=== PATIENT | male | born 1940 | race Caucasian/White ===

== ENCOUNTER → 2016-06-13 | Outpatient (CLI) | payer MEDICARE ==
[~2016-06-13] MED LIST: ASPI325T28 PO; CALCTAB43 PO; CILO100T PO; CO ENZYME Q10; CO-E100C PO; ECOT325T5; FOLI1TAB2 PO; FURO1TAB15 PO; FURO80TA2; GEMF600T; LEVA750T; LEVO125T3 PO; LEVO175T2 PO; LEVOTHROID; LISI-538 PO; LISI10TA4; METH2.5TA PO; NIFE20CA PO; NIFE60TA61 PO; PERC5TAB8; PRED1TABL PO; PROTPAK PO; SAW PALMETTO PO; SAW450CA7 PO; SYNT175T; TRAM50TA2 PO; VITA100072 PO; [UNRECOGNIZED DRUG - CODE] PO
--- NOTE | 2016-06-13 15:28 | REP ---
LOW DOSE SCREENING CT LUNGS: Low dose screening CT of the lungs is performed in the axial plane. No IV contrast was administered. There is a suspicious appearing mass in the lingular segment of the left upper lobe measuring 2.6 x 2.0 cm. More superiorly, in the left upper lobe is a bilobed irregular nodular opacity measuring 1.3 x 0.7 cm. There is an adjacent more medially located 5 mm nodule in the left upper lobe. There are scattered interstitial fibrotic changes diffusely bilaterally. IMPRESSION: Dominant suspicious parenchymal mass with irregular margins in the left upper lobe measuring 2.6 x 2.0 cm. Two other nodules are seen more superiorly in the left upper lobe. Recommend dedicated CT of the chest with IV contrast. Signed by Bryan Knutson MD 06/13/2016 03:59 P
== END ==
LOC: M RAD 14:22
PROVIDERS: ATTEND Family Medicine
DX: Z12.2 Encounter for screening for malignant neoplasm of respiratory organs (principal); R91.8 Other nonspecific abnormal finding of lung field; F17.210 Nicotine dependence, cigarettes, uncomplicated

== ENCOUNTER → 2016-07-08 | Outpatient (CLI) | payer MEDICARE ==
[~2016-07-08] MED LIST changes: +ISOVUE-370 76% 100ML VIAL (Q9967) As Ordered ONE
--- NOTE | 2016-07-08 10:48 | REP ---
CT of the chest with IV contrast: Comparison is the low-dose lung screening CT dated 06/13 2016. There is a mass in the lingular segment of the left upper lobe on image 56 measuring 2.6 x 2.1 cm, similar to the comparison CT. There is a bilobed nodule posterolaterally in the left upper lobe on image 26 measuring 1.4 x 7.1 mm, similar to the comparison study. There is a 5 mm nodule posteromedially in the left upper lobe, adjacent to the major fissure, image 27, similar to the comparison study. No other lung nodules or masses are identified. There are no infiltrates or effusions. There are are the multiple bulla scattered throughout the lung hernandez bilaterally, compatible with bullous emphysema. The azygos lobe is upper normal size measuring 11 mm short axis with a fatty hilus. No other evidence of mediastinal lymph node enlargement. There is no hilar or axillary lymph node enlargement. The thoracic aorta is unremarkable except for occasional calcified atheroma. Cardiac size is normal. There is calcified atheroma in the coronary arteries. Upper abdomen: There is no adrenal mass. The visualized hepatic parenchyma, gallbladder, pancreas and spleen are unremarkable. Impression: There are three left lung nodules as described, the largest in the lingular segment of the left upper lobe. No definite adenopathy. No infiltrate or effusion. There is evidence for bullous emphysema. I would recommend a PET scan for follow up. Biopsy might also be considered. Signed by Bryan Stock MD 07/08/2016 10:40 A
== END ==
LOC: M RAD 09:03
PROVIDERS: ATTEND Family Medicine
DX: R91.8 Other nonspecific abnormal finding of lung field (principal); J43.9 Emphysema, unspecified
CPT/HCPCS: 71260; Q9967

== ENCOUNTER → 2016-07-17 | Outpatient (REF) | payer MEDICARE ==
[~2016-07-17] MED LIST changes: -ISOVUE-370 76% 100ML VIAL (Q9967) As Ordered ONE
[2016-07-17 14:14] LABS: INR 0.98
== END ==
LOC: M LAB REF 12:52
PROVIDERS: ATTEND Internal Medicine Pulmonary Disease
DX: R91.8 Other nonspecific abnormal finding of lung field (principal)

== ENCOUNTER → 2016-08-01 | Outpatient (CLI) | payer MEDICARE ==
[~2016-08-01] MED LIST changes: +LIDOCAINE 1% MDV 20ML VIAL As Ordered ONE
--- NOTE | 2016-08-01 09:55 | REP ---
Chest x-ray: Single PA view. History: Post needle biopsy chest x-ray. The patient had a left upper lobe mass biopsied under CT guidance. Findings: There is no evidence of pneumothorax or hydrothorax. Ill-defined density in the left mid lung zone corresponds to the biopsy target. No other finding. Impression: No evidence of pneumothorax or other complication. Signed by To Saab MD 08/01/2016 12:39 P
--- NOTE | 2016-08-01 16:36 | REP ---
CT GUIDED LEFT LOWER LOBE LUNG BIOPSY: The procedure was performed under the direct supervision of Dr. Saab. The patient has a history of a 2.6 x 2.1 cm mass in the lingular segment of the left upper lobe seen on a previous CAT scan dated 07/08/2016. The risks and benefits of the procedure were explained to the patient and informed consent was obtained. The left upper lobe lung mass was localized using CT guidance. The skin was prepped and draped in a sterile fashion. 1% Lidocaine was used as a local anesthetic. Using CT guidance a 19/20 coaxial needle biopsy system was inserted and then advanced into the mass. 3 core biopsy samples were obtained and sent to the lab. The patient tolerated the procedure well and there were no immediate complications. After the appropriate amount of monitored convalescence the patient was discharged from the department. Reviewed by DUY Swain 08/02/2016 08:47 AEdited and Signed by To Saab MD 08/02/2016 12:45 P
== END ==
LOC: M RADPRO 08:05
PROVIDERS: ATTEND Internal Medicine Pulmonary Disease
DX: C34.12 Malignant neoplasm of upper lobe, left bronchus or lung (principal); Z79.899 Other long term (current) drug therapy; Z79.52 Long term (current) use of systemic steroids

== ENCOUNTER → 2016-08-14 | Outpatient (CLI) | payer MEDICARE ==
[~2016-08-14] MED LIST changes: -LIDOCAINE 1% MDV 20ML VIAL As Ordered ONE
--- NOTE | 2016-08-19 11:32 | REP ---
PET/CT: History: Initial staging, non-small cell carcinoma of the lung. CT guided needle biopsy diagnosis moderately differentiated squamous cell carcinoma. Comparisons: Comparison chest CT study 07/08/2016. TECHNIQUE: 73 minutes following the intravenous injection of a 9.9 mCi dose of F-18 FDG, three-dimensional PET scintigraphy is acquired from the skull base to the proximal thighs. Triplanar noncontrast CT scanning is acquired through the same anatomic range for attenuation correction, and image registration with scan parameters optimized to minimize radiation exposure to the patient. PET scintigraphy and CT datasets were fused and displayed on a workstation with multiplanar and projection display capability. PET/CT Findings: The patient's known left upper lobe mass is hypermetabolic, although only mildly. Maximum standard uptake value is 2.8 in the lesion. There is no other abnormal hypermetabolic uptake in the chest. However, there is a subcentimeter joann focus of hypermetabolic uptake in the left parotid gland preauricular region with maximum standard uptake value 4.1. Similarly, there is a normal sized 1 cm intraparotid lymph node on the right more inferiorly adjacent to the sternocleidomastoid muscle with maximum standard uptake value 4.1. The head and neck soft tissues are otherwise unremarkable. In the abdomen and pelvis, there is normal FDG distribution to the liver and spleen and genitourinary tract and gastrointestinal tract. There is slight thickening of the left adrenal gland. In the posterior aspect of this somewhat thickened left adrenal gland, there is a focus of mildly hypermetabolic uptake. Maximum standard uptake value here is 2.0. This left adrenal gland thickening measures 1.8 cm in greatest diameter. Incidental note is made of abdominal aortic aneurysm and aneurysmal dilation of the celiac axis. Impression: The malignant left upper lobe mass is mildly hypermetabolic. There are intraparotid joann foci of hypermetabolic uptake, one in each parotid gland. These are of uncertain significance. In addition, there is a suspicious area of thickening in the left adrenal gland with mildly hypermetabolic uptake. This is suspicious for a metastatic site. Unreviewed
== END ==
LOC: M PLARAD 16:16
PROVIDERS: ATTEND Internal Medicine Pulmonary Disease
DX: R93.8 Abnormal findings on diagnostic imaging of other specified body structures (principal)
CPT/HCPCS: 78815; A9552

== ENCOUNTER → 2016-09-10 | Outpatient (CLI) | payer MEDICARE ==
[~2016-09-10] MED LIST changes: +LIDOCAINE 1% MDV 20ML VIAL As Ordered ONE
--- NOTE | 2016-09-12 19:32 | REP ---
CT GUIDED LEFT ADRENAL MASS BIOPSY: The procedure was performed under the direct supervision of Dr. Knutson The patient has a history of mildly hypermetabolic uptake in the left adrenal gland seen of a previous PET scan performed on 08/14/2016 The risks and benefits of the procedure were explained to the patient and informed consent was obtained. The left adrenal mass was localized using CT guidance. The skin was prepped and draped in a sterile fashion. 1% Xylocaine was used as a local anesthetic. Using CT guidance a 19/20 gauge coaxial needle biopsy system was inserted and 4 core biopsy samples were obtained. The patient tolerated the procedure well and there were no immediate complications. After the appropriate amount of monitored convalescence, the patient was discharged from the department. Reviewed by DUY Swain 09/10/2016 04:36 PSigned by Bryan Knutson MD 09/12/2016 07:19 P
== END ==
LOC: M RADPRO 08:11
PROVIDERS: ATTEND Thoracic Surgery (Cardiothoracic Vascular Surgery)
DX: C34.12 Malignant neoplasm of upper lobe, left bronchus or lung (principal); D35.02 Benign neoplasm of left adrenal gland; F17.210 Nicotine dependence, cigarettes, uncomplicated; Z79.82 Long term (current) use of aspirin; Z79.52 Long term (current) use of systemic steroids; Z79.899 Other long term (current) drug therapy

== ENCOUNTER → 2016-09-20 | Outpatient (CLI) | payer MEDICARE ==
[~2016-09-20] MED LIST changes: -LIDOCAINE 1% MDV 20ML VIAL As Ordered ONE; +NIFE60TA6 PO; +ZOLO50TA PO
--- NOTE | 2016-09-20 13:43 | REP ---
CT STUDY OF THE CHEST WITHOUT CONTRAST: HISTORY: Left upper lung cancer. Comparison CT study is from July 08, 2016. CT FINDINGS: The previously noted malignant left upper lobe nodule is again seen. This measures 2.4 cm in greatest diameter today and appears to be unchanged. There is a small linear area of what appears to be fibrosis or plate-like atelectasis extending posterior and peripheral to the lesion which is better seen although not new. The lesion is again noted be cavitary. There has been no change in the size or appearance of the left apical upper lobe pulmonary nodule. Today this measures 12.4 x 6.0 cm and is felt to be unchanged. It is seen on today's study page 21 of 116 series 201. Nearby there is a third left upper lobe nodule measuring 4 mm today unchanged since July 08, 2016. This is seen on page 23 of 116. No other pulmonary nodule is seen. Emphysematous changes persist throughout the upper lobes bilaterally. No pleural effusion is seen. Heavy coronary artery vascular calcification is noted. Some slight thickening of the left adrenal gland is seen. This was recently biopsied. There is fatty infiltration of the liver. No hilar or mediastinal mass or adenopathy is seen. No bony destructive lesion is noted. IMPRESSION: No significant change in the appearance of the cavitary spiculated mass in the left upper lobe or in the other two smaller noncalcified left upper lobe nodules in the interval since July 08, 2016 prior study. Signed by To Saab MD 09/20/2016 04:26 P
== END ==
LOC: M RAD 13:30
PROVIDERS: ATTEND Thoracic Surgery (Cardiothoracic Vascular Surgery)
DX: C34.12 Malignant neoplasm of upper lobe, left bronchus or lung (principal)

== ENCOUNTER → 2016-09-20 | Outpatient (CLI) | payer MEDICARE ==
[~2016-09-20] MED LIST changes: +ALBU17IN INH; -CALCTAB43 PO; +CALCTAB74 PO; -FOLI1TAB2 PO; +FOLI1TAB4 PO; -FURO1TAB15 PO; +FURO80TA2 PO; -LEVO125T3 PO; +LEVO125T4 PO; +LOPR1TAB6 PO; +PRED20TA PO; +SAW450CA2 PO; -SAW450CA7 PO
[2016-09-20 11:27] LABS: ABG BASE EXCESS 0.6 (-2.0-2.0); ABG DEVICE ROOM AIR; ABG HCO3 24.1 MEQ/L (22.0-26.0); ABG PARTIAL PRESSURE CO2 35.3 mmHg (35.0-45.0); ABG PARTIAL PRESSURE O2 76.7 mmHg (75.0-100.0); ABG TOTAL CO2 25.2 MEQ/L (23.0-31.0); ABG pH (ARTERIAL) 7.452 UNITS (7.350-7.450)
[2016-09-20 11:50] LABS: MEAN CORPUSCULAR HEMOGLOBIN 33.7 pg (27.0-33.0); MEAN CORPUSCULAR HGB CONC 33.9 g/dl (32.0-36.5); MEAN CORPUSCULAR VOLUME 99.3 fl (80.0-96.0); RED CELL DISTRIBUTION WIDTH 15.7 % (11.5-14.5); WHITE BLOOD COUNT 7.9 K/mm3 (4.0-10.0)
[2016-09-20 12:00] LABS: INR 1.03
[2016-09-20 12:10] LABS: ANION GAP 5 MEQ/L (8-16); BLOOD UREA NITROGEN 15 MG/DL (7-18); CALCIUM LEVEL 9.4 MG/DL (8.8-10.2); CARBON DIOXIDE LEVEL 27 MEQ/L (21-32); CHLORIDE LEVEL 107 MEQ/L (98-107); CREATININE FOR GFR 0.96 MG/DL (0.70-1.30); GLOMERULAR FILTRATION RATE > 60.0 (>42); GLUCOSE, FASTING 116 MG/DL (83-110); SODIUM LEVEL 139 MEQ/L (136-145)
--- NOTE | 2016-09-20 12:46 | REP ---
CHEST, TWO VIEWS: HISTORY: Left upper lobe cancer. An ill-defined parenchymal density is present in the left mid lung unchanged compared to the previous study. This is at the site of a previous biopsy. The right lung is clear. The heart is normal in size. The pulmonary vasculature is normal in appearance. The bony structure is intact. IMPRESSION: There is an ill-defined parenchymal density in the left mid lung unchanged compared to the previous study. This is at the site of a previous biopsy. Signed by Brady Jacobo MD 09/20/2016 01:16 P
== END ==
LOC: M ADMPAT 09:49
PROVIDERS: ATTEND Thoracic Surgery (Cardiothoracic Vascular Surgery)
DX: C34.12 Malignant neoplasm of upper lobe, left bronchus or lung (principal)

== ENCOUNTER → 2016-09-25 | Outpatient (CLI) | payer MEDICARE ==
[~2016-09-25] MED LIST changes: -ALBU17IN INH; +CALCTAB43 PO; -CALCTAB74 PO; +FOLI1TAB2 PO; -FOLI1TAB4 PO; +FURO1TAB15 PO; -FURO80TA2 PO; +LEVO125T3 PO; -LEVO125T4 PO; +LIDOCAINE 1% MDV 20ML VIAL As Ordered ONE; -LOPR1TAB6 PO; -PRED20TA PO; -SAW450CA2 PO; +SAW450CA7 PO
--- NOTE | 2016-09-25 14:21 | REP ---
ULTRASOUND-GUIDED BILATERAL PAROTID NODULE BIOPSY: The procedure was performed under the direct supervision of Dr. Knutson. The patient has a history of intraparotid joann foci of hypermetabolic uptake, one in each parotid gland seen on a previous PET scan performed on 08/14/2016. The risks and benefits of the procedure were explained to the patient, and informed consent was obtained. The right and left parotid nodules were localized using ultrasound guidance. The skin was prepped and draped in a sterile fashion. The left parotid nodule was addressed first. 1% Xylocaine was used as a local anesthetic. Using ultrasound guidance, four fine-needle aspirations were obtained using 25 gauge needles. The right parotid nodule was then addressed. 1% Xylocaine was used as a local anesthetic. Using ultrasound guidance, four fine-needle aspirations were obtained using 25 gauge needles. All samples were sent to the lab for analysis. The patient tolerated the procedure well, and there were no immediate complications. After the appropriate amount of monitored convalescence, the patient was discharged from the department. Reviewed by DUY Swain 09/25/2016 04:57 PEdited and Signed by Bryan Knutson MD 09/25/2016 07:53 P
== END ==
LOC: M RADPRO 10:39
PROVIDERS: ATTEND Otolaryngology
DX: D11.0 Benign neoplasm of parotid gland (principal); Z87.891 Personal history of nicotine dependence; Z91.018 Allergy to other foods; Z79.899 Other long term (current) drug therapy

== ENCOUNTER 2016-09-27 07:01 | Inpatient (IN) | payer MEDICARE ==
[2016-09-20 10:21] VITALS: BP 120/60
[~2016-09-27] VITALS: Ht 165.1 cm; Wt 75.8 kg
[2016-09-27] VITALS (11 sets, daily range): BP systolic 136–157; BP diastolic 65–74; O2SAT 93–97
[~2016-09-27 07:01] MED LIST changes: -CALCTAB43 PO; +CALCTAB74 PO; -FOLI1TAB2 PO; +FOLI1TAB4 PO; -FURO1TAB15 PO; +FURO80TA2 PO; -LEVO125T3 PO; +LEVO125T4 PO; -LIDOCAINE 1% MDV 20ML VIAL As Ordered ONE; -NIFE60TA6 PO; +SAW450CA2 PO; -SAW450CA7 PO
[2016-09-27] MEDS ORDERED: LR 1,000 ML IV ONE (07:15)
[2016-09-27] MEDS ORDERED: MUPIROCIN 2% OINT 22 GM TUBE TOP ONE (07:30)
[2016-09-27] MEDS ORDERED: BUPIVACAINE HCL 0.5% 30 ML VIAL As Ordered ONE (07:32)
[2016-09-27] MEDS ORDERED: BUPIVACAINE LIPOSOME/PF 1.3% 20 ML VIAL (13.3MG/ML)(EXPAREL) As Ordered ONE ×2 (07:32→11:28)
[2016-09-27] MEDS ORDERED: MIDAZOLAM INJ 2 MG/2 ML VIAL (J2250) As Ordered ONE ×2 (08:02→09:38)
[2016-09-27] MEDS ORDERED: fentaNYL 100 MCG/2 ML INJECTION (J3010) As Ordered ONE (08:02)
[2016-09-27] MEDS ORDERED: PANTOPRAZOLE 40MG INJ (PROTONIX) (C9113) IV SCH (09:00)
[2016-09-27] MEDS ORDERED: MIDAZOLAM INJ 2 MG/2 ML VIAL (J2250) IV ONE (09:15)
[2016-09-27] MEDS ORDERED: fentaNYL 100 MCG/2 ML INJECTION (J3010) IV ONE (09:15)
[2016-09-27] MEDS ORDERED: ETOMIDATE INJ 20MG/10ML VIAL As Ordered ONE (09:38)
[2016-09-27] MEDS ORDERED: LIDOCAINE 2% INJ 100 MG/5 ML SDV (FOR ANES.) As Ordered ONE (09:38)
[2016-09-27] MEDS ORDERED: ONDANSETRON 4MG/2ML VIAL (J2405) As Ordered ONE ×2 (09:38→11:34)
[2016-09-27] MEDS ORDERED: PROPOFOL 200 MG/20 ML VIAL As Ordered ONE (09:38)
[2016-09-27] MEDS ORDERED: ROCURONIUM BROMIDE 50 MG/5 ML VIAL/SYRINGE As Ordered ONE ×2 (09:38→11:17)
[2016-09-27] MEDS ORDERED: DESFLURANE 240 ML INHALANT As Ordered ONE ×2 (09:38→10:08)
[2016-09-27] MEDS ORDERED: fentaNYL 250 MCG/5 ML INJECTION (J3010) As Ordered ONE (09:38)
[2016-09-27] MEDS ORDERED: NIFE60TA6 PO (09:58)
[2016-09-27] MEDS ORDERED: BUPIVACAINE HCL 0.25% 30 ML VIAL As Ordered ONE (10:08)
[2016-09-27] MEDS ORDERED: GLYCOPYRROLATE INJ 0.2 MG/ML 2 ML VIAL As Ordered ONE ×2 (10:15→11:34)
[2016-09-27] MEDS ORDERED: HYDROmorphone HCL 2 MG/ML 1ML VIAL (J1170) As Ordered ONE (10:58)
[2016-09-27] MEDS ORDERED: LABETALOL HCL 100 MG/20 ML VIAL As Ordered ONE (11:26)
[2016-09-27] MEDS ORDERED: ONDANSETRON 4MG/2ML VIAL (J2405) IV PRN ×2 (11:30→13:00)
[2016-09-27] MEDS ORDERED: METOCLOPRAMIDE INJ 10MG/2ML VIAL (J2765) IV PRN (11:30)
[2016-09-27] MEDS ORDERED: diphenhydrAMINE INJ 50MG/ML VIAL (J1200) IV PRN (11:30)
[2016-09-27] MEDS ORDERED: NALOXONE INJ 0.4 MG/1 ML VIAL (J2310) IV PRN (11:30)
[2016-09-27] MEDS ORDERED: WALLBOXKEY XX PRN (11:30)
[2016-09-27] MEDS ORDERED: EPIDURAL/PCA KEYS XX PRN (11:30)
[2016-09-27] MEDS ORDERED: NEOSTIGMINE 1MG/ML 5 ML SYRINGE (J2710) As Ordered ONE (11:34)
[2016-09-27] MEDS ORDERED: PHENYLephrine HCL 500 MCG/5 ML (100MCG/ML) SYRINGE (J2370) As Ordered ONE ×2 (11:40→12:05)
[2016-09-27] MEDS ORDERED: LEVALBUTEROL 1.25 MG/0.5 ML CONCENTRATE NEB NEB PRN (12:30)
[2016-09-27] MEDS ORDERED: BISACODYL 10 MG SUPP PR PRN (12:30)
[2016-09-27] MEDS ORDERED: NORCO, ANEXSIA 5/325MG TABLET (HYDROcodone/ACETAMINOPHEN) PO PRN (12:30)
[2016-09-27] MEDS ORDERED: PERCOCET 5MG/325MG TAB PO PRN ×2 (12:30)
[2016-09-27] MEDS ORDERED: ACETAMINOPHEN TAB 650MG DOSE (2X325MG) PO PRN (12:30)
[2016-09-27 12:53] LABS: ABG BASE EXCESS -5.1 (-2.0-2.0); ABG HCO3 22.6 MEQ/L (22.0-26.0); ABG PARTIAL PRESSURE CO2 52.5 mmHg (35.0-45.0); ABG PARTIAL PRESSURE O2 171.1 mmHg (75.0-100.0); ABG STANDARD HCO3 20.3 MEQ/L (22.0-26.0); ABG TOTAL CO2 24.2 MEQ/L (23.0-31.0); ABG pH (ARTERIAL) 7.251 UNITS (7.350-7.450)
[2016-09-27 12:58] LABS: BASO % 0.3 % (0.0-1.0); EOS # 0.1 K/mm3 (0.0-0.50); EOS % 0.5 % (0.0-3.0); LARGE UNSTAINED CELL % 0.1 % (0.0-4.0); LYMPH # 0.6 K/mm3 (1.5-4.5); LYMPH % 4.5 % (24.0-44.0); MEAN CORPUSCULAR HEMOGLOBIN 34.1 pg (27.0-33.0); MEAN CORPUSCULAR VOLUME 100.1 fl (80.0-96.0); MONO # 0.2 K/mm3 (0.0-0.8); MONO % 1.2 % (0.0-5.0); NEUTROPHILS # 12.5 K/mm3 (1.8-7.7); NEUTROPHILS % 93.3 % (36.0-66.0); PLATELET COUNT, AUTOMATED 308 k/mm3 (150-450); WHITE BLOOD COUNT 13.4 K/mm3 (4.0-10.0)
[2016-09-27] MEDS ORDERED: fentaNYL 100 MCG/2 ML INJECTION (J3010) IV PRN (13:00)
[2016-09-27] MEDS ORDERED: LR 1,000 ML IV SCH (13:00)
[2016-09-27 13:15] LABS: CALCIUM LEVEL 7.8 MG/DL (8.8-10.2); CREATININE FOR GFR 1.31 MG/DL (0.70-1.30); GLOMERULAR FILTRATION RATE 56.8 (>42); POTASSIUM SERUM 4.6 MEQ/L (3.5-5.1)
--- NOTE | 2016-09-27 13:36 | REP ---
PORTABLE CHEST: AP portable view of the chest is performed. Comparison made with prior exam 09/20/2016. There are two left chest tubes. Patient has had left upper lobectomy. There is mild emphysema in the left chest wall. Cardiomediastinal silhouette appears somewhat magnified. There are coarsened interstitial opacities in the right lung base. Signed by Bryan Knutson MD 09/27/2016 05:23 P
[2016-09-27] MEDS: LEVALBUTEROL 1.25 MG/0.5 ML CONCENTRATE NEB NEB SCH ×2 (14:00→20:16)
[2016-09-27] MEDS ORDERED: KETOROLAC 30 MG/ML VIAL (J1885) IV SCH (14:00)
[2016-09-27 14:10] LABS: ABG BASE EXCESS -3.1 (-2.0-2.0); ABG HCO3 22.6 MEQ/L (22.0-26.0); ABG PARTIAL PRESSURE CO2 42.8 mmHg (35.0-45.0); ABG PARTIAL PRESSURE O2 98.3 mmHg (75.0-100.0); ABG STANDARD HCO3 21.9 MEQ/L (22.0-26.0); ABG TOTAL CO2 23.9 MEQ/L (23.0-31.0)
[2016-09-27] MEDS: FENTANYL/BUPIVACAINE/NACL BAG 250 ML EPIDURAL SCH (16:15)
[2016-09-27] MEDS: KCL 20MEQ IN D5/NS 1000ML 1,000 ML IV SCH (16:16)
[2016-09-27] MEDS: MOM 30ML SUSPENSION UDC PO SCH (16:59)
[2016-09-27] MEDS: LISINOPRIL 20 MG TAB PO SCH (16:59)
[2016-09-27] MEDS: DOCUSATE SODIUM 100 MG CAP PO SCH ×2 (16:59→21:18)
[2016-09-27] MEDS ORDERED: CALCIUM/VITAMIN D 500 MG TAB PO SCH ×2 (21:00→21:18)
[2016-09-27] MEDS: NIFEdipine 60 MG XL TAB PO SCH (21:18)
[2016-09-27] MEDS: predniSONE 1 MG TAB PO SCH (21:18)
[2016-09-27] MEDS: HEPARIN SOD (PORCINE) 5000 UNITS/ML VIAL SC SCH (21:19)
[2016-09-27] MEDS: CALCIUM/VITAMIN D 500 MG TAB PO SCH (21:41)
[2016-09-28] VITALS (17 sets, daily range): BP systolic 116–170; BP diastolic 60–77; O2SAT 90–95
[2016-09-28] MEDS: LEVALBUTEROL 1.25 MG/0.5 ML CONCENTRATE NEB NEB SCH ×4 (01:40→20:11)
[2016-09-28] MEDS: KCL 20MEQ IN D5/NS 1000ML 1,000 ML IV SCH ×2 (02:32→16:40)
[2016-09-28 05:29] LABS: BASO % 0.2 % (0.0-1.0); EOS % 0.1 % (0.0-3.0); LARGE UNSTAINED CELL # 0.1 K/mm3 (0.0-0.4); LARGE UNSTAINED CELL % 0.8 % (0.0-4.0); LYMPH # 1.2 K/mm3 (1.5-4.5); LYMPH % 7.9 % (24.0-44.0); MEAN CORPUSCULAR HEMOGLOBIN 33.9 pg (27.0-33.0); MEAN CORPUSCULAR HGB CONC 33.5 g/dl (32.0-36.5); MEAN CORPUSCULAR VOLUME 101.2 fl (80.0-96.0); MONO # 0.5 K/mm3 (0.0-0.8); MONO % 3.8 % (0.0-5.0); NEUTROPHILS # 11.8 K/mm3 (1.8-7.7); NEUTROPHILS % 87.3 % (36.0-66.0); PLATELET COUNT, AUTOMATED 238 k/mm3 (150-450); RED CELL DISTRIBUTION WIDTH 16.1 % (11.5-14.5); WHITE BLOOD COUNT 13.5 K/mm3 (4.0-10.0)
[2016-09-28 05:36] LABS: ANION GAP 5 MEQ/L (8-16); BLOOD UREA NITROGEN 17 MG/DL (7-18); CALCIUM LEVEL 8.2 MG/DL (8.8-10.2); CARBON DIOXIDE LEVEL 29 MEQ/L (21-32); CHLORIDE LEVEL 102 MEQ/L (98-107); CREATININE FOR GFR 0.99 MG/DL (0.70-1.30); GLOMERULAR FILTRATION RATE > 60.0 (>42); GLUCOSE, FASTING 132 MG/DL (83-110); POTASSIUM SERUM 4.1 MEQ/L (3.5-5.1); SODIUM LEVEL 136 MEQ/L (136-145)
[2016-09-28 06:08] LABS: ABG BASE EXCESS -1.2 (-2.0-2.0); ABG HCO3 23.2 MEQ/L (22.0-26.0); ABG PARTIAL PRESSURE O2 78.2 mmHg (75.0-100.0); ABG STANDARD HCO3 23.4 MEQ/L (22.0-26.0); ABG TOTAL CO2 24.3 MEQ/L (23.0-31.0); ABG pH (ARTERIAL) 7.403 UNITS (7.350-7.450)
--- NOTE | 2016-09-28 08:48 | REP ---
Chest x-ray: Two views. History: Status post left upper lobectomy. Comparison study September 27, 2016 at 01:06 p.m. Findings: There are two left-sided chest tubes again noted in place. Mild extrathoracic soft tissue gas is seen on the left. Left hemidiaphragm is slightly elevated consistent with left upper lobectomy. An epidural catheter and EKG monitoring electrodes are again seen. Mild cardiomegaly is noted. No new infiltrate is seen. Impression: Satisfactory postoperative chest. Signed by To Saab MD 09/28/2016 09:55 A
[2016-09-28] MEDS: PANTOPRAZOLE 40MG TAB (PROTONIX) PO SCH (09:41)
[2016-09-28] MEDS: CYANOCOBALAMIN 500 MCG TAB PO SCH (09:41)
[2016-09-28] MEDS: MOM 30ML SUSPENSION UDC PO SCH (09:41)
[2016-09-28] MEDS: LEVOTHYROXINE 100MCG TABLET (0.1MG) PO SCH (09:41)
[2016-09-28] MEDS: SERTRALINE HCL 50 MG TAB PO SCH (09:42)
[2016-09-28] MEDS: FOLIC ACID 1 MG TAB PO SCH (09:42)
[2016-09-28] MEDS: CALCIUM/VITAMIN D 500 MG TAB PO SCH ×2 (09:42→20:28)
[2016-09-28] MEDS: predniSONE 1 MG TAB PO SCH ×2 (09:42→20:28)
[2016-09-28] MEDS: NIFEdipine 60 MG XL TAB PO SCH ×2 (09:42→20:28)
[2016-09-28] MEDS: LISINOPRIL 20 MG TAB PO SCH (09:42)
[2016-09-28] MEDS: HEPARIN SOD (PORCINE) 5000 UNITS/ML VIAL SC SCH ×2 (09:42→20:28)
[2016-09-28] MEDS: DOCUSATE SODIUM 100 MG CAP PO SCH ×2 (09:42→20:28)
[2016-09-28] MEDS: FUROSEMIDE 80 MG TAB PO SCH (09:42)
[2016-09-28] MEDS: CO-ENZYME Q10 50 MG CAP PO SCH (09:43)
[2016-09-28] MEDS: ACETAMINOPHEN 500 MG TAB PO PRN (10:42)
[2016-09-28] MEDS ORDERED: KETOROLAC 30 MG/ML VIAL (J1885) IV ONE (11:00)
--- NOTE | 2016-09-28 11:44 | RO ---
DATE OF PROCEDURE: 09/27/2016 PREPROCEDURE DIAGNOSIS: Left upper lobe lung cancer. POSTPROCEDURE DIAGNOSIS: Left upper lobe lung cancer. PROCEDURE: Left upper lobectomy, mediastinal lymphadenectomy, five-level rib block and bronchoscopy. SURGEON: Dr. Franki Fulton BRAND REPRESENTATIVE: ANESTHESIA: FINDINGS: There was an approximately 2-3 cm left upper lobe lesion. This was previously noted from the CT scan. The lymphadenectomy showed grossly anthracotic nodes. There was a complete fissure, and there were four separate branches to the left upper lobe. DESCRIPTION OF PROCEDURE: Under satisfactory general anesthesia and single lumen tube endotracheal intubation, bronchoscope was placed into the tracheobronchial tree. Each bronchus was thoroughly inspected and suction aspirated. The left side had more copious secretions, and these were cleared with bronchoalveolar lavage. There were no endobronchial lesions seen in each segment or subsegment. The patient then underwent double lumen tube endotracheal intubation and the position was checked with bronchoscopy again. The patient was then turned to the right lateral decubitus position and prepped and draped in the usual sterile fashion. A posterolateral thoracotomy incision was made. The latissimus dorsi was divided and a slip of the serratus was divided. The chest was entered through the 5th intercostal space. He had a complete fissure. The pulmonary artery was found in the depths of the fissure. The posterior mediastinal pleura was then incised, and the interlobar pulmonary artery was exposed. Posterior fissure was then completed with an [place] ELMER stapler. The lingular artery, which was quite large, was identified and was the first branch seen distally. This was divided by a vascular ELMER stapler. Successively, four more medium to large branches were divided to include the most apical branch by use of the same stapler. There was one very small 2 mm vessel that came directly off the pulmonary artery. This was incised incompletely. It was then clipped with two hemoclips. The inferior pulmonary ligament was released, and the inferior pulmonary vein was identified. Likewise, the superior pulmonary vein was identified. The juncture between the two was developed. The upper lobe vein was rather large, and therefore, the major fissure anteriorly was completed first with an [place] ELMER stapler. This then left more room to dissect the vein, which eventually was completely dissected off the bronchus and divided by use of a vascular ELMER stapler. This then left the bronchus. This was clamped and cut with a TX30, 4.8 stapler. Prior to cutting the bronchus, the bronchus was tested and the left lower lobe inflated and the upper lobe did not. The lobe was then amputated and sent to the lab for pathological examination. The AP window was then opened and the mediastinal nodes were removed. There was only one or two mediastinal nodes; these looked anthracotic. Bronchus was tested to 40 cm of water pressure and was found to be intact. There were a couple of parenchymal leaks. Two chest tubes were placed, one posteriorly at a right angle a #28 and anteriorly a straight #24, Five-level rib block was instilled with Exparel/Marcaine mixture. Tisseel glue was placed on all the vessel and bronchial staple lines along with the lobar completion fissure staple line. The chest was then closed with interrupted [id number] #1 Prolene sutures as intercostal pericostal sutures. The extrathoracic muscles were closed with a running #0 Vicryl suture, the subcutaneous tissue was closed with running #3-0 Vicryl suture and the skin was closed with running #3-0 Monocryl subcuticular suture. Before going onto each layer, Exparel was injected into the muscle layer and subcutaneous tissue layer. The patient tolerated the procedure well and left the operating room in satisfactory condition for the recovery room.
[2016-09-28] MEDS: FENTANYL/BUPIVACAINE/NACL BAG 250 ML EPIDURAL SCH (12:37)
[2016-09-28] MEDS: KETOROLAC 30 MG/ML VIAL (J1885) IV SCH ×2 (17:21→23:14)
[2016-09-29] VITALS (17 sets, daily range): BP systolic 130–148; BP diastolic 60–83; O2SAT 89–92
[2016-09-29] MEDS: LEVALBUTEROL 1.25 MG/0.5 ML CONCENTRATE NEB NEB SCH ×5 (01:57→20:35)
[2016-09-29 03:30] LABS: ABG BASE EXCESS -0.3 (-2.0-2.0); ABG HCO3 23.6 MEQ/L (22.0-26.0); ABG PARTIAL PRESSURE CO2 36.5 mmHg (35.0-45.0); ABG PARTIAL PRESSURE O2 59.2 mmHg (75.0-100.0); ABG STANDARD HCO3 24.1 MEQ/L (22.0-26.0); ABG TOTAL CO2 24.7 MEQ/L (23.0-31.0); ABG pH (ARTERIAL) 7.429 UNITS (7.350-7.450)
[2016-09-29 03:47] LABS: BASO % 0.3 % (0.0-1.0); EOS # 0.1 K/mm3 (0.0-0.50); LARGE UNSTAINED CELL # 0.1 K/mm3 (0.0-0.4); LARGE UNSTAINED CELL % 0.7 % (0.0-4.0); LYMPH # 0.9 K/mm3 (1.5-4.5); LYMPH % 6.4 % (24.0-44.0); MEAN CORPUSCULAR HEMOGLOBIN 33.6 pg (27.0-33.0); MEAN CORPUSCULAR HGB CONC 33.6 g/dl (32.0-36.5); MEAN CORPUSCULAR VOLUME 100.2 fl (80.0-96.0); MONO # 0.6 K/mm3 (0.0-0.8); MONO % 4.4 % (0.0-5.0); NEUTROPHILS # 11.1 K/mm3 (1.8-7.7); NEUTROPHILS % 87.3 % (36.0-66.0); PLATELET COUNT, AUTOMATED 209 k/mm3 (150-450); RED CELL DISTRIBUTION WIDTH 16.4 % (11.5-14.5); WHITE BLOOD COUNT 12.7 K/mm3 (4.0-10.0)
[2016-09-29] MEDS ORDERED: FUROSEMIDE 40 MG/4 ML VIAL (J1940) IV ONE (04:00)
[2016-09-29 04:09] LABS: ANION GAP 5 MEQ/L (8-16); BLOOD UREA NITROGEN 17 MG/DL (7-18); CALCIUM LEVEL 8.1 MG/DL (8.8-10.2); CARBON DIOXIDE LEVEL 27 MEQ/L (21-32); CHLORIDE LEVEL 107 MEQ/L (98-107); CREATININE FOR GFR 0.86 MG/DL (0.70-1.30); GLOMERULAR FILTRATION RATE > 60.0 (>42); GLUCOSE, FASTING 137 MG/DL (83-110); POTASSIUM SERUM 4.1 MEQ/L (3.5-5.1); SODIUM LEVEL 139 MEQ/L (136-145)
[2016-09-29] MEDS: KETOROLAC 30 MG/ML VIAL (J1885) IV SCH ×4 (05:11→23:53)
--- NOTE | 2016-09-29 06:52 | IPN ---
DATE: 09/28/2016 This is now the first postoperative day for Mr. Howard who has had a stable night of surgery. His vital signs show a maximum temperature (Tmax) of 99.3 with a heart rate that ranges between 83-81 and is sinus rhythm, respiratory rate that is constant at 20 who is 91-95% saturated on 4 liters nasal cannula and whose blood pressure is ranging between 148/70 to 170/77. His intake and output over the past 24 hours has been recorded as 2275 in and 1194 out for a positivity of 1080 mL. He has put out 234 mL from the chest tube and there is a very small, one bubble air leak. He weighs 87.6 kg today compared to 85 preoperatively. On physical examination, he does have bilateral wheezing on either side both during inspiration and expiration. He has coarse rhonchi that only partially clear with coughing. Percussion note is full to the diaphragm. There is no subcutaneous emphysema over the chest wall. Cardiac exam is without murmurs, clicks, gallops or rubs. I cannot feel her point of maximum impulse (PMI). S1, S2 are normal. Abdomen is soft and nontender. Bowel sounds are positive. He is however, distended and tympanitic. He is passing flatus. Extremities show no pretibial edema, no calf tenderness. No differential swelling of the upper extremities. Skin is warm, dry and perfused without cyanosis or mottling, including that of the nail beds and the knees. Neck is supple. There is no jugular venous distention, no subcutaneous emphysema. Trachea is midline. Mouth shows his mucous membranes to be pink and moist. Lips and commissures without lesions. There is no thrush. Eyes show his pupils to be equal and reactive. Extraocular motions are intact. Sclerae anicteric. Neuro shows II-XII intact along with gross motor and gross sensation intact. Gait is not tested. Psychiatric shows him to be awake and alert, oriented times three with appropriate mood and affect and conversational. His blood gases today show a pH of 7.40 with a pCO2 of 38 and a pO2 of 78. He has a base excess of minus 1.2. His white count is 13.5 with a hemoglobin and hematocrit of 14.1 and 42.0, with a platelet count of 238. Differential shows 87% neutrophils, 7% lymphocytes, 3% monocytes. Electrolytes are normal with a BUN and creatinine that has normalized to 17 and 0.99, and I will restart his Toradol. Glucose is 132 with calcium 8.2. His chest x-ray shows his lung fully expanded to the chest wall. Chest tubes are in good place. There is some subcutaneous emphysema on the lateral chest wall. Costophrenic angles are sharp. I seen no infiltrates. He does have what looks to be atelectatic changes on the lateral film posteriorly. IMPRESSION: 1. Squamous cell carcinoma left upper lobe, clinical, stage 1 disease. 2. Chronic obstructive pulmonary disease (COPD). 3. Bilateral parotid tumors. 4. Hyperthyroidism. 5. Hypertension. 6. Rheumatoid arthritis. 7. Gastroesophageal reflux disease. 8. Depression. PLAN AND DISCUSSION: I will not diurese him today. We will add Toradol for his shoulder pain. We will continue him on chest tube suction. We will get him up and around and mobilize him. [facility]
--- NOTE | 2016-09-29 08:41 | REP ---
Portable chest x-ray: Single view. History: Oxygen desaturation. Comparison chest x-ray September 28, 2016. Findings: Today's x-ray is exposed at a slightly lesser inspiratory level. Two left chest tubes remain in place unchanged. There is a decreased amount of extrathoracic soft tissue air. No visible pneumothorax. Allowing for the difference in inspiration, the left hemithorax is unchanged. On the right however, there is a new infiltrate in the perihilar region. This is fairly large. Epidural catheter and EKG monitoring electrodes are seen. Impression: New infiltrate in the right perihilar region consistent with pneumonitis. Signed by To Saab MD 09/29/2016 09:01 A
--- NOTE | 2016-09-29 08:50 | ECGEPIP ---
Stationary ECG Study [facility] Test Date: 2016-09-29 Pat Name: CAROLINE YAÑEZ Department: Room: [place] [address] Gender: M [employer] Machine Operator: PAOLA : 1940 Requested By: Franki Ornelas Order Number: [id number] Reading MD: Harsh Garcia Measurements Intervals [place] Rate: 88 P: 23 NH: 192 QRS: -9 QRSD: 149 T: 0 QT: 366 QTc: 445 Interpretive Statements Normal sinus rhythm with occasional PACs Right bundle branch block with associated repolarization abnormalities No significant change since prior tracing of 08/27/2014 Electronically Signed On 09-29-2016 8:49:48 EDT by Harsh Garcia
[2016-09-29] MEDS: MOM 30ML SUSPENSION UDC PO SCH (09:00)
--- NOTE | 2016-09-29 09:10 | REP ---
Chest x-ray: Two views. History: Status post left upper lobectomy. Comparison study: September 29, 2016 at 03:04 a.m. Findings: Two left chest tubes remain in place. Left hemidiaphragm remains elevated. There is no visible pneumothorax. There is a small quantity of subcutaneous air in the extrathoracic soft tissues along the left chest wall as before. There is a right perihilar infiltrate again noted unchanged. EKG monitoring electrodes and epidural catheter remain. Impression: Fairly large right perihilar infiltrate persists. Otherwise unchanged. Signed by To Saab MD 09/29/2016 09:13 A
[2016-09-29] MEDS: HEPARIN SOD (PORCINE) 5000 UNITS/ML VIAL SC SCH ×2 (10:21→20:56)
[2016-09-29] MEDS: NIFEdipine 60 MG XL TAB PO SCH ×2 (10:21→20:56)
[2016-09-29] MEDS: CYANOCOBALAMIN 500 MCG TAB PO SCH (10:21)
[2016-09-29] MEDS: FOLIC ACID 1 MG TAB PO SCH (10:22)
[2016-09-29] MEDS: LISINOPRIL 20 MG TAB PO SCH (10:22)
[2016-09-29] MEDS: CALCIUM/VITAMIN D 500 MG TAB PO SCH ×2 (10:22→20:56)
[2016-09-29] MEDS: predniSONE 1 MG TAB PO SCH ×2 (10:22→20:56)
[2016-09-29] MEDS: PANTOPRAZOLE 40MG TAB (PROTONIX) PO SCH (10:22)
[2016-09-29] MEDS: DOCUSATE SODIUM 100 MG CAP PO SCH ×2 (10:22→21:00)
[2016-09-29] MEDS: LEVOTHYROXINE 100MCG TABLET (0.1MG) PO SCH (10:23)
[2016-09-29] MEDS: CO-ENZYME Q10 50 MG CAP PO SCH (10:23)
[2016-09-29] MEDS: SERTRALINE HCL 50 MG TAB PO SCH (10:24)
[2016-09-29] MEDS: FENTANYL/BUPIVACAINE/NACL BAG 250 ML EPIDURAL SCH (11:18)
--- NOTE | 2016-09-29 15:32 | IPN ---
DATE: 09/29/2016 Mr. Howard had a difficult night last night. I called in around 3 o'clock after he had gone to the bathroom and had what was determined as explosive diarrhea. He then felt as if he had pulled his chest tubes and desaturated down into the mid 80s even on 100% rebreather. His chest x-ray showed the chest tubes to be in good place, and they were functioning. However, it also showed what I am interpreting as a pulmonary edema pattern. He was, therefore, diuresed with 40 mg of intravenous (IV) Lasix. He put out approximately 1100 mL of urine with improvement in his hypoxia and was able to be weaned back to a nasal cannula. This morning, he is sitting up in a chair and eating breakfast. He still has shortness of breath with exertion. He did go down to x-ray today but in a wheelchair. His vital signs show a maximum temperature (T max) of 99.4 with a heart rate that ranges between 89 and 79 and is sinus rhythm, respiratory rate of 18 to 20 without the use of accessory muscles who is 92% saturated now on 8 liters nasal cannula, high flow. Blood pressure is 139/67 to 144/67. His intake and output over the past 24 hours has been recorded as 2315 in and 2610 out for a negativity of 300 ML. He put 410 mL from the chest tube yesterday. Overnight since 12 o'clock, his intake and output show a negativity of 1085 mL with 1175 mL urine output and 150 mL from the chest tube. There is still a small air leak on forceful cough. PHYSICAL EXAMINATION: His bilateral wheezing is much improved. There is still some rhonchi and rales. Percussion note is full to the diaphragm. Cardiac exam is without murmurs, clicks, gallops or rubs. I cannot feel his point of maximum impulse (PMI). S1, S2 are normal. Abdomen is soft and nontender. Bowel sounds are positive. There is no hepatomegaly. Extremities show trace pretibial edema. No calf tenderness. No differential swelling of the upper extremities. Skin is warm, dry and perfused without cyanosis or mottling, including that of the nail beds and the knees. Neck is supple. There is no jugular venous distention, no subcutaneous emphysema. Trachea is midline. Mouth shows his mucous membranes to be pink and moist. Lips and commissures without lesions. There is no thrush. Eyes show his pupils to be equal and reactive. Extraocular motions intact. Sclerae anicteric. Neurologic shows II-XII intact along with gross motor and gross sensation intact. Gait is not tested. Psychiatric shows him to be awake and alert, oriented times three with appropriate mood and affect and conversational. His white count today is 12.7, down from 13.5 yesterday. Hemoglobin and hematocrit are 13.8 and 41.3, unchanged from yesterday, with a platelet count of 209. Differential shows 87% neutrophils, 6% lymphocytes, 4% monocytes. There are no immature forms. No toxic granulations. His electrolytes are normal with a BUN and creatinine of 17 and 0.86, a glucose of 137 and a calcium of 8.1. His troponin is less than 0.02 and his CK-MB is 2.2 , all within normal limits. Beta-natriuretic peptide is les than 100; it is 66.1. EKG showed a right bundle branch block. There were no acute changes. His chest x-ray early this morning done portably today and this morning done PA and lateral shows possible infiltrate in the right side. I am interpreting that as volume overload and failure. There is no clinical indication that he has pneumonia. Costophrenic angles are sharp. Chest tubes are in good place. There is minimal subcutaneous emphysema. IMPRESSION: 1. Postoperative day #2 status post left upper lobectomy. 2. Squamous cell carcinoma left upper lobe, clinical stage 1 disease. Pathology pending. 3. Chronic obstructive pulmonary disease (COPD). 4. Bilateral parotid tumors. 5. Hypothyroidism. 6. Hypertension. 7. Rheumatoid arthritis. 8. Gastroesophageal reflux disease. 9. Depression. 10. Volume overload. Possible congestive heart failure. PLAN AND DISCUSSION: I diuresed him last night, and I will continue to do so today. I am pleased that he has turned around since early this morning. I have no clinical indication that he has pneumonia, and I am not going to start him on antibiotics. However, there is always a possibility of developing a right sided pneumonia as he was on his right side during surgery, and he did have copious amounts of secretions at surgery, which were cleared at preprocedure bronchoscopy. Further he is chronically immunosuppressed on methotrexate and prednisone for his rheumatoid arthritis. [facility]
[2016-09-30] VITALS (25 sets, daily range): BP systolic 123–175; BP diastolic 61–87; O2SAT 90
[2016-09-30] MEDS: LEVALBUTEROL 1.25 MG/0.5 ML CONCENTRATE NEB NEB SCH ×4 (01:32→19:55)
[2016-09-30] MEDS ORDERED: FUROSEMIDE 40 MG/4 ML VIAL (J1940) IV ONE (03:00)
[2016-09-30 05:46] LABS: BASO % 0.2 % (0.0-1.0); EOS # 0.1 K/mm3 (0.0-0.50); EOS % 0.8 % (0.0-3.0); LARGE UNSTAINED CELL # 0.1 K/mm3 (0.0-0.4); LARGE UNSTAINED CELL % 0.9 % (0.0-4.0); LYMPH # 0.8 K/mm3 (1.5-4.5); LYMPH % 5.6 % (24.0-44.0); MEAN CORPUSCULAR HEMOGLOBIN 34.6 pg (27.0-33.0); MEAN CORPUSCULAR HGB CONC 34.9 g/dl (32.0-36.5); MONO # 0.7 K/mm3 (0.0-0.8); MONO % 5.1 % (0.0-5.0); NEUTROPHILS # 11.9 K/mm3 (1.8-7.7); NEUTROPHILS % 87.3 % (36.0-66.0); PLATELET COUNT, AUTOMATED 231 k/mm3 (150-450); RED CELL DISTRIBUTION WIDTH 15.9 % (11.5-14.5); WHITE BLOOD COUNT 13.7 K/mm3 (4.0-10.0)
[2016-09-30 06:00] LABS: ABG HCO3 24.1 MEQ/L (22.0-26.0); ABG PARTIAL PRESSURE CO2 33.9 mmHg (35.0-45.0); ABG STANDARD HCO3 24.8 MEQ/L (22.0-26.0); ABG TOTAL CO2 25.2 MEQ/L (23.0-31.0)
[2016-09-30 06:02] LABS: ANION GAP 8 MEQ/L (8-16); BLOOD UREA NITROGEN 20 MG/DL (7-18); CALCIUM LEVEL 8.6 MG/DL (8.8-10.2); CARBON DIOXIDE LEVEL 27 MEQ/L (21-32); CHLORIDE LEVEL 104 MEQ/L (98-107); CREATININE FOR GFR 0.85 MG/DL (0.70-1.30); GLOMERULAR FILTRATION RATE > 60.0 (>42); GLUCOSE, FASTING 127 MG/DL (83-110); POTASSIUM SERUM 3.7 MEQ/L (3.5-5.1); SODIUM LEVEL 139 MEQ/L (136-145)
[2016-09-30 06:11] LABS: ABG PARTIAL PRESSURE O2 38.9 mmHg (75.0-100.0)
[2016-09-30] MEDS: KETOROLAC 30 MG/ML VIAL (J1885) IV SCH ×4 (06:36→23:04)
[2016-09-30] MEDS ORDERED: PIPERACILLIN/TAZOBACTAM SOD 3.375 GM in D5W MINI-BAG PLUS 50 ML IV SCH (07:00)
--- NOTE | 2016-09-30 07:12 | PHACANCOPD ---
PHARMACY VANCOMYCIN DOSING Pt Demographics Demographics Patient Age:76 , Weight:86.000 , Gender: male Adjusted Body Weight Date: 09/30/16, Adjusted Body Weight: [86] Kg Events Past 24 Hours Events Past 24 Hours: YES: Other Vancomycin Vancomycin indication: SEPSIS Vancomycin Target Ranges: 10-20 mcg/ml Vancomycin Load Y/N: Yes Load Dose Date Time Vancomycin Load Dose: 1.75G Date: 09/30/16 Time: 09:00 Vancomycin Dose Date: 09/30/16. Current Vancomycin Dose: [1G IV Q12H ] Intermittent Dosing?: No Labs Labs Item Value Date Time White Blood Count 13.4 K/mm3 H 09/27/16 1245 White Blood Count 13.5 K/mm3 H 09/28/16 0441 White Blood Count 12.7 K/mm3 H 09/29/16 0325 White Blood Count 13.7 K/mm3 H 09/30/16 0510 Creatinine 0.86 MG/DL 09/29/16 0325 Creatinine 0.85 MG/DL 09/30/16 0510 Creatinine Clearance Date:09/30/16. Creatinine Clearance: [66ML/MIN.]. Assessment and Plan Maintaining Current Dose?: Yes Reason for dose change: No Dose Change Pharmacist Note Pharmacist Note Date: 09/30/16. Pharmacist note: Pt is a 76 year old male being treated for sepsis goal trough 10-20mcg/ml. Pt does not have a history of vancomycin therapy her at [facility]. To achieve goal a 1.75g loading dose was started at 09:00 maintenance will consist of 1g iv q12h starting at 21:00. We will continue to monitor and adjust dose as needed. [facility] Sep 30, 2016 07:12
[2016-09-30 07:16] LABS: ABG BASE EXCESS -1.5 (-2.0-2.0); ABG HCO3 21.6 MEQ/L (22.0-26.0); ABG PARTIAL PRESSURE O2 80.3 mmHg (75.0-100.0); ABG STANDARD HCO3 23.2 MEQ/L (22.0-26.0); ABG TOTAL CO2 22.6 MEQ/L (23.0-31.0); ABG pH (ARTERIAL) 7.447 UNITS (7.350-7.450)
[2016-09-30] MEDS ORDERED: SODIUM CHLORIDE HYPERTONIC 3% 15ML NEB SOL INH ONE (08:00)
[2016-09-30] MEDS: PIPERACILLIN/TAZOBACTAM SOD 3.375 GM in D5W MINI-BAG PLUS 50 ML IV SCH ×3 (08:23→19:48)
[2016-09-30] MEDS: FUROSEMIDE 80 MG TAB PO SCH (09:00)
--- NOTE | 2016-09-30 09:05 | REP ---
PORTABLE CHEST: AP portable view of the chest is performed and compared to a prior study of 09/29/2016. Right lung infiltrate is essentially unchanged. There is again elevation of the left hemidiaphragm. Two left chest tubes remain in place. I do not see a pneumothorax. Cardiomediastinal silhouette appears magnified. IMPRESSION: Essentially stable exam. Signed by Bryan Knutson MD 09/30/2016 08:16 P
[2016-09-30] MEDS: PANTOPRAZOLE 40MG TAB (PROTONIX) PO SCH (09:54)
[2016-09-30] MEDS: MOM 30ML SUSPENSION UDC PO SCH (09:54)
[2016-09-30] MEDS: predniSONE 1 MG TAB PO SCH ×2 (09:55→21:18)
[2016-09-30] MEDS: SERTRALINE HCL 50 MG TAB PO SCH (09:55)
[2016-09-30] MEDS: NIFEdipine 60 MG XL TAB PO SCH ×2 (09:55→21:18)
[2016-09-30] MEDS: CO-ENZYME Q10 50 MG CAP PO SCH (09:56)
[2016-09-30] MEDS: CYANOCOBALAMIN 500 MCG TAB PO SCH (09:56)
[2016-09-30] MEDS: HEPARIN SOD (PORCINE) 5000 UNITS/ML VIAL SC SCH ×2 (09:56→21:18)
[2016-09-30] MEDS: CALCIUM/VITAMIN D 500 MG TAB PO SCH ×2 (09:57→21:19)
[2016-09-30] MEDS: FOLIC ACID 1 MG TAB PO SCH (09:57)
[2016-09-30] MEDS: DOCUSATE SODIUM 100 MG CAP PO SCH ×2 (09:57→21:00)
[2016-09-30] MEDS: LISINOPRIL 20 MG TAB PO SCH (09:57)
[2016-09-30] MEDS: LEVOTHYROXINE 100MCG TABLET (0.1MG) PO SCH (09:57)
[2016-09-30] MEDS: VANCOMYCIN HCL 1,000 MG, VIAL MATE ADAPTER 1 EACH in D5W 250 ML IV SCH ×2 (09:57→21:19)
[2016-09-30] MEDS ORDERED: VANCOMYCIN HCL 1,000 MG, VIAL MATE ADAPTER 1 EACH in D5W 250 ML IV ONE (10:00)
[2016-09-30] MEDS ORDERED: VANCOMYCIN HCL 750 MG, VIAL MATE ADAPTER 1 EACH in D5W 250 ML IV ONE (10:00)
[2016-09-30] MEDS: FENTANYL/BUPIVACAINE/NACL BAG 250 ML EPIDURAL SCH (11:30)
--- NOTE | 2016-09-30 13:36 | IPN ---
DATE OF SERVICE: 09/30/2016 This is now the third postoperative day for Mr. Howard. He again had a difficult night last night with increasing oxygen requirements. Early this morning, I was called, and a blood gas showed him to have a pO2 of 38. He was, therefore, transferred to the intensive care unit. Yesterday, I was figuring that this was secondary to volume overload. However, it looks more like now a postoperative pneumonia. His vital signs show a maximum temperature (T max) of 99.1 with a heart rate that ranges between 102 and 87 in a sinus rhythm, with a respiratory rate of 18-23, now with the use of neck accessory muscles. He is 94% saturated on bilateral positive airway pressure (BiPAP) of 70%. Prior to that, he was on nonrebreather with saturations down to 70%. His blood pressure is ranging between 138/63 to 133/67. His intake and output over the past 24 hours has been recorded as 1230 in and 3570 out for a negativity of 2300 mL. I did give him a dose of Lasix around 11 o'clock last night. He has put out 470 mL from the chest tube, and there is no air leak today. Weight is pending. He has taken in 1230 mL in by mouth intake. On physical examination, he has bilateral crackles on both sides, now with the right greater than the left. These do not clear with coughing. Percussion notes are full to the diaphragm. Cardiac examination is without murmurs, clicks, gallops, or rubs. I cannot feel his point of maximum impulse (PMI). S1 and S2 are normal. Abdomen is soft and nontender but tympanitic and distended. He did have a bowel movement in the form of diarrhea yesterday. There is no costovertebral angle (CVA) tenderness. Extremities show no pretibial edema. No calf tenderness. No differential swelling of the upper extremities. Skin is warm, dry, and perfused without cyanosis or mottling, including that of the nail beds and the knees. Neck is supple. There is no jugular venous distention, no subcutaneous emphysema. Trachea is midline. Mouth shows his mucous membranes to be pink and moist. Lips and commissures without lesions. There is no thrush. Eyes show his pupils to be equal and reactive. Extraocular motions intact. Sclerae anicteric. Neurologic shows II-XII intact, along with gross motor and gross sensation intact. Gait is not tested. Psychiatric shows him to be awake and alert, oriented times three, with appropriate mood and affect and conversational. His white count is 13.7 slightly up from 12.7 yesterday. Hemoglobin and hematocrit are 14.3 and 41.0 unchanged from yesterday, with a platelet count of 231 and stable. The differential shows 87% neutrophils, 5% lymphocytes, 5% monocytes. There are no immature forms. No toxic granulations. His electrolytes are normal today with a BUN and creatinine of 20 and 0.85, a glucose of 127, and a calcium of 8.6. As noted yesterday, all of his troponins and CK-MBs were negative. His blood gas this morning prior to institution of continuous positive airway pressure (CPAP) showed a pH of 7.47, PCO2 of 33, a pO2 of 39, with a base excess of 1.0. After the institution of CPAP, his pO2 freeman to 80. His chest x-ray shows his lung fully expanded to the chest. Costophrenic angles are clear. He has the right midlung field infiltrate, which is suspect is now patient intake representative of a pneumonia rather than cardiogenic edema. IMPRESSION: 1. Postoperative day #3, status post left upper lobectomy. 2. Squamous cell carcinoma, left upper lobe, clinical stage I disease. Pathology pending. 3. Chronic obstructive pulmonary disease (COPD). 4. Bilateral parotid tumors. 5. Hypothyroidism. 6. Hypertension. 7. Rheumatoid arthritis. 8. Gastroesophageal reflux disease. 9. Depression. 10. Probable postoperative pneumonia. 11. Hypoxia. PLAN AND DISCUSSION: I have already transferred him to the intensive care unit (ICU) and instituted CPAP at 8 cm of water. I have asked Dr. Ayoub to see him of pulmonary. Dr. Ayoub is familiar with him, as he is his original pulmonary doctor. I will not diurese him today, as he is now net negative of nearly 1000 mL. I will start him on vancomycin and Zosyn after obtaining a sputum culture. We will have to support him throughout this acute period of his pneumonic process.
[2016-09-30] MEDS: ACETAMINOPHEN 500 MG TAB PO PRN (23:47)
[2016-10-01] VITALS (22 sets, daily range): BP systolic 119–164; BP diastolic 58–83; O2SAT 94
[2016-10-01] MEDS: LEVALBUTEROL 1.25 MG/0.5 ML CONCENTRATE NEB NEB SCH ×4 (01:26→19:31)
[2016-10-01] MEDS: PIPERACILLIN/TAZOBACTAM SOD 3.375 GM in D5W MINI-BAG PLUS 50 ML IV SCH ×4 (01:57→19:59)
[2016-10-01 05:07] LABS: BASO % 0.2 % (0.0-1.0); EOS # 0.3 K/mm3 (0.0-0.50); LARGE UNSTAINED CELL # 0.1 K/mm3 (0.0-0.4); LARGE UNSTAINED CELL % 0.7 % (0.0-4.0); LYMPH # 0.6 K/mm3 (1.5-4.5); LYMPH % 3.2 % (24.0-44.0); MEAN CORPUSCULAR HEMOGLOBIN 34.2 pg (27.0-33.0); MEAN CORPUSCULAR HGB CONC 33.9 g/dl (32.0-36.5); MEAN CORPUSCULAR VOLUME 100.7 fl (80.0-96.0); MONO # 0.7 K/mm3 (0.0-0.8); MONO % 5.2 % (0.0-5.0); NEUTROPHILS # 12.6 K/mm3 (1.8-7.7); NEUTROPHILS % 88.7 % (36.0-66.0); PLATELET COUNT, AUTOMATED 267 k/mm3 (150-450); RED CELL DISTRIBUTION WIDTH 16.4 % (11.5-14.5); WHITE BLOOD COUNT 14.2 K/mm3 (4.0-10.0)
[2016-10-01] MEDS: KETOROLAC 30 MG/ML VIAL (J1885) IV SCH ×4 (05:21→23:04)
[2016-10-01 05:27] LABS: ANION GAP 10 MEQ/L (8-16); BLOOD UREA NITROGEN 24 MG/DL (7-18); CALCIUM LEVEL 9.2 MG/DL (8.8-10.2); CARBON DIOXIDE LEVEL 25 MEQ/L (21-32); CHLORIDE LEVEL 101 MEQ/L (98-107); CREATININE FOR GFR 0.97 MG/DL (0.70-1.30); GLOMERULAR FILTRATION RATE > 60.0 (>42); GLUCOSE, FASTING 149 MG/DL (83-110); POTASSIUM SERUM 3.9 MEQ/L (3.5-5.1); SODIUM LEVEL 136 MEQ/L (136-145)
[2016-10-01 06:00] LABS: ABG BASE EXCESS -0.1 (-2.0-2.0); ABG STANDARD HCO3 24.4 MEQ/L (22.0-26.0)
[2016-10-01 06:01] LABS: ABG HCO3 23.6 MEQ/L (22.0-26.0); ABG PARTIAL PRESSURE CO2 35.7 mmHg (35.0-45.0); ABG PARTIAL PRESSURE O2 84.9 mmHg (75.0-100.0); ABG TOTAL CO2 24.7 MEQ/L (23.0-31.0); ABG pH (ARTERIAL) 7.438 UNITS (7.350-7.450)
--- NOTE | 2016-10-01 08:36 | REP ---
Portable chest, 10/01/2016, 07:49 a.m., single AP view the patient semi upright: Comparison is 09/30/2016. Right lung infiltrate is unchanged. The two left chest tubes are unchanged. There is no pneumothorax or pleural fluid collection. Epidural catheter is again identified. The cardiomediastinal silhouette is unchanged. Impression: No interval change. Signed by Bryan Stock MD 10/01/2016 08:28 A
[2016-10-01] MEDS: MOM 30ML SUSPENSION UDC PO SCH (09:00)
[2016-10-01] MEDS: HEPARIN SOD (PORCINE) 5000 UNITS/ML VIAL SC SCH ×2 (09:11→21:06)
[2016-10-01] MEDS: VANCOMYCIN HCL 1,000 MG, VIAL MATE ADAPTER 1 EACH in D5W 250 ML IV SCH ×2 (09:11→21:04)
[2016-10-01] MEDS: CALCIUM/VITAMIN D 500 MG TAB PO SCH (09:12)
[2016-10-01] MEDS: DOCUSATE SODIUM 100 MG CAP PO SCH ×2 (09:12→21:06)
[2016-10-01] MEDS: CYANOCOBALAMIN 500 MCG TAB PO SCH (09:12)
[2016-10-01] MEDS: LEVOTHYROXINE 100MCG TABLET (0.1MG) PO SCH (09:13)
[2016-10-01] MEDS: FOLIC ACID 1 MG TAB PO SCH (09:13)
[2016-10-01] MEDS: CO-ENZYME Q10 50 MG CAP PO SCH (09:13)
[2016-10-01] MEDS: LISINOPRIL 20 MG TAB PO SCH (09:14)
[2016-10-01] MEDS: predniSONE 1 MG TAB PO SCH ×2 (09:27→21:06)
[2016-10-01] MEDS: NIFEdipine 60 MG XL TAB PO SCH ×2 (09:28→21:06)
[2016-10-01] MEDS: SERTRALINE HCL 50 MG TAB PO SCH (09:28)
[2016-10-01] MEDS: PANTOPRAZOLE 40MG TAB (PROTONIX) PO SCH (09:28)
[2016-10-01] MEDS: FENTANYL/BUPIVACAINE/NACL BAG 250 ML EPIDURAL SCH (12:55)
--- NOTE | 2016-10-01 13:34 | IPN ---
DATE OF SERVICE: 10/01/2016 This is now the fourth postoperative day for Mr. Howard. Today, he is in the intensive care unit (ICU), and he is looking better. His oxygen requirement has come down from 80% to 60%. He is still on continuous positive airway pressure (CPAP). His chest x-ray is better, as discussed below. His pain is being well controlled with the epidural. His vital signs show a maximum temperature (T max) of 100.7 last night at 12 a.m. He is now 97.1. Heart rate ranges between 95 and 97 in a sinus rhythm, with a respiratory rate of 18-20 without the use of accessory muscles, who is on 60% to 65% FiO2 on CPAP of 8 who is 94% saturated. His blood pressure is ranging between 149/70 to 164/77. His intake and output over the past 24 hours has been recorded as 1384 in and 2060 out for a negativity of 676 mL. He has put out 150 mL from the chest tube and 1910 mL in urine. His weight is 85.1 kg today compared to 86.8 kg yesterday. On physical examination, he has crackles through inspiration on both sides. He also has expiratory crackles. I do not hear any wheezing today. Percussion notes are full to the diaphragm. Cardiac examination is without murmurs, clicks, gallops, or rubs. I cannot feel his point of maximum impulse (PMI). S1 and S2 are normal. Abdomen is soft and nontender, but he is distended and tympanitic. There is no hepatomegaly. Extremities show no pretibial edema. No calf tenderness. No differential swelling of the upper extremities. Skin is warm, dry, and perfused without cyanosis or mottling, including that of the nail beds and the knees. Neck is supple. There is no jugular venous distention, no subcutaneous emphysema. Trachea is midline. Mouth shows his mucous membranes to be pink and moist. Eyes show his pupils to be equal and reactive. Extraocular motions are intact. Sclerae anicteric. Neurologic shows II-XII intact, along with gross motor and gross sensation intact. Gait is not tested. Psychiatric shows him to be awake and alert, oriented times three, with appropriate mood and affect and conversational. His white count today is 14.2 with hemoglobin and hematocrit of 15.5 and 45.6. Platelet count is 267 and stable. The differential shows 88% neutrophils, 3% lymphocytes, 5% monocytes. There are no immature forms. No toxic granulations. His white count had increased from 13.7 yesterday. His electrolytes are normal with a BUN and creatinine of 24 and 0.97, with a glucose of 149, and a calcium of 9.2. His chest x-ray is improved today. I can now clearly see his left costophrenic angle. There is a considerable amount of increased aeration in the left lower hemithorax. Lung is fully expanded to the chest wall. There is still an impressive infiltrate in the right lower lobe. The x-ray is done portably, as he does not tolerate being off CPAP for more than 15 minutes. Chest tubes are in good place. MICROBIOLOGY: A gram stain shows moderate gram-positive cocci in pairs and chains and a few gram-positive rods. No cultures have grown yet or are reported. IMPRESSION: 1. Postoperative day #4, status post left upper lobectomy, with final staging of T1B and 0M0 or stage IA, with maximum tumor dimension of 2.2 cm. All lymph nodes, including atrial parenchymal, hilar, and mediastinal nodes negative. 2. Chronic obstructive pulmonary disease (COPD). 3. Bilateral parotid tumors. 4. Hypothyroidism. 5. Hypertension. 6. Rheumatoid arthritis. 7. Gastroesophageal reflux disease (GERD). 8. Depression. 9. Postoperative pneumonia. 10. Hypoxia. PLAN AND DISCUSSION: I will discontinue his chest tube suction today. He remains on antibiotics. Will keep them broad-spectrum until he grows the microbiology and narrow accordingly. I am gratified that his oxygen requirement has decreased, although he still needs the CPAP pressure. I have the nurses to put him on a VentiMask for meals so that he can take in some by mouth intake.
[2016-10-01] MEDS: ONDANSETRON 4MG/2ML VIAL (J2405) IV PRN (16:24)
[2016-10-01] MEDS: METOCLOPRAMIDE INJ 10MG/2ML VIAL (J2765) IV SCH (17:55)
[2016-10-02] VITALS (23 sets, daily range): BP systolic 102–160; BP diastolic 54–76
[2016-10-02] MEDS: CALCIUM/VITAMIN D 500 MG TAB PO SCH ×3 (00:16→21:00)
[2016-10-02] MEDS: METOCLOPRAMIDE INJ 10MG/2ML VIAL (J2765) IV SCH ×4 (00:17→17:47)
[2016-10-02] MEDS: LEVALBUTEROL 1.25 MG/0.5 ML CONCENTRATE NEB NEB SCH ×4 (01:21→19:49)
[2016-10-02] MEDS: PIPERACILLIN/TAZOBACTAM SOD 3.375 GM in D5W MINI-BAG PLUS 50 ML IV SCH ×4 (02:30→21:23)
[2016-10-02] MEDS: ONDANSETRON 4MG/2ML VIAL (J2405) IV PRN (03:18)
[2016-10-02 04:55] LABS: BASO % 0.1 % (0.0-1.0); EOS % 0.3 % (0.0-3.0); LARGE UNSTAINED CELL # 0.1 K/mm3 (0.0-0.4); LARGE UNSTAINED CELL % 0.9 % (0.0-4.0); LYMPH # 0.5 K/mm3 (1.5-4.5); LYMPH % 2.9 % (24.0-44.0); MEAN CORPUSCULAR HEMOGLOBIN 34.3 pg (27.0-33.0); MEAN CORPUSCULAR HGB CONC 33.5 g/dl (32.0-36.5); MEAN CORPUSCULAR VOLUME 102.5 fl (80.0-96.0); MONO # 0.9 K/mm3 (0.0-0.8); MONO % 5.7 % (0.0-5.0); NEUTROPHILS # 14.5 K/mm3 (1.8-7.7); NEUTROPHILS % 90.1 % (36.0-66.0); PLATELET COUNT, AUTOMATED 338 k/mm3 (150-450); RED CELL DISTRIBUTION WIDTH 15.7 % (11.5-14.5); WHITE BLOOD COUNT 16.1 K/mm3 (4.0-10.0)
[2016-10-02 05:10] LABS: CALCIUM LEVEL 9.5 MG/DL (8.8-10.2); CREATININE FOR GFR 2.92 MG/DL (0.70-1.30); GLOMERULAR FILTRATION RATE 22.5 (>42); POTASSIUM SERUM 4.2 MEQ/L (3.5-5.1)
[2016-10-02] MEDS: KETOROLAC 30 MG/ML VIAL (J1885) IV SCH (06:07)
--- NOTE | 2016-10-02 08:48 | REP ---
Portable chest, AP view, the patient semi upright, 10/02/2016, 07:06 a.m.: Comparison is a 10/01/2016. The right lung infiltrate is unchanged. There are two left chest tubes, unchanged. No pneumothorax. There is small volume of subcutaneous emphysema along the left lateral chest wall. Cardiac size appears enlarged, unchanged, however there has magnification from portable positioning. Epidural catheter is again identified. There is a nasogastric tube, not present previously, terminating satisfactorily in the abdominal left upper quadrant. Impression: Interval placement of a nasogastric tube. Otherwise, no interval change. Signed by Bryan Stock MD 10/02/2016 08:39 A
[2016-10-02] MEDS: HEPARIN SOD (PORCINE) 5000 UNITS/ML VIAL SC SCH (08:58)
[2016-10-02] MEDS: predniSONE 1 MG TAB PO SCH ×2 (08:59→21:00)
[2016-10-02] MEDS: CO-ENZYME Q10 50 MG CAP PO SCH (08:59)
[2016-10-02] MEDS: FOLIC ACID 1 MG TAB PO SCH (09:00)
[2016-10-02] MEDS: MOM 30ML SUSPENSION UDC PO SCH (09:00)
[2016-10-02] MEDS: NIFEdipine 60 MG XL TAB PO SCH ×2 (09:00→21:00)
[2016-10-02] MEDS ORDERED: D5W/0.9% SODIUM CHLORIDE 1,000 ML IV ONE ×2 (09:00→19:15)
[2016-10-02] MEDS: PANTOPRAZOLE 40MG TAB (PROTONIX) PO SCH (09:00)
[2016-10-02] MEDS: LEVOTHYROXINE 100MCG TABLET (0.1MG) PO SCH (09:00)
[2016-10-02] MEDS: SERTRALINE HCL 50 MG TAB PO SCH (09:00)
[2016-10-02] MEDS: CYANOCOBALAMIN 500 MCG TAB PO SCH (09:00)
[2016-10-02] MEDS: DOCUSATE SODIUM 100 MG CAP PO SCH ×2 (09:01→21:00)
[2016-10-02 10:28] LABS: ABG BASE EXCESS -2.9 (-2.0-2.0); ABG HCO3 20.8 MEQ/L (22.0-26.0); ABG PARTIAL PRESSURE CO2 33.2 mmHg (35.0-45.0); ABG PARTIAL PRESSURE O2 54.5 mmHg (75.0-100.0); ABG STANDARD HCO3 21.8 MEQ/L (22.0-26.0); ABG TOTAL CO2 21.8 MEQ/L (23.0-31.0); ABG pH (ARTERIAL) 7.414 UNITS (7.350-7.450)
--- NOTE | 2016-10-02 11:31 | REP ---
PORTABLE CHEST: AP portable view of the chest is performed and compared to a prior study of 10/02/2016. There is placement of a left subclavian central venous catheter. The tip is in the superior vena cava. There is no pneumothorax. There are two left chest tubes again noted. Bilateral lung infiltrates appear stable. Nasogastric tube is seen traversing into the stomach. IMPRESSION: Placement of a left subclavian central venous catheter with the tip in the superior vena cava. No other definite new findings. Signed by Bryan Knutson MD 10/03/2016 05:08 P
[2016-10-02] MEDS: FENTANYL/BUPIVACAINE/NACL BAG 250 ML EPIDURAL SCH (13:03)
[2016-10-02 13:48] LABS: ALBUMIN 2.4 GM/DL (3.2-5.2); ALBUMIN/GLOBULIN RATIO 0.63 (1.00-1.93); BILIRUBIN,TOTAL 0.6 MG/DL (0.2-1.0); CALCIUM LEVEL 8.8 MG/DL (8.8-10.2); CREATININE FOR GFR 3.45 MG/DL (0.70-1.30); GLOMERULAR FILTRATION RATE 18.6 (>42); MAGNESIUM LEVEL 3.4 MG/DL (1.8-2.4); PHOSPHORUS LEVEL 6.4 MG/DL (2.5-4.9); POTASSIUM SERUM 3.9 MEQ/L (3.5-5.1); TOTAL PROTEIN 6.2 GM/DL (6.4-8.2)
[2016-10-02] MEDS ORDERED: D5W/0.9% SODIUM CHLORIDE 500 ML IV ONE (15:00)
[2016-10-02] MEDS: HumaLOG INSULIN (NovoLOG) PER UNIT SC SCH (17:48)
[2016-10-02] MEDS ORDERED: [UNRECOGNIZED DRUG - OTHER] IV SCH ×8 (18:00)
[2016-10-02] MEDS ORDERED: FAT EMULSION IV 20% 500 ML IV SCH (18:00)
[2016-10-02] MEDS ORDERED: SODIUM ACETATE IV SCH ×8 (18:00)
[2016-10-02] MEDS ORDERED: SODIUM CHLORIDE IV SCH ×8 (18:00)
[2016-10-02 21:35] LABS: ABG BASE EXCESS -4.8 (-2.0-2.0); ABG HCO3 19.8 MEQ/L (22.0-26.0); ABG PARTIAL PRESSURE CO2 35.1 mmHg (35.0-45.0); ABG STANDARD HCO3 20.5 MEQ/L (22.0-26.0); ABG TOTAL CO2 20.9 MEQ/L (23.0-31.0); ABG pH (ARTERIAL) 7.369 UNITS (7.350-7.450)
[2016-10-02] MEDS ORDERED: D5W/0.9% SODIUM CHLORIDE 1,000 ML IV SCH (21:45)
[2016-10-02] MEDS ORDERED: HALOPERIDOL 5 MG/ML VIAL (J1630) As Ordered ONE (22:17)
[2016-10-02] MEDS ORDERED: HALOPERIDOL 5 MG/ML VIAL (J1630) IV ONE (22:30)
[2016-10-02 22:32] LABS: CREATININE FOR GFR 3.73 MG/DL (0.70-1.30); POTASSIUM SERUM 3.2 MEQ/L (3.5-5.1)
[2016-10-02] MEDS: KCL 20MEQ IN D5/NS 1000ML 1,000 ML IV SCH (22:49)
[2016-10-02] MEDS ORDERED: HALOPERIDOL 5 MG/ML VIAL (J1630) IV PRN (23:00)
[2016-10-03] VITALS (32 sets, daily range): BP systolic 122–185; BP diastolic 51–81
[2016-10-03] MEDS: HEPARIN SOD (PORCINE) 5000 UNITS/ML VIAL SC SCH ×3 (00:31→20:43)
[2016-10-03] MEDS: HumaLOG INSULIN (NovoLOG) PER UNIT SC SCH ×4 (00:32→18:23)
[2016-10-03] MEDS: METOCLOPRAMIDE INJ 10MG/2ML VIAL (J2765) IV SCH ×4 (00:32→18:23)
[2016-10-03] MEDS: LEVALBUTEROL 1.25 MG/0.5 ML CONCENTRATE NEB NEB SCH ×4 (01:21→19:29)
[2016-10-03] MEDS: PIPERACILLIN/TAZOBACTAM SOD 3.375 GM in D5W MINI-BAG PLUS 50 ML IV SCH ×4 (03:01→20:41)
[2016-10-03 05:12] LABS: BASO % 0.2 % (0.0-1.0); EOS # 0.3 K/mm3 (0.0-0.50); EOS % 3.1 % (0.0-3.0); LARGE UNSTAINED CELL # 0.1 K/mm3 (0.0-0.4); LARGE UNSTAINED CELL % 1.1 % (0.0-4.0); LYMPH # 0.5 K/mm3 (1.5-4.5); LYMPH % 4.2 % (24.0-44.0); MEAN CORPUSCULAR HEMOGLOBIN 34.1 pg (27.0-33.0); MEAN CORPUSCULAR HGB CONC 33.9 g/dl (32.0-36.5); MEAN CORPUSCULAR VOLUME 100.7 fl (80.0-96.0); MONO # 0.6 K/mm3 (0.0-0.8); MONO % 6.8 % (0.0-5.0); NEUTROPHILS # 7.6 K/mm3 (1.8-7.7); NEUTROPHILS % 84.7 % (36.0-66.0); PLATELET COUNT, AUTOMATED 244 k/mm3 (150-450); RED CELL DISTRIBUTION WIDTH 16.4 % (11.5-14.5); WHITE BLOOD COUNT 8.9 K/mm3 (4.0-10.0)
[2016-10-03 05:40] LABS: ALBUMIN/GLOBULIN RATIO 0.57 (1.00-1.93); BILIRUBIN,TOTAL 0.4 MG/DL (0.2-1.0); CALCIUM LEVEL 7.9 MG/DL (8.8-10.2); CREATININE FOR GFR 3.56 MG/DL (0.70-1.30); GLOMERULAR FILTRATION RATE 17.9 (>42); MAGNESIUM LEVEL 2.7 MG/DL (1.8-2.4); POTASSIUM SERUM 3.6 MEQ/L (3.5-5.1); TOTAL PROTEIN 5.5 GM/DL (6.4-8.2)
--- NOTE | 2016-10-03 05:47 | IPN ---
DATE: 10/02/2016 This is now the 5th postoperative day for Mr. Howard. He is still requiring both continuous positive airway pressure (CPAP) and 100% rebreather. Early this morning, he vomited and CPAP was removed. His abdomen yesterday was noted to be distended and tympanitic, and it was my thought that this was secondary to aerophagia secondary to the CPAP. I therefore changed him over to 100% nonrebreather earlier today. As noted below, his renal function has markedly deteriorated. He is awake and alert, and able to respond appropriately to my questions. His vital signs show a maximum temperature (Tmax) of 98.0, with a heart rate that is ranging between 95-88 in a sinus rhythm, with a respiratory rate of 20 without the use of accessory muscles on CPAP or high flow mask. Blood pressure is ranging between 112/63 to 102/55. He is 97-94% saturated on the above CPAP or oxygen settings. His FiO2 is varying between 60-55% on the CPAP. His intake and output over the past 24 hours has been recorded as 918 in and 510 out. Since this morning however, he has put out 1500 mL from his nasogastric (NG) tube. He has only put 50 mL out the chest tube. His urine output has been 460 mL. There is no air leak. On physical examination, he has bilateral crackles throughout all of inspiration and expiration. Percussion note is full to the diaphragm. Cardiac exam is without murmurs, clicks, gallops, or rubs. I cannot feel his point of maximum impulse (PMI). S1 and S2 are normal. Abdomen is soft and nontender, but quiet. It is tympanitic and distended. It is less so than yesterday after the NG tube has been placed. Extremities show no pretibial edema, no calf tenderness. No differential swelling of the upper extremities. Skin is warm, dry and perfused without cyanosis or mottling, including that of the nail beds and the knees. Neck is supple. There is no jugular venous distention, no subcutaneous emphysema. Trachea is midline. Mouth shows his mucous membranes to be pink and moist. Lips and commissures without lesions. Eyes show his pupils to be equal and reactive. Extraocular motions are intact. Sclerae anicteric. Neuro shows II-XII intact, along with gross motor and gross sensation intact. Gait is not tested. Psychiatric shows him to be awake and alert. His white count today is 16.1 with hemoglobin and hematocrit of 15.3 and 45.5, unchanged from yesterday, with a platelet count of 338. Differential shows 90% neutrophils, 3% lymphocytes and 5% monocytes. There are no immature forms. No toxic granulations. His electrolytes are essentially normal but with a BUN and creatinine of 59 and 2.92. Later this afternoon, his BUN and creatinine freeman to 69 and 3.45. I have already given him two boluses of 500 mL of normal saline. His phosphorus is 6.4 with a magnesium of 3.4 and a bilirubin of 0.6. Albumin is 2.4 with a calcium of 8.8. He is growing Enterobacter cloacae complex, which is sensitive to everything except cefazolin. I am therefore going to discontinue the vancomycin and continue on the Zosyn. His chest x-ray shows continued right lower lobe infiltrate. It looks to be getting worse. It is done AP portable. I note that his medication list include lisinopril, Lasix and of course the vancomycin, and I will discontinue those. He is also on prednisone and he was preoperatively on methotrexate. He is immunosuppressed. See discussion below. IMPRESSION: 1. Postoperative day #5 status post left upper lobectomy. 2. Squamous cell carcinoma left upper lobe stage IA, [id number]. 3. Chronic obstructive pulmonary disease (COPD). 4. Bilateral parotid tumors. 5. Hypothyroidism. 6. Hypertension. 7. Rheumatoid arthritis. 8. Gastroesophageal reflux disease. 9. Depression. 10. Postoperative pneumonia. 11. Hypoxia. 12. Postoperative ileus. 13. Preoperative immunosuppression secondary to arthritis and inflammatory medications. PLAN AND DISCUSSION: It now occurs to me that his pneumonia, which presents early on, is secondary to his prior immunosuppression. He is growing Enterobacter cloacae complex. This is sensitive to everything except Ancef, and I will continue him the Zosyn and discontinue the vancomycin. I think that he is dehydrated secondary to his ileus and I will give him boluses of normal saline. I also think that at this point in time being his 5th postoperative da that he is going to become malnourished and I will start him on hyperalimentation. I have a sinking feeling that he is going to need to be ventilated to get this pneumonia. I am going to have to give him enough fluid, which will probably end up in his lungs requiring intubation at some point and time. He now has double system disease with renal failure and pneumonia. As he was preoperatively immunosuppressed, this is going to prove to be difficult. ERICA
--- NOTE | 2016-10-03 07:48 | REP ---
There are however, g[place] portable abdomen single AP view, the patient supine: There are no comparison. There is bowel distension, predominantly small bowel. This is nonspecific and could be ileus or small bowel obstruction. Nasogastric tube is identified terminating satisfactorily in the abdominal left upper quadrant were Impression: Small bowel distension, ileus versus obstruction. Signed by Bryan Stock MD 10/03/2016 07:39 A
[2016-10-03] MEDS: MOM 30ML SUSPENSION UDC PO SCH (09:00)
[2016-10-03] MEDS: CYANOCOBALAMIN 500 MCG TAB PO SCH (10:02)
[2016-10-03] MEDS: PANTOPRAZOLE 40MG TAB (PROTONIX) PO SCH (10:02)
[2016-10-03] MEDS: LEVOTHYROXINE 100MCG TABLET (0.1MG) PO SCH (10:03)
[2016-10-03] MEDS: CO-ENZYME Q10 50 MG CAP PO SCH (10:03)
[2016-10-03] MEDS: CALCIUM/VITAMIN D 500 MG TAB PO SCH ×2 (10:03→20:44)
[2016-10-03] MEDS: SERTRALINE HCL 50 MG TAB PO SCH (10:03)
[2016-10-03] MEDS: FOLIC ACID 1 MG TAB PO SCH (10:04)
[2016-10-03] MEDS: predniSONE 1 MG TAB PO SCH ×2 (10:04→20:45)
[2016-10-03] MEDS: NIFEdipine 60 MG XL TAB PO SCH ×2 (10:04→20:44)
[2016-10-03] MEDS: DOCUSATE SODIUM 100 MG CAP PO SCH ×2 (10:39→20:44)
--- NOTE | 2016-10-03 10:54 | REP ---
Portable chest, 10/03/2016, 02/05 AM, single AP view: Comparison is 2016. There is a large right lung infiltrate, not significantly changed. The left lung appears relatively clear. The two left chest tubes are unchanged from the left subclavian central venous catheter is unchanged. The nasogastric tube is unchanged. A tiny volume of subcutaneous emphysema is noted along the left lateral chest wall, not significantly changed. There is no pneumothorax. Impression: No significant interval change. Signed by Bryan Stock MD 10/03/2016 10:45 A
[2016-10-03] MEDS: KCL 20MEQ IN D5/NS 1000ML 1,000 ML IV SCH (12:02)
--- NOTE | 2016-10-03 12:14 | IPN ---
DATE: 10/03/2016 Things look a bit better this morning for Mr. Howard than they did yesterday. I was called in last night around 10 o'clock to evaluate mental status changes. He became confused and combative. His creatinine has gone up even more, therefore started even more aggressive fluid replacement therapy. Today, he looks to be doing well. His creatinine has stabilized. He is arousable and can follow commands. His vital signs show a maximum temperature (Tmax) of 99.2, with a heart rate that is ranging between 93-103 in a sinus rhythm, with a respiratory rate of 15-22 without the use of accessory muscles who is 91% saturated on a 61% Ventimask and high flow cannula. on CPAP or high flow mask. His blood pressure is ranging between 122/51 to 146/67. Intake and output over the past 24 hours has been recorded as 3106 in and 2947 out for a positivity of 159 mL. He put out 80 mL from the chest tube and there is no air leak. He weighs 85.5 kg today compared to 83.5 kg yesterday. He has put out a total dr8861 mL from a nasogastric (NG) tube. He is presently on hyperalimentation and a total of fluid input of 150 mL/hr in addition to three normal saline boluses at 500 mL yesterday. On physical examination, he has bilateral crackles during inspiration and expiration. The crackles are coarse and rhonchus. Percussion note is full to the diaphragm. Cardiac exam is without murmurs, clicks, gallops, or rubs. I cannot feel his point of maximum impulse (PMI). S1 and S2 are normal. Abdomen is soft and much less distended and tympanitic. He does have some bowel sounds. They are quite hypoactive but present. There is no costovertebral angle (CVA) tenderness, no hepatomegaly. Extremities show no pretibial edema and no calf tenderness. No differential swelling of the upper extremities. Skin is warm, dry and perfused without cyanosis or mottling, including that of the nail beds and the knees. Neck is supple. There is no jugular venous distention, no subcutaneous emphysema. Trachea is midline. Mouth shows his mucous membranes to be pink and moist. Lips and commissures without lesions. Eyes show his pupils to be equal and reactive. Extraocular motions are intact. Sclerae anicteric. Neuro shows II-XII intact, along with gross motor and gross sensation intact. Gait is not tested. Psychiatric shows him to be somnolent but arousable and following commands. His white count today is 8.9 with hemoglobin and hematocrit of 12.6 and 37.1. Platelet count is 244 and differential shows 84% neutrophils, 4% lymphocytes, 6% monocytes. There are no immature forms, no toxic granulations. His white count has markedly come down yesterday from 16. His electrolytes are normal with a potassium of 3.6 and a sodium of 142. BUN and creatinine are 80 and 3.56, slightly improved over last night 80 and 3.73. Calcium is 7.9 with a phosphorus of 6.0 and a magnesium of 2.7. Albumin is 2.0. AST and ALT are normal at 26 and 24 respectively. There is no new microbiology on him having growing Enterobacter cloacae complex sensitive to everything except cefazolin. His vancomycin was discontinued yesterday and he continues on Zosyn. His chest x-ray today done portably still shows the right lower lobe infiltrative pattern. Left lung is fully expanded to the chest wall. Chest tubes are in good place. Infiltrate looks finer but it looks to be denser than it has been. IMPRESSION: 1. Postoperative day #6 status post left upper lobectomy. 2. 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 3. Chronic obstructive pulmonary disease (COPD). 4. Bilateral parotid tumors. 5. Hypothyroidism. 6. Hypertension. 7. Rheumatoid arthritis. 8. Gastroesophageal reflux disease. 9. Depression. 10. Postoperative pneumonia. 11. Hypoxia. 12. Postoperative ileus. 13. Preoperative immunosuppression secondary to methotrexate and prednisone for arthritis. 15. Hyperphosphatemia secondary to renal insufficiency. 16. Hypermagnesemia. PLAN AND DISCUSSION: I will continue his aggressive hydration. I am very happy to see that his creatinine has plateaued. He is making large quantities of urine this morning. This is without diuretics. As noted above, his vancomycin was discontinued He is continued on piperacillin. His oxygen requirement is decreasing, now down to 60% Ventimask and off the continuous positive airway pressure (CPAP). I have written a second bottle of hyperalimentation and agree with the phosphorus and magnesium. I will also remove his chest tubes today as they are draining very little and there is no air leak. He is just going to require time to get over the postoperative pneumonia.
[2016-10-03] MEDS: MORPHINE 2 MG/ML 1ML SYRINGE IV PRN ×4 (12:39→22:47)
[2016-10-03] MEDS ORDERED: FAT EMULSION IV 20% 500 ML IV SCH (18:00)
[2016-10-03] MEDS ORDERED: SODIUM ACETATE IV SCH ×5 (18:00)
[2016-10-03] MEDS ORDERED: [UNRECOGNIZED DRUG - OTHER] IV SCH ×5 (18:00)
[2016-10-03] MEDS ORDERED: SODIUM CHLORIDE IV SCH ×5 (18:00)
--- NOTE | 2016-10-03 23:16 | RO ---
DATE OF PROCEDURE: 10/02/2016 PREPROCEDURE DIAGNOSES: Need for vascular access. Need for hyperalimentation. Need for cardiac monitoring. POSTPROCEDURE DIAGNOSES: Need for vascular access. Need for hyperalimentation. Need for cardiac monitoring. PROCEDURE: Insertion of left subclavian central line. SURGEON: Franki Fulton MD PATTERN DRUM MAKER: ANESTHESIA: DESCRIPTION OF PROCEDURE: Patient's infraclavicular fossa was prepped and draped in the usual sterile fashion. The vein was found on the second pass, and a wire was placed. There was quite a bit of stuttering with drawing blood secondary to his dehydration. Nonetheless, the wire was placed with reduction of premature ventricular contractions (PVCs). Tract was dilated, and a triple-lumen catheter was inserted by Seldinger technique. Ports were aspirated and flushed, and the catheter was secured to the chest wall with two #3-0 silk sutures. Patient tolerated the procedure well, and a chest x-ray is pending.
[2016-10-04] VITALS (21 sets, daily range): BP systolic 144–191; BP diastolic 66–105
--- NOTE | 2016-10-04 00:23 | ECGEPIP ---
Stationary ECG Study [facility] Test Date: 2016-10-02 Pat Name: CAROLINE YAÑEZ Department: Room: [place] [address] Gender: M Verification Lead: : 1940 Requested By: Franki Ornelas Order Number: [id number] Reading MD: Miles Bourgeois Measurements Intervals Sullivan Rate: 88 P: 15 [place]: 180 QRS: 29 QRSD: 145 T: -12 QT: 362 QTc: 438 Interpretive Statements SINUS RHYTHM RIGHT BUNDLE BRANCH BLOCK Nonspecific ST-T abnormality Compared to the last 3 tracings in the system, no significant changes Electronically Signed On 10-04-2016 0:22:54 EDT by Miles Bourgeois
[2016-10-04] MEDS: HumaLOG INSULIN (NovoLOG) PER UNIT SC SCH ×4 (00:32→17:44)
[2016-10-04] MEDS: METOCLOPRAMIDE INJ 10MG/2ML VIAL (J2765) IV SCH ×4 (00:32→17:44)
[2016-10-04] MEDS: KCL 20MEQ IN D5/NS 1000ML 1,000 ML IV SCH (00:57)
[2016-10-04] MEDS: MORPHINE 2 MG/ML 1ML SYRINGE IV PRN (00:58)
[2016-10-04] MEDS: ACETAMINOPHEN 500 MG TAB PO PRN (00:59)
[2016-10-04] MEDS: PIPERACILLIN/TAZOBACTAM SOD 3.375 GM in D5W MINI-BAG PLUS 50 ML IV SCH ×4 (02:45→20:07)
[2016-10-04] MEDS: LEVALBUTEROL 1.25 MG/0.5 ML CONCENTRATE NEB NEB SCH ×4 (03:08→19:39)
[2016-10-04 06:00] LABS: BASO % 0.2 % (0.0-1.0); EOS # 0.2 K/mm3 (0.0-0.50); EOS % 1.8 % (0.0-3.0); LARGE UNSTAINED CELL # 0.1 K/mm3 (0.0-0.4); LARGE UNSTAINED CELL % 1.2 % (0.0-4.0); LYMPH # 0.6 K/mm3 (1.5-4.5); LYMPH % 4.1 % (24.0-44.0); MEAN CORPUSCULAR HEMOGLOBIN 33.3 pg (27.0-33.0); MEAN CORPUSCULAR VOLUME 100.9 fl (80.0-96.0); MONO # 0.7 K/mm3 (0.0-0.8); MONO % 6.4 % (0.0-5.0); NEUTROPHILS # 8.9 K/mm3 (1.8-7.7); NEUTROPHILS % 86.4 % (36.0-66.0); PLATELET COUNT, AUTOMATED 238 k/mm3 (150-450); RED CELL DISTRIBUTION WIDTH 16.1 % (11.5-14.5); WHITE BLOOD COUNT 10.3 K/mm3 (4.0-10.0)
[2016-10-04 06:02] LABS: ALBUMIN 1.9 GM/DL (3.2-5.2); ALBUMIN/GLOBULIN RATIO 0.53 (1.00-1.93); BILIRUBIN,TOTAL 0.3 MG/DL (0.2-1.0); CALCIUM LEVEL 7.6 MG/DL (8.8-10.2); CREATININE FOR GFR 2.63 MG/DL (0.70-1.30); GLOMERULAR FILTRATION RATE 25.4 (>42); MAGNESIUM LEVEL 2.7 MG/DL (1.8-2.4); POTASSIUM SERUM 3.8 MEQ/L (3.5-5.1); TOTAL PROTEIN 5.5 GM/DL (6.4-8.2)
[2016-10-04] MEDS: MOM 30ML SUSPENSION UDC PO SCH (08:16)
[2016-10-04] MEDS: LEVOTHYROXINE 100MCG TABLET (0.1MG) PO SCH (08:17)
[2016-10-04] MEDS: CO-ENZYME Q10 50 MG CAP PO SCH (08:17)
[2016-10-04] MEDS: PANTOPRAZOLE 40MG TAB (PROTONIX) PO SCH (08:17)
[2016-10-04] MEDS: DOCUSATE SODIUM 100 MG CAP PO SCH ×2 (08:17→20:07)
[2016-10-04] MEDS: CYANOCOBALAMIN 500 MCG TAB PO SCH (08:17)
[2016-10-04] MEDS: CALCIUM/VITAMIN D 500 MG TAB PO SCH ×2 (08:18→20:08)
[2016-10-04] MEDS: FOLIC ACID 1 MG TAB PO SCH (08:18)
[2016-10-04] MEDS: SERTRALINE HCL 50 MG TAB PO SCH (08:18)
[2016-10-04] MEDS: predniSONE 1 MG TAB PO SCH ×2 (08:18→20:08)
[2016-10-04] MEDS: HEPARIN SOD (PORCINE) 5000 UNITS/ML VIAL SC SCH ×2 (08:19→20:08)
[2016-10-04] MEDS: NIFEdipine 60 MG XL TAB PO SCH ×2 (08:19→20:08)
--- NOTE | 2016-10-04 08:29 | REP ---
Portable chest, single AP view, the patient sitting, 10/04/2016 at 07:32 a.m. Comparison 11/02/2016. There is a large right lung infiltrate not significantly changed. Left lung again is relatively clear. Cardiac size is enlarged, unchanged. The previous two left chest tubes have been removed. There is no pneumothorax or pleural fluid collection. The left subclavian central venous catheter is unchanged. There is a tiny amount of subcutaneous emphysema over the left apex, along left chest wall. Signed by Bryan Stock MD 10/04/2016 08:20 A
--- NOTE | 2016-10-04 17:37 | IPN ---
DATE: 10/04/2016 This is now the 7th postoperative day for Mr. Howard status-post a left upper lobectomy. He certainly looks better on paper today. He is still requiring CPAP. He is able to go longer periods of time without it. His pain is being well controlled. He has some systolic hypertension but with normal diastolic pressures. His vital signs show a maximum temperature (Tmax) of 99.6, with a heart rate that is ranging between 82-87 in a sinus rhythm, with a respiratory rate of 19-24 without the use of accessory muscles but on CPAP. He is 96% saturated on a 55% FiO2 with a blood pressure ranging between 186/84 to 170/74. Intake and output over the past 24 hours has been recorded as 3383 in and 3350 out for near equality. He is spontaneously diuresing. His chest tubes were removed yesterday. He has put out 200 mL from the NG tube. He weighs 83 kg today compared to 85.5 kg yesterday. His IV rate a total of 150 mL an hour. I will half that today and just maintain him on hyperalimentation. On physical examination, he has course and fine crackles on the right side during inspiration. I hear no wheezing. Percussion note is full to the diaphragm. Left lung actually shows normal vesicular sounds. Cardiac exam is without murmurs, clicks, gallops, or rubs. I cannot feel his point of maximum impulse (PMI). S1 and S2 are normal. Abdomen is soft, nontender but bowel sounds are still quite hypoactive. There is no hepatomegaly. Extremities show no pretibial edema and no calf tenderness. There is no differential swelling of the upper extremities. Skin is warm, dry and perfused without cyanosis or mottling, including that of the nail beds and the knees. Neck is supple. There is no jugular venous distention, no subcutaneous emphysema. Trachea is midline. Mouth shows his mucous membranes to be pink and moist. Lips and commissures without lesions. Eyes show his pupils to be equal and reactive. Extraocular motions are intact. Sclerae anicteric. Neuro shows II-XII intact, along with gross motor and gross sensation intact. Gait is not tested. Psychiatric shows him to be awake and alert. His white count today is 10.3 up from 8.9 yesterday but down from 16.1 the day before. Hemoglobin and hematocrit of 12.3 and 37.2, most likely secondary to hemodilution. Platelet count is 238 and stable and differential shows 86% neutrophils, 4% lymphocytes, 6% monocytes. There are no immature forms, no toxic granulations. His electrolytes today show a marginally high sodium of 146 with potassium 3.8. Total CO2 was 27 with a BUN and creatinine of 72.63 down from 80 and 3.56 yesterday and 80 and 3.73 the day before. Calcium is 7.6 with an albumin of 1.9. Phosphorus has normalized to 3.0 and his magnesium is still slightly high at 2.7. AST and ALT have climbed to 46 and 41 respectively. With the AST just outside the upper limits of normal. It turns out that yesterdays amylase and lipase were normal. There are no blood gases on him today. His chest x-ray done portably today still shows a diffuse interstitial pattern consistent with interstitial edema. It is has progressed from a lower lobe infiltrate to a generalized interstitial edema. The left lung looks to be clear. Both costophrenic angles are sharp. There is volume loss course on the left side from his lobectomy. IMPRESSION: 1. Postoperative day #7 status post left upper lobectomy. 2. 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 3. Chronic obstructive pulmonary disease (COPD). 4. Bilateral parotid tumors. 5. Hypothyroidism. 6. Hypertension. 7. Rheumatoid arthritis. 8. Gastroesophageal reflux disease. 9. Depression. 10. Postoperative pneumonia growing enterobacter cloacae. 11. Hypoxia. 12. Postoperative ileus, continuing. 13. Preoperative immunosuppression secondary to methotrexate and prednisone for arthritis. 15. Hyperphosphatemia secondary to renal insufficiency, resolved. 16. Hypermagnesemia, improving. PLAN AND DISCUSSION: As noted above I am going to cut back his fluids. His NG output is much less and I think that his postoperative ileus is resolving. He still remains on CPAP. He is growing enterobacter cloacae complex for which he is on Zosyn. His kidneys are improving and I am not going to decrease the Zosyn dose. We will continue to get him up in a chair and in fact we did that this morning and his oxygenation improved. I have now written a third bottle of hyperalimentation, marginally decreasing his sodium. He is a spontaneously diurese which is probably a good sign. I do not think that this represents adrenal insufficiency. He is on Prednisone 1 mg twice a day. Dr. Zapata raise the possibility that the lung disease could be a manifestation of his rheumatoid arthritis. Given the clinical course I am loathe to start him on his methotrexate again. We will continue to ventilatory support him. I am gratified with his creatinine decreasing spontaneously.
[2016-10-04] MEDS ORDERED: FAT EMULSION IV 20% 500 ML IV SCH (18:00)
[2016-10-04] MEDS ORDERED: SODIUM CHLORIDE IV SCH ×8 (18:00)
[2016-10-04] MEDS ORDERED: [UNRECOGNIZED DRUG - OTHER] IV SCH ×8 (18:00)
[2016-10-04] MEDS ORDERED: SODIUM ACETATE IV SCH ×8 (18:00)
[2016-10-04] MEDS ORDERED: METOPROLOL 5 MG/5 ML VIAL IV STA (21:51)
[2016-10-04] MEDS ORDERED: METOPROLOL 5 MG/5 ML VIAL As Ordered ONE (21:54)
[2016-10-05] VITALS (13 sets, daily range): BP systolic 136–193; BP diastolic 66–107
[2016-10-05] MEDS: HumaLOG INSULIN (NovoLOG) PER UNIT SC SCH ×5 (00:11→23:58)
[2016-10-05] MEDS: METOCLOPRAMIDE INJ 10MG/2ML VIAL (J2765) IV SCH ×5 (00:14→23:14)
[2016-10-05] MEDS: LEVALBUTEROL 1.25 MG/0.5 ML CONCENTRATE NEB NEB SCH ×4 (00:58→19:36)
[2016-10-05] MEDS: PIPERACILLIN/TAZOBACTAM SOD 3.375 GM in D5W MINI-BAG PLUS 50 ML IV SCH ×4 (02:12→19:51)
[2016-10-05] MEDS ORDERED: METOPROLOL 5 MG/5 ML VIAL IV STA (03:58)
[2016-10-05 04:30] LABS: BASO % 0.3 % (0.0-1.0); EOS # 0.4 K/mm3 (0.0-0.50); EOS % 2.3 % (0.0-3.0); LARGE UNSTAINED CELL # 0.2 K/mm3 (0.0-0.4); LARGE UNSTAINED CELL % 1.1 % (0.0-4.0); LYMPH # 0.8 K/mm3 (1.5-4.5); LYMPH % 3.8 % (24.0-44.0); MEAN CORPUSCULAR HEMOGLOBIN 33.8 pg (27.0-33.0); MEAN CORPUSCULAR HGB CONC 33.8 g/dl (32.0-36.5); MEAN CORPUSCULAR VOLUME 100.1 fl (80.0-96.0); MONO # 0.8 K/mm3 (0.0-0.8); NEUTROPHILS # 13.8 K/mm3 (1.8-7.7); NEUTROPHILS % 87.5 % (36.0-66.0); PLATELET COUNT, AUTOMATED 303 k/mm3 (150-450); RED CELL DISTRIBUTION WIDTH 15.9 % (11.5-14.5); WHITE BLOOD COUNT 15.8 K/mm3 (4.0-10.0)
[2016-10-05 04:55] LABS: ALBUMIN/GLOBULIN RATIO 0.4 (1.00-1.93); CREATININE FOR GFR 2.19 MG/DL (0.70-1.30); GLOMERULAR FILTRATION RATE 31.4 (>42); MAGNESIUM LEVEL 2.7 MG/DL (1.8-2.4); PHOSPHORUS LEVEL 2.7 MG/DL (2.5-4.9); POTASSIUM SERUM 3.4 MEQ/L (3.5-5.1)
[2016-10-05 05:19] LABS: BILIRUBIN,TOTAL 0.4 MG/DL (0.2-1.0)
[2016-10-05 08:20] LABS: ABG BASE EXCESS 6.1 (-2.0-2.0); ABG HCO3 29.9 MEQ/L (22.0-26.0); ABG PARTIAL PRESSURE CO2 40.1 mmHg (35.0-45.0); ABG PARTIAL PRESSURE O2 83.6 mmHg (75.0-100.0); ABG TOTAL CO2 31.1 MEQ/L (23.0-31.0)
[2016-10-05] MEDS: FOLIC ACID 1 MG TAB PO SCH (08:59)
[2016-10-05] MEDS: DOCUSATE SODIUM 100 MG CAP PO SCH ×2 (09:00→19:06)
[2016-10-05] MEDS: SERTRALINE HCL 50 MG TAB PO SCH (09:00)
[2016-10-05] MEDS: predniSONE 1 MG TAB PO SCH ×2 (09:00→20:50)
[2016-10-05] MEDS: CO-ENZYME Q10 50 MG CAP PO SCH (09:00)
[2016-10-05] MEDS: LEVOTHYROXINE 100MCG TABLET (0.1MG) PO SCH (09:00)
[2016-10-05] MEDS: MOM 30ML SUSPENSION UDC PO SCH (09:00)
[2016-10-05] MEDS: CALCIUM/VITAMIN D 500 MG TAB PO SCH ×2 (09:01→20:49)
--- NOTE | 2016-10-05 09:01 | REP ---
AP PORTABLE CHEST: 10/05/2016 at 08:04 AM. COMPARISON: 10/04/2016, 10/03/2016, 10/02/2016. CLINICAL HISTORY: Status post left upper lobectomy. FINDINGS: Volume loss again seen in the left hemithorax. Tubing overlies the left chest and heart border. Right lung is well inflated. There is diffuse interstitial infiltrate throughout much of that lung, stable in appearance. The cardiomediastinal silhouette is unchanged. There is a right subclavian central catheter with tip in SVC also stable. No gross effusion or pneumothorax. IMPRESSION: 1. Diffuse interstitial infiltrates in the right lung stable to slightly improved compared to yesterday. Cardiomegaly without eunice edema. No pneumothorax. Left subclavian line unchanged. Volume loss in the left hemithorax. That lung appears stable. Signed by Sascha Cano MD 10/05/2016 07:46 P
[2016-10-05] MEDS: METOPROLOL 5 MG/5 ML VIAL IV SCH ×3 (09:03→21:02)
[2016-10-05] MEDS: PANTOPRAZOLE 40MG TAB (PROTONIX) PO SCH (09:06)
[2016-10-05] MEDS: HEPARIN SOD (PORCINE) 5000 UNITS/ML VIAL SC SCH ×2 (09:06→20:50)
[2016-10-05] MEDS: CYANOCOBALAMIN 500 MCG TAB PO SCH (09:10)
[2016-10-05] MEDS: NIFEdipine 60 MG XL TAB PO SCH ×2 (09:25→20:50)
--- NOTE | 2016-10-05 14:43 | IPN ---
DATE OF SERVICE: 10/05/2016 Mr. Howard certainly looks better on paper. However, today, he looks to be in a bit respiratory distress with a rocking abdominal motion with breathing. He was on a VentiMask almost all night, and he is now back on continuous positive airway pressure (CPAP); and hopefully, that will take care of his labored breathing. His vital signs show a maximum temperature (T max) of 99.9 with a heart rate that ranges between 103 and 90 in a sinus rhythm, but he has been up to 150 in atrial fibrillation to which he responded to lopressor. Respiratory rate is 21-24 with above described rocking breathing motions. He is 96% saturated on 55% VentiMask and on continuous positive airway pressure (CPAP). His intake and output over the past 24 hours has been recorded as 2868 in and 4230 out for a negativity of 1362 mL. He has diuresed spontaneously without the help of diuretics. His chest tube was removed two days ago. His nasogastric (NG) drainage has been 260, down from 2300 two days ago and essentially is the same as yesterday's of 200. Weight today is 82.6 kg compared to 83 kg yesterday. On physical examination, his lungs show bilateral equal breath sounds. I do hear some wheezing during expiration. It is a low-pitched wheezing. This is accompanied by coarse rhonchi and crackles during inspiration. Percussion note is full to the diaphragm. Cardiac examination is without murmurs, clicks, gallops, or rubs. I cannot feel his point of maximum impulse (PMI). S1 and S2 are normal. Abdomen is soft and nontender. Bowel sounds are still very hypoactive. He had a large bowel movement this morning. There is no hepatomegaly. No costovertebral angle (CVA) tenderness. Extremities show no pretibial edema. No calf tenderness. There is no differential swelling of the upper extremities. Skin is warm, dry, and perfused without cyanosis or mottling, including that of the nail beds and the knees. Neck is supple. There is no jugular venous distention, no subcutaneous emphysema. Trachea is midline. Mouth shows his mucous membranes to be pink and moist. Lips and commissures without lesions. Eyes show his pupils to be equal and reactive. Extraocular motions are intact. Sclerae anicteric. Neurologic shows II-XII intact, along with gross motor and gross sensation intact. Gait is not tested. Psychiatric shows him to be awake and alert. His white count today is 15.8 up from 10.3 yesterday. His hemoglobin and hematocrit are also increased to 13.7 and 40.5 from 12.3 and 37.2. I suspect both of these are secondary to hemoconcentration. Platelet count is 303 and stable. The differential shows 87% neutrophils, 3% lymphocytes, 5% monocytes. The differential is unchanged, and there are no toxic granulations and no immature forms. His electrolytes today show a sodium of 149 up from 146 yesterday with a potassium of 3.4. Total CO2 is 31 with a BUN and creatinine of 60 and 2.19 improved from 70 and 2.63 yesterday. Calcium is 9.0 with a corresponding albumin of 2.0 which is also increased from 1.9 yesterday. AST and ALT are down to 40 and 57, respectively, 46 and 41 yesterday. His blood gases show a pH of 7.49, a PCO2 of 41, and a pO2 of 85 while on 8 of continuous positive airway pressure (CPAP) and an FiO2 of 55%. His chest x-ray is markedly improved from yesterday's and the last few days. The right-sided infiltrate looks to be less dense. Costophrenic angles are sharp. There is no subcutaneous emphysema, and the lungs are fully expanded to the chest wall. The chest x-ray is done portably again today secondary to his dependence on his CPAP. IMPRESSION: 1. Postoperative day #8, status post left upper lobectomy. 2. Squamous cell carcinoma, left upper lobe, stage 1A, [id number]. 3. Chronic obstructive pulmonary disease (COPD). 4. Bilateral parotid tumors. 5. Hypothyroidism. 6. Hypertension. 7. Rheumatoid arthritis. 8. Gastroesophageal reflux disease (GERD). 9. Depression. 10. Postoperative pneumonia growing Enterobacter cloacae. 11. Hypoxia. 12. Postoperative ileus, resolving. 13. Preoperative immunosuppression secondary to methotrexate and prednisone for rheumatoid arthritis. 14. Hyperphosphatemia, resolved. 15. Hypermagnesemia, improving. 16. Hypokalemia, being treated with increased hyperalimentation. 17. Hypernatremia, being increased with the hyperalimentation solution. 18. New-onset atrial fibrillation, treated with Lopressor. PLAN AND DISCUSSION: I am a bit concerned about the way he is breathing today. Everything else looks good on paper with his renal function improving and his blood gases quite satisfactory. I am hoping that he is just tired from the night of the VentiMask. His x-ray is improving. He is spontaneously diuresing, and I am assuming that the hemoglobin and hematocrit, albumin, and sodium are secondary to hemoconcentration. I am mostly going to assign the increased white count to hemoconcentration, although that is controversial. I will obtain another sputum culture. Will continue on the CPAP support.
[2016-10-05] MEDS ORDERED: FAT EMULSION IV 20% 500 ML IV SCH (18:00)
[2016-10-05] MEDS ORDERED: POTASSIUM CHLORIDE IV SCH ×5 (18:00)
[2016-10-05] MEDS ORDERED: SODIUM ACETATE IV SCH ×5 (18:00)
[2016-10-05] MEDS ORDERED: [UNRECOGNIZED DRUG - OTHER] IV SCH ×5 (18:00)
[2016-10-06] VITALS (17 sets, daily range): BP systolic 161–192; BP diastolic 74–90; O2SAT 90
[2016-10-06] MEDS: PIPERACILLIN/TAZOBACTAM SOD 3.375 GM in D5W MINI-BAG PLUS 50 ML IV SCH ×4 (01:44→20:54)
[2016-10-06] MEDS: LEVALBUTEROL 1.25 MG/0.5 ML CONCENTRATE NEB NEB SCH ×4 (02:37→19:27)
[2016-10-06] MEDS: METOPROLOL 5 MG/5 ML VIAL IV SCH ×4 (03:01→23:01)
[2016-10-06] MEDS: METOCLOPRAMIDE INJ 10MG/2ML VIAL (J2765) IV SCH ×3 (05:15→17:16)
[2016-10-06] MEDS: HumaLOG INSULIN (NovoLOG) PER UNIT SC SCH ×3 (05:31→17:13)
[2016-10-06 05:54] LABS: BASO # 0.2 K/mm3 (0.0-0.2); EOS # 0.3 K/mm3 (0.0-0.50); LARGE UNSTAINED CELL # 0.3 K/mm3 (0.0-0.4); LARGE UNSTAINED CELL % 1.8 % (0.0-4.0); LYMPH # 0.9 K/mm3 (1.5-4.5); LYMPH % 6.2 % (24.0-44.0); MEAN CORPUSCULAR HEMOGLOBIN 34.2 pg (27.0-33.0); MEAN CORPUSCULAR HGB CONC 33.7 g/dl (32.0-36.5); MEAN CORPUSCULAR VOLUME 101.5 fl (80.0-96.0); MONO # 0.9 K/mm3 (0.0-0.8); MONO % 5.8 % (0.0-5.0); NEUTROPHILS # 12.6 K/mm3 (1.8-7.7); NEUTROPHILS % 83.2 % (36.0-66.0); PLATELET COUNT, AUTOMATED 313 k/mm3 (150-450); RED CELL DISTRIBUTION WIDTH 15.4 % (11.5-14.5); WHITE BLOOD COUNT 15.2 K/mm3 (4.0-10.0)
[2016-10-06 06:11] LABS: ALBUMIN/GLOBULIN RATIO 0.41 (1.00-1.93); BILIRUBIN,TOTAL 0.5 MG/DL (0.2-1.0); CALCIUM LEVEL 9.2 MG/DL (8.8-10.2); CREATININE FOR GFR 2.02 MG/DL (0.70-1.30); GLOMERULAR FILTRATION RATE 34.5 (>42); MAGNESIUM LEVEL 2.6 MG/DL (1.8-2.4); PHOSPHORUS LEVEL 3.4 MG/DL (2.5-4.9); POTASSIUM SERUM 3.3 MEQ/L (3.5-5.1); TOTAL PROTEIN 6.9 GM/DL (6.4-8.2)
[2016-10-06] MEDS: DOCUSATE SODIUM 100 MG CAP PO SCH ×2 (09:00→21:00)
[2016-10-06] MEDS: MOM 30ML SUSPENSION UDC PO SCH (09:00)
--- NOTE | 2016-10-06 09:04 | REP ---
AP PORTABLE CHEST: 10/06/2016 at 07:56 AM. COMPARISON: 10/05/2016, 10/04/2016, 10/03/2016. CLINICAL HISTORY: Status post left lobectomy. FINDINGS: Volume loss in the left hemithorax again noted and unchanged. There is an indwelling left subclavian catheter also unchanged with tip in SVC. This follows an atypical course to the SVC passing under the aortic arch. This may be an anatomic variation such as branch of superior intercostal vein. Hazy interstitial opacities throughout the right lung. Streaky densities on the left. Allowing for slight differences in technique between a seated and semi-erect chest yesterday, there does not appear to be much interval change. No recurrent residual pneumothorax nor gross effusion on the left. Signed by Sascha Cano MD 10/06/2016 10:48 A
[2016-10-06] MEDS: FOLIC ACID 1 MG TAB PO SCH (09:09)
[2016-10-06] MEDS: HEPARIN SOD (PORCINE) 5000 UNITS/ML VIAL SC SCH ×2 (09:09→20:55)
[2016-10-06] MEDS: CALCIUM/VITAMIN D 500 MG TAB PO SCH ×2 (09:10→20:55)
[2016-10-06] MEDS: CYANOCOBALAMIN 500 MCG TAB PO SCH (09:10)
[2016-10-06] MEDS: PANTOPRAZOLE 40MG TAB (PROTONIX) PO SCH (09:11)
[2016-10-06] MEDS: predniSONE 1 MG TAB PO SCH (09:11)
[2016-10-06] MEDS: SERTRALINE HCL 50 MG TAB PO SCH (09:11)
[2016-10-06] MEDS: LEVOTHYROXINE 100MCG TABLET (0.1MG) PO SCH (09:11)
[2016-10-06] MEDS: CO-ENZYME Q10 50 MG CAP PO SCH (09:12)
[2016-10-06] MEDS: NIFEdipine 60 MG XL TAB PO SCH ×2 (09:28→20:56)
[2016-10-06] MEDS: POTASSIUM CHLORIDE INJ 40 MEQ in D5W 1,000 ML IV SCH (09:32)
[2016-10-06] MEDS: methylPREDNISolone INJ 125 MG/2 ML VIAL (J2930) IV SCH ×2 (10:51→23:01)
[2016-10-06] MEDS: NYSTATIN 500,000 U/5 ML SUSP UDC SS SCH ×4 (11:12→20:55)
--- NOTE | 2016-10-06 12:21 | IPN ---
DATE OF SERVICE: 10/06/2016 This is now the 9th postoperative day for Mr. Howard, status post his left upper lobectomy. She is still requiring continuous positive airway pressure (CPAP) and is still hypoxic. We tried to take him off CPAP and put him on a VentiMask, and he tolerates it for about an hour with saturations dropping to 70. His chest x-ray continues to slightly improve, and it is certainly better than 2 days ago. He continues to spontaneously diurese, and his BUN and creatinine are getting better. He still has a quiet abdomen and is slightly distended and tympanitic. He also continues on hyperalimentation. His vital signs show a maximum temperature (T max) of 110.3. His heart rate varies between 73 and 120. He occasionally goes up into atrial fibrillation, but he has been placed on intravenous (IV) lopressor with control of the rhythm and rate. His respiratory rate varies between 24 and 30 without the use of accessory muscles on bilateral positive airway pressure (BiPAP), and he is 97% to 90% saturated at 55% on the CPAP. His blood pressure is ranging between 167/77 to 166/76. His intake and output over the past 24 hours has been recorded as 2499 in and 2990 out for a negativity of 500 mL. He has put out 2950 mL in urine spontaneously. Almost all of his IV fluid is starting to be hyperalimentation and antibiotics. On physical examination, he has diffuse crackles throughout the right lung, along with coarse rhonchi. The left lung shows almost normal vesicular sounds. Percussion notes are full to the diaphragm. Cardiac examination is without murmurs, clicks, gallops, or rubs. I cannot feel his point of maximum impulse (PMI). S1 and S2 are normal. Abdomen is soft but slightly distended and tympanitic. It is nontender. Bowel sounds are hypoactive. There is no hepatomegaly. No costovertebral angle (CVA) tenderness. Extremities show no pretibial edema. No calf tenderness. There is no differential swelling of the upper extremities. Skin is warm, dry, and perfused without cyanosis or mottling, including that of the nail beds and the knees. Neck is supple. There is no jugular venous distention, no subcutaneous emphysema. Trachea is midline. Mouth shows his mucous membranes to be pink and moist. Lips and commissures without lesions. He looks to have thrush. Neurologic shows II-XII intact, along with gross motor and gross sensation intact. Gait is not tested. Psychiatric shows him to be awake and alert and oriented times three with appropriate mood and affect and conversational. His eyes show his pupils to be equal, round, and reactive. Extraocular motions are intact. Sclerae anicteric. His white count today is 15.2 slightly down from yesterday's of 15.8, hemoglobin and hematocrit are 14.0 and 41.5 continuing to rise, probably secondary to hemoconcentration. Platelet count is 313 and differential shows 83% neutrophils, 6% lymphocytes, 5% monocytes. There are no toxic granulations and no immature forms. His sodium today, however, is up to 152 from 149 yesterday. Potassium is 3.3. His BUN and creatinine are 63 and 2.02 compared to 60 and 2.19 yesterday. Calcium is 9.2 with a phosphorus of 3.4 and a magnesium of 2.6. Albumin is 2.0. His chest x-ray shows the lung fully expanded to the chest wall. The right-sided infiltrate looks to be finer and resolving. Costophrenic angles are sharp. The x-ray again is done portably today. There is no subcutaneous emphysema. IMPRESSION: 1. Postoperative day #9, status post left upper lobectomy. 2. Squamous cell carcinoma, left upper lobe, stage 1A, [id number]. 3. Chronic obstructive pulmonary disease (COPD). 4. Bilateral parotid tumors. 5. Hypothyroidism. 6. Hypertension. 7. Rheumatoid arthritis. 8. Gastroesophageal reflux disease (GERD). 9. Depression. 10. Postoperative pneumonia growing Enterobacter cloacae, on Zosyn. 11. Hypoxia. 12. Postoperative ileus, resolving. 13. Preoperative immunosuppression secondary to methotrexate and prednisone for rheumatoid arthritis. 14. Hypermagnesemia, improving. 15. Hypokalemia, continuing. 16. Hypernatremia, continuing. 17. Paroxysmal atrial fibrillation. Treated with Lopressor. PLAN AND DISCUSSION: I will adjust his electrolytes accordingly in the hyperalimentation. I will also give him some free water. The question that arises is as to his hypoxia. He only grew a few colonies of Enterobacter. Dr. Zapata and I have discussed with the conjecture that perhaps methotrexate withdrawal may have caused an acute respiratory distress syndrome (ARDS) pattern. Alternatively, he could have hypoadrenalism; i.e., Tenzin's, and not responding to the stress of surgery, seeing that he is only on 1 mg of prednisone twice a day. We are going to give him a Solu-Medrol dose. Will continue on CPAP.
[2016-10-06 17:10] LABS: CALCIUM LEVEL 8.8 MG/DL (8.8-10.2); CREATININE FOR GFR 2.03 MG/DL (0.70-1.30); GLOMERULAR FILTRATION RATE 34.3 (>42); POTASSIUM SERUM 3.7 MEQ/L (3.5-5.1)
[2016-10-06] MEDS ORDERED: [UNRECOGNIZED DRUG - OTHER] IV SCH ×5 (18:00)
[2016-10-06] MEDS ORDERED: POTASSIUM CHLORIDE IV SCH ×5 (18:00)
[2016-10-06] MEDS ORDERED: FAT EMULSION IV 20% 500 ML IV SCH (18:00)
[2016-10-06] MEDS ORDERED: SODIUM ACETATE IV SCH ×5 (18:00)
[2016-10-07] VITALS (19 sets, daily range): BP systolic 143–196; BP diastolic 69–92
[2016-10-07] MEDS: METOCLOPRAMIDE INJ 10MG/2ML VIAL (J2765) IV SCH ×5 (00:11→23:37)
[2016-10-07] MEDS: HumaLOG INSULIN (NovoLOG) PER UNIT SC SCH ×5 (00:14→23:35)
[2016-10-07] MEDS: POTASSIUM CHLORIDE INJ 40 MEQ in D5W 1,000 ML IV SCH (00:14)
[2016-10-07] MEDS: LEVALBUTEROL 1.25 MG/0.5 ML CONCENTRATE NEB NEB SCH ×4 (00:56→19:44)
[2016-10-07] MEDS: PIPERACILLIN/TAZOBACTAM SOD 3.375 GM in D5W MINI-BAG PLUS 50 ML IV SCH (02:30)
[2016-10-07] MEDS: METOPROLOL 5 MG/5 ML VIAL IV SCH (05:08)
[2016-10-07 05:35] LABS: BASO # 0.1 K/mm3 (0.0-0.2); BASO % 0.5 % (0.0-1.0); EOS # 0.1 K/mm3 (0.0-0.50); EOS % 0.6 % (0.0-3.0); LARGE UNSTAINED CELL # 0.2 K/mm3 (0.0-0.4); LARGE UNSTAINED CELL % 1.7 % (0.0-4.0); LYMPH # 0.9 K/mm3 (1.5-4.5); LYMPH % 4.8 % (24.0-44.0); MEAN CORPUSCULAR HEMOGLOBIN 32.8 pg (27.0-33.0); MEAN CORPUSCULAR HGB CONC 31.7 g/dl (32.0-36.5); MEAN CORPUSCULAR VOLUME 103.7 fl (80.0-96.0); MONO # 0.4 K/mm3 (0.0-0.8); MONO % 3.2 % (0.0-5.0); NEUTROPHILS % 89.2 % (36.0-66.0); PLATELET COUNT, AUTOMATED 285 k/mm3 (150-450); RED CELL DISTRIBUTION WIDTH 15.6 % (11.5-14.5); WHITE BLOOD COUNT 13.5 K/mm3 (4.0-10.0)
[2016-10-07 05:59] LABS: ALBUMIN 2.1 GM/DL (3.2-5.2); ALBUMIN/GLOBULIN RATIO 0.51 (1.00-1.93); BILIRUBIN,TOTAL 0.4 MG/DL (0.2-1.0); CALCIUM LEVEL 8.4 MG/DL (8.8-10.2); CREATININE FOR GFR 1.86 MG/DL (0.70-1.30); GLOMERULAR FILTRATION RATE 37.9 (>42); MAGNESIUM LEVEL 2.1 MG/DL (1.8-2.4); POTASSIUM SERUM 3.9 MEQ/L (3.5-5.1); TOTAL PROTEIN 6.2 GM/DL (6.4-8.2)
[2016-10-07] MEDS: DOCUSATE SODIUM 100 MG CAP PO SCH ×2 (07:20→20:45)
[2016-10-07] MEDS: MOM 30ML SUSPENSION UDC PO SCH (07:21)
[2016-10-07] MEDS ORDERED: POTASSIUM CHLORIDE INJ 40 MEQ in D5W 1,000 ML IV SCH (08:30)
[2016-10-07] MEDS: CO-ENZYME Q10 50 MG CAP PO SCH (09:19)
[2016-10-07] MEDS: CYANOCOBALAMIN 500 MCG TAB PO SCH (09:19)
[2016-10-07] MEDS: LEVOTHYROXINE 100MCG TABLET (0.1MG) PO SCH (09:20)
[2016-10-07] MEDS: POTASSIUM CHLORIDE 10 MEQ SR TABLET PO SCH ×2 (09:20→21:12)
[2016-10-07] MEDS: NIFEdipine 60 MG XL TAB PO SCH ×2 (09:21→21:11)
[2016-10-07] MEDS: HEPARIN SOD (PORCINE) 5000 UNITS/ML VIAL SC SCH ×2 (09:21→21:10)
[2016-10-07] MEDS: NYSTATIN 500,000 U/5 ML SUSP UDC SS SCH ×4 (09:21→21:13)
[2016-10-07] MEDS: FOLIC ACID 1 MG TAB PO SCH (09:22)
[2016-10-07] MEDS: SERTRALINE HCL 50 MG TAB PO SCH (09:22)
[2016-10-07] MEDS: PANTOPRAZOLE 40MG TAB (PROTONIX) PO SCH (09:22)
[2016-10-07] MEDS: CALCIUM/VITAMIN D 500 MG TAB PO SCH ×2 (09:22→21:10)
[2016-10-07] MEDS: ACETAMINOPHEN 500 MG TAB PO PRN (09:28)
[2016-10-07] MEDS: methylPREDNISolone INJ 125 MG/2 ML VIAL (J2930) IV SCH ×2 (10:11→23:33)
[2016-10-07] MEDS: METOPROLOL TART 50 MG TAB PO SCH ×2 (10:12→21:11)
--- NOTE | 2016-10-07 12:13 | REP ---
Clinical: ARDS. Comparison: 10/06/2016. Findings: Bilateral infiltrates (right greater than left) are similar to prior examination. No obvious effusion. No pneumothorax. This time and cardiac silhouette stable. Left subclavian catheter with tip in the SVC unchanged. Skeletal structures intact. Impression: Bilateral opacities similar to prior examination. Signed by Bridger Mcclure MD 10/07/2016 08:16 A
--- NOTE | 2016-10-07 12:15 | IPN ---
DATE: 10/07/2016 This is now the 10th postoperative day for Mr. Howard. He has had a fairly stable night. He is spontaneously getting diuresed even in the face of increased volume intake. He was on CPAP all last night and we have taken him off the CPAP and put him on a VentiMask and for the past 2 hours, he has been stable and maintaining his saturations. His vital signs show a T-max of 100.6 with a heart rate that ranges between 78-90 in essentially sinus rhythm with occasional breakthrough paroxysmal atrial fibrillation. He is 95% saturated on 45% CPAP mask. He remains 90% saturated on the high flow nasal cannula and VentiMask. His blood pressure is ranging between 179/84 to 199/91. His intake and output over the past 24 hours has been recorded as 3155 in and 3900 out for a negativity of 745 mL. He has put out 3900 mL in urine output. He weighs 77.1 kg today compared to 81.2 kg yesterday. On physical examination, his left lung shows nearly normal vesicular sounds. Right lung shows inspiratory crackles through mid to late inspiration. These are fairly fine. Percussion note full to the diaphragm. Cardiac exam is without murmurs, clicks, gallops or rubs. I cannot feel his PMI. S1 and S2 are normal. Abdomen is soft, nontender, less tympanitic and distended today. Bowel sounds are positive. They are high pitched. There is no hepatomegaly. No CVA tenderness. Extremities show no pretibial edema. No calf tenderness. No differential swelling of the upper extremities. Skin is warm, dry and perfused without cyanosis or mottling including that of the nail beds and knees. Neck is supple. There is no jugular venous distention. No subcutaneous emphysema. Trachea is midline. Mouth shows his mucous membranes to be pink and moist. Lips and commissures are without lesions. There is less thrush today. Eyes show his pupils to be equal and reactive. Extraocular motor intact. Sclera anicteric. Neuro shows II through XII intact with gross motor and gross sensation intact. Gait is not tested. Psychiatric shows him to be awake and alert, oriented times three with appropriate mood and affect and conversational. His white count today is down to 13.5 from 15.2 yesterday. Hemoglobin and hematocrit are 13.4 and 41.3 with a platelet count of 288 and stable. Differential shows 89% neutrophils, 4% lymphocytes, 3% monocytes. There are no immature forms. No toxic granulations. His chemistries today show a sodium of 149 down from 152 yesterday. His potassium is 3.9 up from 3.3 yesterday. BUN and creatinine continue to improve down to 58 and 1.86 up from 62 and 2.03. Glucose is 200. His calcium is 8.4 with a corresponding albumin of 2.1 which continues to increase. Phosphorus is 4.0 and magnesium is 2.1 both within normal limits now. His chest x-ray shows the lung fully expanded to the chest wall. He still has the alveolar pattern on the right. It does look somewhat improved, however. IMPRESSION: 1. Postoperative day #10 status post left upper lobectomy. 2. 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 3. Chronic obstructive pulmonary disease (COPD). 4. Bilateral parotid tumors. 5. Hypothyroidism. 6. Hypertension. 7. Rheumatoid arthritis. 8. Gastroesophageal reflux disease. 9. Depression. 10. Postoperative pneumonia growing Enterobacter cloacae now on Zosyn. 11. Hypoxia. 12. Postoperative ileus resolving. 13. Preoperative immunosuppression secondary to methotrexate and prednisone for rheumatoid arthritis. 14. Hypermagnesemia resolved. 15. Hypokalemia resolved. 16. Hypernatremia improving. 17. Paroxysmal atrial fibrillation controlled. PLAN AND DISCUSSION: I am going to discontinue his free water today after the new bottle of hyperalimentation. I have only put in 40 mEq of sodium acetate into the hyperalimentation bottle. I am also going to give him oral potassium supplementation. Will change his IV Lopressor to oral Lopressor of 50 mg twice daily. I am going to stop his antibiotics. Right now it looks as though he is clinically getting better and while I am calling him with postoperative pneumonia, I am not absolutely sure because he only grew a couple of colonies of enterobacter. This may be an acute respiratory distress syndrome pattern. We never had a really good satisfactory explanation for his hypoxia. He is spontaneously diuresing and I am not going to give him any diuretics at this point in time. It should be noted that his urine osmolality was normal and he was not putting out dilute urine consistent with [place]'s disease.
[2016-10-07] MEDS: SODIUM CHLORIDE 0.9% INJ 10 ML SYR IV SCH ×2 (14:53→21:13)
[2016-10-07] MEDS ORDERED: [UNRECOGNIZED DRUG - OTHER] IV SCH ×8 (18:00)
[2016-10-07] MEDS ORDERED: SODIUM ACETATE IV SCH ×8 (18:00)
[2016-10-07] MEDS ORDERED: POTASSIUM CHLORIDE IV SCH ×8 (18:00)
[2016-10-07] MEDS ORDERED: FAT EMULSION IV 20% 500 ML IV SCH (18:00)
[2016-10-07] MEDS: SODIUM CHLORIDE 0.9% INJ 10 ML SYR IV PRN (23:35)
[2016-10-08] VITALS (8 sets, daily range): BP systolic 151–189; BP diastolic 77–85
[2016-10-08] MEDS: LEVALBUTEROL 1.25 MG/0.5 ML CONCENTRATE NEB NEB SCH ×4 (01:00→19:31)
[2016-10-08] MEDS: METOCLOPRAMIDE INJ 10MG/2ML VIAL (J2765) IV SCH ×3 (05:00→16:20)
[2016-10-08] MEDS: HumaLOG INSULIN (NovoLOG) PER UNIT SC SCH ×4 (05:11→21:00)
[2016-10-08] MEDS: SODIUM CHLORIDE 0.9% INJ 10 ML SYR IV SCH ×3 (05:12→21:01)
[2016-10-08 05:48] LABS: BASO # 0.1 K/mm3 (0.0-0.2); BASO % 0.6 % (0.0-1.0); EOS # 0.3 K/mm3 (0.0-0.50); EOS % 1.2 % (0.0-3.0); LARGE UNSTAINED CELL # 0.3 K/mm3 (0.0-0.4); LARGE UNSTAINED CELL % 1.2 % (0.0-4.0); LYMPH # 1.2 K/mm3 (1.5-4.5); LYMPH % 4.2 % (24.0-44.0); MEAN CORPUSCULAR HEMOGLOBIN 33.6 pg (27.0-33.0); MEAN CORPUSCULAR HGB CONC 32.9 g/dl (32.0-36.5); MEAN CORPUSCULAR VOLUME 102.1 fl (80.0-96.0); MONO # 0.5 K/mm3 (0.0-0.8); MONO % 2.3 % (0.0-5.0); NEUTROPHILS # 19.6 K/mm3 (1.8-7.7); NEUTROPHILS % 90.5 % (36.0-66.0); PLATELET COUNT, AUTOMATED 342 k/mm3 (150-450); RED CELL DISTRIBUTION WIDTH 15.5 % (11.5-14.5); WHITE BLOOD COUNT 21.7 K/mm3 (4.0-10.0)
[2016-10-08] MEDS: NIFEdipine 10 MG CAP PO SCH ×4 (06:00→23:23)
[2016-10-08 06:14] LABS: ALBUMIN 2.2 GM/DL (3.2-5.2); ALBUMIN/GLOBULIN RATIO 0.52 (1.00-1.93); BILIRUBIN,TOTAL 0.3 MG/DL (0.2-1.0); CALCIUM LEVEL 8.9 MG/DL (8.8-10.2); CREATININE FOR GFR 1.54 MG/DL (0.70-1.30); GLOMERULAR FILTRATION RATE 47.1 (>42); MAGNESIUM LEVEL 1.7 MG/DL (1.8-2.4); PHOSPHORUS LEVEL 4.2 MG/DL (2.5-4.9); TOTAL PROTEIN 6.4 GM/DL (6.4-8.2)
[2016-10-08 06:17] LABS: POTASSIUM SERUM 5.2 MEQ/L (3.5-5.1)
--- NOTE | 2016-10-08 07:40 | REP ---
Clinical: Status post left lobectomy. Comparison: 10/07/2016. Findings: Chronic interstitial changes are appreciated with superimposed infiltrate (right greater than left). Postsurgical changes involving the left hemithorax remains stable. No pneumothorax. Layering effusions cannot be excluded. Left subclavian catheter with tip in the SVC unchanged. Impression: Diffuse chronic interstitial and postsurgical changes. Superimposed infiltrate primarily involving the right mid to lower lung zone. Signed by Bridger Mcclure MD 10/08/2016 07:31 A
[2016-10-08] MEDS: MOM 30ML SUSPENSION UDC PO SCH (09:00)
[2016-10-08] MEDS: DOCUSATE SODIUM 100 MG CAP PO SCH ×2 (09:00→21:00)
[2016-10-08] MEDS: CYANOCOBALAMIN 500 MCG TAB PO SCH (09:12)
[2016-10-08] MEDS: NYSTATIN 500,000 U/5 ML SUSP UDC SS SCH ×4 (09:12→21:01)
[2016-10-08] MEDS: CALCIUM/VITAMIN D 500 MG TAB PO SCH ×2 (09:12→21:01)
[2016-10-08] MEDS: PANTOPRAZOLE 40MG TAB (PROTONIX) PO SCH (09:12)
[2016-10-08] MEDS: METOPROLOL TART 50 MG TAB PO SCH ×2 (09:12→21:00)
[2016-10-08] MEDS: FOLIC ACID 1 MG TAB PO SCH (09:12)
[2016-10-08] MEDS: SERTRALINE HCL 50 MG TAB PO SCH (09:12)
[2016-10-08] MEDS: CO-ENZYME Q10 50 MG CAP PO SCH (09:13)
[2016-10-08] MEDS: HEPARIN SOD (PORCINE) 5000 UNITS/ML VIAL SC SCH ×2 (09:13→21:01)
[2016-10-08] MEDS: methylPREDNISolone INJ 125 MG/2 ML VIAL (J2930) IV SCH ×2 (11:18→23:22)
[2016-10-08] MEDS: LEVOTHYROXINE 100MCG TABLET (0.1MG) PO SCH (11:18)
[2016-10-08] MEDS ORDERED: SODIUM ACETATE IV SCH ×6 (18:00)
[2016-10-08] MEDS ORDERED: HumaLOG INSULIN (NovoLOG) PER UNIT SC SCH (18:00)
[2016-10-08] MEDS ORDERED: [UNRECOGNIZED DRUG - OTHER] IV SCH ×6 (18:00)
[2016-10-08] MEDS ORDERED: FAT EMULSION IV 20% 500 ML IV SCH (18:00)
[2016-10-08] MEDS ORDERED: POTASSIUM CHLORIDE IV SCH ×6 (18:00)
[2016-10-08] MEDS: SODIUM CHLORIDE 0.9% INJ 10 ML SYR IV PRN (23:24)
[2016-10-09] VITALS (11 sets, daily range): BP systolic 155–196; BP diastolic 72–93; O2SAT 92–95
[2016-10-09] MEDS: LEVALBUTEROL 1.25 MG/0.5 ML CONCENTRATE NEB NEB SCH ×2 (01:11→07:09)
[2016-10-09] MEDS: NIFEdipine 10 MG CAP PO SCH ×4 (05:17→23:53)
[2016-10-09] MEDS: SODIUM CHLORIDE 0.9% INJ 10 ML SYR IV SCH ×3 (05:17→21:29)
[2016-10-09 05:42] LABS: BASO # 0.1 K/mm3 (0.0-0.2); BASO % 0.5 % (0.0-1.0); EOS # 0.1 K/mm3 (0.0-0.50); EOS % 0.5 % (0.0-3.0); LARGE UNSTAINED CELL # 0.2 K/mm3 (0.0-0.4); LARGE UNSTAINED CELL % 0.9 % (0.0-4.0); LYMPH # 1.1 K/mm3 (1.5-4.5); LYMPH % 4.4 % (24.0-44.0); MEAN CORPUSCULAR HGB CONC 32.5 g/dl (32.0-36.5); MEAN CORPUSCULAR VOLUME 101.6 fl (80.0-96.0); MONO # 0.6 K/mm3 (0.0-0.8); MONO % 2.9 % (0.0-5.0); NEUTROPHILS # 19.5 K/mm3 (1.8-7.7); NEUTROPHILS % 90.8 % (36.0-66.0); PLATELET COUNT, AUTOMATED 334 k/mm3 (150-450); RED CELL DISTRIBUTION WIDTH 15.5 % (11.5-14.5); WHITE BLOOD COUNT 21.5 K/mm3 (4.0-10.0)
[2016-10-09 06:03] LABS: ALBUMIN 2.3 GM/DL (3.2-5.2); ALBUMIN/GLOBULIN RATIO 0.55 (1.00-1.93); BILIRUBIN,TOTAL 0.3 MG/DL (0.2-1.0); CALCIUM LEVEL 8.7 MG/DL (8.8-10.2); CREATININE FOR GFR 1.52 MG/DL (0.70-1.30); GLOMERULAR FILTRATION RATE 47.8 (>42); MAGNESIUM LEVEL 2.2 MG/DL (1.8-2.4); PHOSPHORUS LEVEL 4.4 MG/DL (2.5-4.9); POTASSIUM SERUM 5.3 MEQ/L (3.5-5.1); TOTAL PROTEIN 6.5 GM/DL (6.4-8.2)
[2016-10-09] MEDS: NYSTATIN 500,000 U/5 ML SUSP UDC SS SCH ×4 (08:52→21:27)
[2016-10-09] MEDS: HEPARIN SOD (PORCINE) 5000 UNITS/ML VIAL SC SCH ×2 (08:52→21:28)
[2016-10-09] MEDS: CO-ENZYME Q10 50 MG CAP PO SCH (08:53)
[2016-10-09] MEDS: LEVOTHYROXINE 100MCG TABLET (0.1MG) PO SCH (08:53)
[2016-10-09] MEDS: FOLIC ACID 1 MG TAB PO SCH (08:53)
[2016-10-09] MEDS: METOPROLOL TART 50 MG TAB PO SCH ×2 (08:53→21:27)
[2016-10-09] MEDS: CYANOCOBALAMIN 500 MCG TAB PO SCH (08:53)
[2016-10-09] MEDS: SERTRALINE HCL 50 MG TAB PO SCH (08:53)
[2016-10-09] MEDS: PANTOPRAZOLE 40MG TAB (PROTONIX) PO SCH (08:53)
[2016-10-09] MEDS: CALCIUM/VITAMIN D 500 MG TAB PO SCH ×2 (08:53→21:27)
[2016-10-09] MEDS: DOCUSATE SODIUM 100 MG CAP PO SCH ×2 (08:54→21:00)
[2016-10-09] MEDS: MOM 30ML SUSPENSION UDC PO SCH (08:54)
[2016-10-09] MEDS: HumaLOG INSULIN (NovoLOG) PER UNIT SC SCH ×4 (08:54→21:00)
[2016-10-09] MEDS: methylPREDNISolone INJ 125 MG/2 ML VIAL (J2930) IV SCH ×2 (11:20→23:48)
[2016-10-09] MEDS: IPRATROPIUM 0.5MG/ALBUTEROL 2.5MG INH SOL UD 3ML (DUONEB)(J7620) NEB SCH ×2 (14:02→19:23)
--- NOTE | 2016-10-09 15:25 | REP ---
Clinical: Pneumonia. Technique: PA and lateral. Comparison: 10/08/2016. Findings: Right lower lobe opacities are similar to prior examination and suggest multifocal pneumonia. No obvious effusion. No pneumothorax. Mediastinum and cardiac silhouette stable. Left subclavian catheter with tip in the SVC. Skeletal structures intact. Impression: Left lower lobe infiltrates similar to prior examination. Signed by Bridger Mcclure MD 10/09/2016 03:17 P
--- NOTE | 2016-10-09 19:02 | IPN ---
DATE: 10/09/2016 This is now the 12th postoperative day for Mr. Howard. He is gradually getting better. He has now been off his CPAP mask for over 36 hours. He remains on a high flow cannula. He states that he is breathing comfortably. He has been up in a chair all morning and I am going to send him down for a proper chest x-ray, PA and lateral view. His vital signs show a T-max of 98.1 with a heart rate that ranges between 79 and 67 in a sinus rhythm with a respiratory rate of 22-26 without the use of accessory muscles who is 92-93% saturated on 15 liters of high flow nasal cannula. His blood pressure is ranging between 196-93 to 174/86. His intake and output over the past 24 hours has been recorded as 2880 in and 2900 out for near equality. He has put out 2900 mL in urine output. He has had 900 mL in oral intake. The remainder via hyperalimentation. On physical examination, he still has a high pitched almost Velcro crackles in the right lung. He has more rhonchi in the left lung. Most of this clears with coughing. Percussion note full to the diaphragm. Cardiac exam is without murmurs, clicks, gallops or rubs. I cannot feel his PMI. S1 and S2 are normal. Abdomen is soft, nontender. Bowel sounds are positive. There is no hepatomegaly. No CVA tenderness. Extremities show no pretibial edema. No calf tenderness. No differential swelling of the upper extremities. Skin is warm, dry and perfused without cyanosis or mottling including that of the nail beds and knees. Neck is supple. There is no jugular venous distention. No subcutaneous emphysema. Trachea is midline. Mouth shows his mucous membranes to be pink and moist. Lips and commissures are without lesions. No thrush. Eyes show his pupils to be equal and reactive. Extraocular motor intact. Sclera anicteric. Neuro shows II through XII intact with gross motor and gross sensation intact. Gait is not tested. Psychiatric shows him to be awake and alert, oriented times three with appropriate mood and affect and conversational. His white count today still continues at 21.5, essentially unchanged from yesterday with a hemoglobin and hematocrit of 14.2 and 43.6 up from 13.8 and 42.9 yesterday. Platelet count is 334 and stable. Differential shows 90% neutrophils, 4% lymphocytes, 3% monocytes. There are no immature forms. No toxic granulations. His chemistries today show a potassium of 5.3 with a sodium that has now normalized to 142. BUN and creatinine are 56 and 1.52, continued to improve. Glucose is 298 with a calcium is 8.7 and corresponding albumin of 2.3. AST and ALT are improving to 22 and 77 respectively. His chest x-ray is pending today. IMPRESSION: 1. Postoperative day #12 status post left upper lobectomy. 2. 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 3. Chronic obstructive pulmonary disease (COPD). 4. Bilateral parotid tumors. 5. Hypothyroidism. 6. Hypertension. 7. Rheumatoid arthritis. 8. Gastroesophageal reflux disease. 9. Depression. 10. Possible postoperative pneumonia growing Enterobacter cloacae of only a few colonies, previously on Zosyn now discontinued. 11. Hypoxia. 12. Postoperative ileus resolved. 13. Preoperative immunosuppression secondary to methotrexate and prednisone for rheumatoid arthritis. 14. Hypermagnesemia resolved. 15. Hypokalemia resolved probably secondary to hyperalimentation 16. Hypernatremia, normalized. 17. Paroxysmal atrial fibrillation. 18. Methotrexate lung toxicity. PLAN AND DISCUSSION: As noted in yesterdays note, I am becoming more convinced that this is secondary to Methotrexate along with one lung ventilation and higher oxygen concentrations. Even though he grew out Enterobacter cloacae from his sputum, it was only a few cultures and the tiny postoperative pneumonia, ie on the first postoperative day, just did not make a lot of sense. None the less it was all we had to go by and we treated him. We discontinued the antibiotics 2 days ago. I think that the next strategy is supportive care until he can recover from the Methotrexate toxicity. I will keep him in the intensive care unit for the next couple of days before transferring him out. I will discontinue his hyperailmentation. I encouraged by mouth intake.
[2016-10-10] VITALS (11 sets, daily range): BP systolic 136–176; BP diastolic 70–83; O2SAT 94–98
[2016-10-10] MEDS: IPRATROPIUM 0.5MG/ALBUTEROL 2.5MG INH SOL UD 3ML (DUONEB)(J7620) NEB SCH ×4 (01:22→19:29)
[2016-10-10] MEDS: NIFEdipine 10 MG CAP PO SCH ×4 (05:45→23:57)
[2016-10-10] MEDS: SODIUM CHLORIDE 0.9% INJ 10 ML SYR IV SCH ×3 (05:46→21:15)
[2016-10-10 05:48] LABS: BASO # 0.1 K/mm3 (0.0-0.2); BASO % 0.3 % (0.0-1.0); EOS # 0.1 K/mm3 (0.0-0.50); EOS % 0.3 % (0.0-3.0); LARGE UNSTAINED CELL # 0.2 K/mm3 (0.0-0.4); LARGE UNSTAINED CELL % 0.6 % (0.0-4.0); LYMPH # 1.2 K/mm3 (1.5-4.5); LYMPH % 4.6 % (24.0-44.0); MEAN CORPUSCULAR HEMOGLOBIN 33.4 pg (27.0-33.0); MEAN CORPUSCULAR HGB CONC 33.6 g/dl (32.0-36.5); MEAN CORPUSCULAR VOLUME 99.3 fl (80.0-96.0); MONO # 0.7 K/mm3 (0.0-0.8); MONO % 2.9 % (0.0-5.0); NEUTROPHILS # 21.3 K/mm3 (1.8-7.7); NEUTROPHILS % 91.2 % (36.0-66.0); PLATELET COUNT, AUTOMATED 316 k/mm3 (150-450); RED CELL DISTRIBUTION WIDTH 15.3 % (11.5-14.5); WHITE BLOOD COUNT 23.3 K/mm3 (4.0-10.0)
[2016-10-10 06:15] LABS: ALBUMIN 2.3 GM/DL (3.2-5.2); ALBUMIN/GLOBULIN RATIO 0.55 (1.00-1.93); BILIRUBIN,TOTAL 0.3 MG/DL (0.2-1.0); CALCIUM LEVEL 9.1 MG/DL (8.8-10.2); CREATININE FOR GFR 1.58 MG/DL (0.70-1.30); GLOMERULAR FILTRATION RATE 45.7 (>42); PHOSPHORUS LEVEL 5.4 MG/DL (2.5-4.9); TOTAL PROTEIN 6.5 GM/DL (6.4-8.2)
[2016-10-10 06:17] LABS: POTASSIUM SERUM 5.3 MEQ/L (3.5-5.1)
--- NOTE | 2016-10-10 08:03 | REP ---
Clinical: Interstitial disease. Technique: PA and lateral. Comparison: 09/28/2016. Findings: Mediastinum and cardiac silhouette are stable. Left subclavian catheter with tip in the SVC. Lung hernandez demonstrate chronic interstitial changes with continued superimposed right lower lobe opacities. No obvious effusion. No pneumothorax. Skeletal structures intact. Impression: Continued right lower lobe opacities with underlying chronic interstitial changes. Signed by Bridger Mcclure MD 10/10/2016 07:54 A
[2016-10-10] MEDS: CO-ENZYME Q10 50 MG CAP PO SCH (08:24)
[2016-10-10] MEDS: LEVOTHYROXINE 100MCG TABLET (0.1MG) PO SCH (08:24)
[2016-10-10] MEDS: CYANOCOBALAMIN 500 MCG TAB PO SCH (08:24)
[2016-10-10] MEDS: METOPROLOL TART 50 MG TAB PO SCH ×2 (08:25→21:16)
[2016-10-10] MEDS: SERTRALINE HCL 50 MG TAB PO SCH (08:25)
[2016-10-10] MEDS: FOLIC ACID 1 MG TAB PO SCH (08:25)
[2016-10-10] MEDS: PANTOPRAZOLE 40MG TAB (PROTONIX) PO SCH (08:25)
[2016-10-10] MEDS: HEPARIN SOD (PORCINE) 5000 UNITS/ML VIAL SC SCH ×2 (08:26→21:15)
[2016-10-10] MEDS: NYSTATIN 500,000 U/5 ML SUSP UDC SS SCH ×4 (08:26→21:15)
[2016-10-10] MEDS: DOCUSATE SODIUM 100 MG CAP PO SCH ×2 (08:26→21:00)
[2016-10-10] MEDS: HumaLOG INSULIN (NovoLOG) PER UNIT SC SCH ×4 (08:27→21:00)
[2016-10-10] MEDS: MOM 30ML SUSPENSION UDC PO SCH (08:37)
[2016-10-10] MEDS: CALCIUM/VITAMIN D 500 MG TAB PO SCH ×2 (08:42→21:16)
[2016-10-10] MEDS: methylPREDNISolone INJ 125 MG/2 ML VIAL (J2930) IV SCH ×2 (11:50→23:52)
[2016-10-11] VITALS (12 sets, daily range): BP systolic 152–215; BP diastolic 66–94; O2SAT 96–97
[2016-10-11] MEDS: IPRATROPIUM 0.5MG/ALBUTEROL 2.5MG INH SOL UD 3ML (DUONEB)(J7620) NEB SCH ×4 (01:48→19:53)
[2016-10-11] MEDS: NIFEdipine 10 MG CAP PO SCH ×4 (05:47→23:52)
[2016-10-11] MEDS: SODIUM CHLORIDE 0.9% INJ 10 ML SYR IV SCH ×3 (05:47→21:03)
[2016-10-11 06:24] LABS: BASO # 0.1 K/mm3 (0.0-0.2); BASO % 0.3 % (0.0-1.0); EOS # 0.1 K/mm3 (0.0-0.50); EOS % 0.4 % (0.0-3.0); LARGE UNSTAINED CELL # 0.1 K/mm3 (0.0-0.4); LARGE UNSTAINED CELL % 0.6 % (0.0-4.0); LYMPH # 1.2 K/mm3 (1.5-4.5); LYMPH % 5.1 % (24.0-44.0); MEAN CORPUSCULAR HEMOGLOBIN 33.8 pg (27.0-33.0); MEAN CORPUSCULAR HGB CONC 33.9 g/dl (32.0-36.5); MEAN CORPUSCULAR VOLUME 99.7 fl (80.0-96.0); MONO # 0.5 K/mm3 (0.0-0.8); MONO % 2.2 % (0.0-5.0); NEUTROPHILS # 19.6 K/mm3 (1.8-7.7); NEUTROPHILS % 91.5 % (36.0-66.0); PLATELET COUNT, AUTOMATED 352 k/mm3 (150-450); RED CELL DISTRIBUTION WIDTH 15.4 % (11.5-14.5); WHITE BLOOD COUNT 21.4 K/mm3 (4.0-10.0)
--- NOTE | 2016-10-11 06:24 | IPN ---
DATE: 10/08/2016 This note was previously dictated on the above date but cannot be found in the system. This is now the 11th postoperative day for Mr. Howard. He has been weaned to nasal cannula 15 liters per minute. With that, his vital signs show a T-max of 98.9 with a heart rate that ranges between 72-104 punctuated with intermittent burst of atrial fibrillation. His respiratory rate is 24-28 without the use of accessory muscles and he is 81-95% saturated on 15 liters nasal cannula. Earlier this morning, throughout the night, he was on CPAP. We have just weaned him off this this morning on the high flow nasal cannula. His intake and output over the past 24 hours has been recorded as 4355 in and 3195 out for a positivity of 1160 mL. He has taken 900 mL in oral intake and remainder has been by hyperalimentation. He has put out 3195 mL in urine. He weighs 77.1 kg which is the same as yesterday of 77.1 kg. On physical examination, his lungs show fine crackles in the right lower lobe. I hear no wheezes but on top of the fine crackles, there are coarse rhonchi particularly on the right side. Most of the coarse crackles clear with coughing. Percussion note is full to the diaphragm. Cardiac exam is without murmurs, clicks, gallops or rubs. I cannot feel his PMI. S1 and S2 are normal. Abdomen is soft, nontender, bowel sounds are positive. There is no hepatomegaly. No CVA tenderness. Extremities show no pretibial edema. No calf tenderness. No differential swelling of the upper extremities. Skin is warm, dry and perfused without cyanosis or mottling including that of the nail beds and knees. Neck is supple. There is no jugular venous distention. No subcutaneous emphysema. Trachea is midline. Mouth shows his mucous membranes to be pink and moist. Lips and commissures are without lesions. Thrush is diminishing. Eyes show his pupils to be equal and reactive. Extraocular motor intact. Sclera anicteric. Neuro shows II through XII intact with gross motor and gross sensation intact. Gait is not tested. Psychiatric shows him to be awake and alert, oriented times three with appropriate mood and affect and conversational. His white count today is 21.7 up from 13.5 yesterday. We did start higher dose steroids of Solu-Medrol at 80 mg every 12 hours. His hemoglobin and hematocrit are 13.8 and 42.0 respectively with a platelet count of 342 and stable. Differential shows 98% neutrophils, 4% lymphocytes, 2% monocytes. There are no immature forms, no toxic granulations. His chemistries show a sodium of 147 which is decreased from 149 yesterday with a potassium of 5.2. Total CO2 is 30. His BUN and creatinine are 57 and 1.54 down from 58 and 1.86 yesterday. Glucose is 287. Calcium is 8.9 with a corresponding albumin of 2.2. Phosphorus has normalized now to 4.2. His magnesium is 1.7. AST and ALT are 36 and 121 respectively. Albumin is 2.2. His chest x-ray today shows the lung fully expanded to the chest wall. It is done portably and there still looks to be a right lower lobe infiltrate. Costophrenic angles are sharp. Volumes look equal on either side even though he has undergone a left sided lobectomy. IMPRESSION: 1. Postoperative day #11 status post left upper lobectomy. 2. Squamous cell carcinoma left upper lobe stage [id number]. 3. Chronic obstructive pulmonary disease (COPD). 4. Bilateral parotid tumors. 5. Hypothyroidism. 6. Hypertension. 7. Rheumatoid arthritis. 8. Gastroesophageal reflux disease. 9. Depression. 10. Hypoxia. 11. Postoperative ileus resolved. 12. Preoperative immunosuppression secondary to methotrexate on prednisone for rheumatoid arthritis. 13. Hypermagnesemia resolved now hypomagnesemic. 14. Hypokalemia resolved. 15. Hypernatremia, normalized. 16. Paroxysmal atrial fibrillation. 17. Methotrexate lung toxicity. PLAN AND DISCUSSION: All along, I have been treating him for a postoperative pneumonia. Postoperative pneumonia concourse has never made clinical sense in that it appeared within 24 hours of surgery. Nonetheless, he did grow a few colonies of Enterobacter cloacae and we have been treating him for that culture result. I am beginning to think that it was never postoperative pneumonia but rather methotrexate toxicity. This would have been exacerbated by one lung anesthesia with both increased pressures and increased FiO2. There was one point in time we did have some trouble keeping him saturated and we had placed him on both CPAP and 100% oxygen during the procedure. We have now started high dose steroids. The natural course of methotrexate lung toxicity is slow but usually reversible with the patient recovering. We will continue him with supportive respiratory care for oxygenation. He has never had a problem with ventilation. MTDD
[2016-10-11 06:40] LABS: ALBUMIN 2.4 GM/DL (3.2-5.2); ALBUMIN/GLOBULIN RATIO 0.57 (1.00-1.93); BILIRUBIN,TOTAL 0.4 MG/DL (0.2-1.0); CALCIUM LEVEL 9.3 MG/DL (8.8-10.2); CREATININE FOR GFR 1.59 MG/DL (0.70-1.30); GLOMERULAR FILTRATION RATE 45.4 (>42); MAGNESIUM LEVEL 1.9 MG/DL (1.8-2.4); PHOSPHORUS LEVEL 4.8 MG/DL (2.5-4.9); TOTAL PROTEIN 6.6 GM/DL (6.4-8.2)
[2016-10-11 06:44] LABS: POTASSIUM SERUM 5.3 MEQ/L (3.5-5.1)
--- NOTE | 2016-10-11 07:03 | IPN ---
DATE: 10/10/2016 This is now the 13th postoperative day for Mr. Howard. He is sitting comfortably in a chair and he has been down to x-ray. He got a bit short of breath coming back from x-ray, was able to continue his walk. He continues on 15 liters nasal cannula. He is now approximately 72 hours without CPAP. He is starting to take good oral intake. His vital signs show a T-max of 98.3 with a heart rate that ranges between 61-70 in a sinus rhythm. Respiratory rate is 17-24 without the use of accessory muscles and he is 99-89 saturated on 15 liters nasal cannula. His blood pressure is ranging between 176/83 to 136/75. His intake and output over the past 24 hours has been recorded as 2240 in and 2690 out for a negativity of 450 mL without diuresis. He has taken in 720 mL in oral intake and 1520 mL in IV intake most of which is accounted for by hyperalimentation. PHYSICAL EXAMINATION: His lungs show fine crackles on the right side during inspiration. I hear no course rhonchi. His left lung shows normal vesicular sounds. Percussion note is full to the diaphragm. Cardiac exam is without murmurs, clicks, gallops or rubs. I cannot feel his PMI. S1 and S2 are normal. Abdomen is soft, nontender, bowel sounds are positive. There is no hepatomegaly. No CVA tenderness. It is not distended. Extremities show no pretibial edema. No calf tenderness. No differential swelling of the upper extremities. Skin is warm, dry and perfused without cyanosis or mottling including that of the nail beds and knees. Neck is supple. There is no jugular venous distention. No subcutaneous emphysema. Trachea is midline. Mouth shows his mucous membranes to be pink and moist. Lips and commissures are without lesions. No thrush. Eyes show his pupils to be equal and reactive. Extraocular motor intact. Sclera anicteric. Neuro shows II through XII intact with gross motor and gross sensation intact. Gait is not tested. Psychiatric shows him to be awake and alert, oriented times three with appropriate mood and affect and conversational. His white count today is essentially unchanged from the last three days being 23.3 although has increased from 21.5 yesterday. Hemoglobin and hematocrit are 13.5 and 40.2. Platelet count is 316 and stable and differential shows 91% neutrophils, 4% lymphocytes. His chemistries show a sodium of 142 with potassium that is marginally elevated at 5.3. BUN and creatinine are slightly worse at 61 and 1.58 from 56 and 1.52 yesterday. Glucose is 173 and his phosphorus is up to 5.4. Calcium is 9.1. AST and ALT have normalized and his albumin is 6.5. His chest x-ray today shows again the lung fully expanded to the chest wall. It is done PA lateral today down stairs. His left lung is clear. Costophrenic angles are sharp. It is still showing the right lower lobe infiltrative pattern. There is no subcutaneous emphysema. There is a slight midline shift paradoxically to the right and I suspect that is secondary to volume loss from the infiltrative pattern on the right lower lobe. Lateral film confirms the infiltrative process looking more anterior. IMPRESSION: 1. Postoperative day #13 status post left lower lobectomy. 2. Methotrexate lung toxicity. 3. Squamous cell carcinoma left upper lobe stage [id number]. 4. Chronic obstructive pulmonary disease (COPD). 5. Bilateral parotid tumors. 6. Hypothyroidism. 7. Hypertension. 8. Rheumatoid arthritis. 9. Gastroesophageal reflux disease. 10. Depression. 11. Hypoxia. 12. Postoperative ileus resolved. 13. Preoperative immunosuppression secondary to methotrexate and prednisone for rheumatoid arthritis. 14. Hypermagnesemia resolved. 15. Hypokalemia resolved, not slightly hyperkalemic. 16. Hypernatremia resolved. 17. Paroxysmal atrial fibrillation. PLAN AND DISCUSSION: I am gratified that Mr. Howard is doing better today. He is making show inch by inch progress. I do suspect that this is going to be a very long time. We will try to get him down to 10 liters nasal cannula today. If we can do that, then he may be eligible for home care. We are going to continue to watch him very carefully. I did send a sputum culture off yesterday that has not returned. His Clostridium difficile was returned on 10/07 and 10/06 both of which are negative. I have stopped antibiotics a number of days ago. I am going to assign his leukocytosis to the Solu-Medrol. I will change him from Solu-Medrol to prednisone in the a.m.
[2016-10-11] MEDS: NYSTATIN 500,000 U/5 ML SUSP UDC SS SCH ×2 (08:05→12:09)
[2016-10-11] MEDS: CYANOCOBALAMIN 500 MCG TAB PO SCH (08:05)
[2016-10-11] MEDS: HumaLOG INSULIN (NovoLOG) PER UNIT SC SCH ×4 (08:05→21:00)
[2016-10-11] MEDS: HEPARIN SOD (PORCINE) 5000 UNITS/ML VIAL SC SCH ×2 (08:05→20:54)
[2016-10-11] MEDS: SERTRALINE HCL 50 MG TAB PO SCH (08:06)
[2016-10-11] MEDS: METOPROLOL TART 50 MG TAB PO SCH ×2 (08:06→20:53)
[2016-10-11] MEDS: predniSONE 20 MG TAB PO SCH ×2 (08:06→20:53)
[2016-10-11] MEDS: PANTOPRAZOLE 40MG TAB (PROTONIX) PO SCH (08:06)
[2016-10-11] MEDS: FOLIC ACID 1 MG TAB PO SCH (08:06)
[2016-10-11] MEDS: CALCIUM/VITAMIN D 500 MG TAB PO SCH ×2 (08:06→20:55)
[2016-10-11] MEDS: CO-ENZYME Q10 50 MG CAP PO SCH (08:07)
[2016-10-11] MEDS: MOM 30ML SUSPENSION UDC PO SCH (08:07)
[2016-10-11] MEDS: DOCUSATE SODIUM 100 MG CAP PO SCH ×2 (08:07→19:28)
--- NOTE | 2016-10-11 08:26 | REP ---
Clinical: ARDS. Comparison: 10/10/2016. Findings: Mediastinum and cardiac silhouette stable. Subclavian catheter with tip in the SVC. Lung hernandez demonstrate diffuse chronic interstitial changes with superimposed right lower lobe infiltrate essentially unchanged. Small layering effusion cannot be excluded. No pneumothorax. Skeletal structures intact. Impression: Chronic changes with superimposed right lower lobe infiltrate similar to prior examination. Signed by Bridger Mcclure MD 10/11/2016 08:18 A
--- NOTE | 2016-10-11 10:52 | IPN ---
DATE: 10/11/2016 Mr. Howard is now down to 5 liters nasal cannula high flow. He has been weaned from 15 to 10 to now down to 5. He is still short of breath with activity going down to x-ray but continues to improve. His vital signs show a T-max of 98.8 with a heart rate that ranges between 58-60 in a sinus rhythm, respiratory rate of 18-22 without the use of accessory muscles who is 93-96% saturated on 5 liters nasal cannula. Blood pressure is 155/66 to 172/75. His intake and output over the past 24 hours again shows spontaneous diuresis with his intake being 1237 in and 2285 out for a negativity of 1078 mL. His urine output has been 2285 mL spontaneously. Weight today is 78.9 kg compared to 82 kg yesterday. On physical examination, he still has fine rales and crackles in the right lower hemithorax. Left lung shows some coarse rhonchi which clear with coughing. Percussion notes are full to the diaphragm. Cardiac exam is without murmurs, clicks, gallops or rubs. I cannot feel his PMI. S1 and S2 are normal. Abdomen is soft, nontender, bowel sounds are positive. He is slightly distended and tympanic. There is no CVA tenderness and no hepatomegaly. Extremities show no pretibial edema. No calf tenderness. No differential swelling of the upper extremities. Skin is warm, dry and perfused without cyanosis or mottling including that of the nail beds and knees. Neck is supple. There is no jugular venous distention. No subcutaneous emphysema. Trachea is midline. Mouth shows his mucous membranes to be pink and moist. Lips and commissures are without lesions. No thrush. Eyes show his pupils to be equal and reactive. Extraocular motor intact. Sclera anicteric. Neuro shows II through XII intact with gross motor and gross sensation intact. Gait is not tested. Psychiatric shows him to be awake and alert, oriented times three with appropriate mood and affect and conversational. His white count today is 21.4 down from 23.3 yesterday. I am again subscribing that to his steroids. Hemoglobin and hematocrit are 13.5 and 40.2 respectively with a platelet count of 352. Differential shows 91% neutrophils, 5% lymphocytes, 2% monocytes. There are no immature forms. No toxic granulations. His electrolytes are normal with a marginally high potassium at 5.3 which is unchanged over the last 3 days. BUN and creatinine are 67 and 1.59 essentially unchanged from yesterday with a glucose of 166 and a calcium of 9.3. Corresponding albumin is now up to 2.4 probably secondary to hemoconcentration. AST and ALT are normal. His chest x-ray is essentially unchanged from yesterday and still showing the right lower lobe infiltrative pattern. Costophrenic angles are sharp. IMPRESSION: 1. Postoperative day #14 status post left lower lobectomy. 2. Methotrexate lung toxicity. 3. 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 4. Chronic obstructive pulmonary disease (COPD). 5. Bilateral parotid tumors. 6. Hypothyroidism. 7. Hypertension. 8. Rheumatoid arthritis. 9. Gastroesophageal reflux disease. 10. Depression. 11. Hypoxia. 12. Postoperative ileus resolved. 13. Preoperative immunosuppression secondary to methotrexate and prednisone for rheumatoid arthritis. 14. Hypermagnesemia. 15. Hyperkalemia unchanged. 16. Hypernatremia resolved. 17. Renal insufficiency improving. 18. Paroxysmal atrial fibrillation. PLAN AND DISCUSSION: As noted before, I initially was treating him for postoperative pneumonia which did not have a usual course and presentation having presented itself within 24 hours of surgery. My current thinking along with pulmonology is that this is really methotrexate toxicity exacerbated by one lung anesthesia and high oxygen concentrations. I am gratified not that he looks to be getting better with decreasing oxygen requirements. Our next gus will be to undertake mobilization and rehabilitation. We can actually start thinking of sending him home within the week if he will rehab. He is going to need oxygen at home and he may need to increase the oxygen flow during mobilization. I am going to transfer him the progressive care unit (PCU) today and discontinue his Castelan catheter. I have changed him from Solu-Medrol to prednisone and we are going to start weaning the prednisone per Dr. Zapata.
[2016-10-11] MEDS: LEVOTHYROXINE 100MCG TABLET (0.1MG) PO SCH (12:08)
[2016-10-11] MEDS: ACETAMINOPHEN 500 MG TAB PO PRN (16:03)
[2016-10-11] MEDS ORDERED: PERCOCET 5MG/325MG TAB PO PRN (17:45)
[2016-10-12] VITALS (7 sets, daily range): BP systolic 135–184; BP diastolic 73–83
[2016-10-12] MEDS: IPRATROPIUM 0.5MG/ALBUTEROL 2.5MG INH SOL UD 3ML (DUONEB)(J7620) NEB SCH ×4 (01:30→19:35)
[2016-10-12] MEDS: NIFEdipine 10 MG CAP PO SCH ×3 (05:11→17:26)
[2016-10-12] MEDS: SODIUM CHLORIDE 0.9% INJ 10 ML SYR IV SCH ×3 (05:11→21:45)
[2016-10-12 05:46] LABS: BASO % 0.2 % (0.0-1.0); EOS % 0.2 % (0.0-3.0); LARGE UNSTAINED CELL # 0.1 K/mm3 (0.0-0.4); LARGE UNSTAINED CELL % 0.6 % (0.0-4.0); LYMPH # 1.2 K/mm3 (1.5-4.5); LYMPH % 5.2 % (24.0-44.0); MEAN CORPUSCULAR HEMOGLOBIN 33.2 pg (27.0-33.0); MEAN CORPUSCULAR HGB CONC 33.8 g/dl (32.0-36.5); MEAN CORPUSCULAR VOLUME 98.1 fl (80.0-96.0); MONO # 0.9 K/mm3 (0.0-0.8); MONO % 4.4 % (0.0-5.0); NEUTROPHILS # 18.2 K/mm3 (1.8-7.7); NEUTROPHILS % 89.5 % (36.0-66.0); PLATELET COUNT, AUTOMATED 352 k/mm3 (150-450); RED CELL DISTRIBUTION WIDTH 15.2 % (11.5-14.5); WHITE BLOOD COUNT 20.3 K/mm3 (4.0-10.0)
[2016-10-12 06:06] LABS: CALCIUM LEVEL 9.4 MG/DL (8.8-10.2); CREATININE FOR GFR 1.46 MG/DL (0.70-1.30); GLOMERULAR FILTRATION RATE 50.1 (>42); PHOSPHORUS LEVEL 4.6 MG/DL (2.5-4.9); POTASSIUM SERUM 4.5 MEQ/L (3.5-5.1)
[2016-10-12 06:07] LABS: ALBUMIN 2.5 GM/DL (3.2-5.2); ALBUMIN/GLOBULIN RATIO 0.58 (1.00-1.93); BILIRUBIN,TOTAL 0.4 MG/DL (0.2-1.0); MAGNESIUM LEVEL 2.3 MG/DL (1.8-2.4); TOTAL PROTEIN 6.8 GM/DL (6.4-8.2)
[2016-10-12] MEDS: HumaLOG INSULIN (NovoLOG) PER UNIT SC SCH ×4 (07:30→21:44)
--- NOTE | 2016-10-12 08:45 | REP ---
Clinical: ARDS. Technique: PA and lateral. Comparison: 10/11/2016. Findings: Mediastinum and cardiac silhouette stable. Lung hernandez are unchanged with continued right lower lobe infiltrate and underlying chronic interstitial changes again noted. No new acute process identified. Skeletal structures intact. Impression: No significant change from prior examination. Continued evidence for right lower lobe infiltrate. Signed by Bridger Mcclure MD 10/12/2016 08:37 A
[2016-10-12] MEDS: DOCUSATE SODIUM 100 MG CAP PO SCH ×2 (09:00→21:45)
[2016-10-12] MEDS: MOM 30ML SUSPENSION UDC PO SCH (09:00)
[2016-10-12] MEDS: HEPARIN SOD (PORCINE) 5000 UNITS/ML VIAL SC SCH ×2 (09:16→21:13)
[2016-10-12] MEDS: LEVOTHYROXINE 100MCG TABLET (0.1MG) PO SCH (09:16)
[2016-10-12] MEDS: CYANOCOBALAMIN 500 MCG TAB PO SCH (09:17)
[2016-10-12] MEDS: predniSONE 20 MG TAB PO SCH (09:17)
[2016-10-12] MEDS: CALCIUM/VITAMIN D 500 MG TAB PO SCH ×2 (09:18→21:13)
[2016-10-12] MEDS: METOPROLOL TART 50 MG TAB PO SCH ×2 (09:18→21:13)
[2016-10-12] MEDS: PANTOPRAZOLE 40MG TAB (PROTONIX) PO SCH (09:19)
[2016-10-12] MEDS: FOLIC ACID 1 MG TAB PO SCH (09:19)
[2016-10-12] MEDS: SERTRALINE HCL 50 MG TAB PO SCH (09:19)
[2016-10-12] MEDS: CO-ENZYME Q10 50 MG CAP PO SCH (09:21)
--- NOTE | 2016-10-12 14:09 | IPN ---
DATE: 10/12/2016 Mr. Howard continues to do well. He is down to 5 liters nasal cannula. On that, he is 95 to 97% saturated. He is starting to get up out of bed. Although yesterday when trying to walk, he became a bit dizzy and was therefore placed back in bed. His vital signs show a maximum temperature (t-max) of 99.1 with a heart rate that ranges between 60 and 61 in a sinus rhythm, respiratory rate of 19 to 23 without the use of accessory muscles who is 95 to 97% saturated on 5 liters nasal cannula and now down to 4 liters nasal cannula. His intake and output over the past 24 hours has been recorded as 990 in and 1875 out for a negativity of 885 mL. He still continues to spontaneously diurese. His weight today is 84.5 kg compared to 78.9 kg yesterday. I suspect that weight is spurious. PHYSICAL EXAMINATION LUNGS: His lungs show equal breath sounds on either side. He still has the fine crackles in the right lower hemithorax. Percussion note is full to the diaphragm. CARDIAC EXAM: Without murmurs, clicks, gallops or rubs. I cannot feel his point of maximum impulse (PMI). S1, S2 are normal. ABDOMEN: Soft, nontender. Bowel sounds positive. There is no hepatomegaly. No costovertebral angle tenderness. EXTREMITIES: Show no pretibial edema. No calf tenderness. No differential swelling of the upper extremities. SKIN: Warm, dry and perfused without cyanosis or mottling, including that of the nail beds and knees. NECK: Supple. There is no jugular venous distention. No subcutaneous emphysema. Trachea is midline. MOUTH: Shows his mucous membranes to be pink and moist. Lips and commissures without lesions. There is no thrush. EYES: Show his pupils to be equal and reactive. Extraocular motion intact. Sclerae nonicteric. NEUROLOGIC: Shows II through XII intact with gross motor and gross sensation intact. Gait is not tested. PSYCHIATRIC: Shows him to be awake and alert, oriented times three with appropriate mood and affect and conversational. His white count today is 21.3, which continues to slowly go down. Hemoglobin and hematocrit are 13.7 and 40.4 respectively with a platelet count of 352. Differential shows 89% neutrophils, 5% lymphocytes, 4% monocytes. There are no immature forms. No toxic granulations. His electrolytes are normal with both a normal sodium and a normal potassium of 4.5. BUN and creatinine continues to slowly improve to 70 and 1.46. Glucose is 144 with a phosphorous of 4.6 and a calcium of 9.5 with a corresponding albumin of 2.5. His chest x-ray still shows the right lower lobe infiltrative process, but it looks to be clearing. I can see the costophrenic angles sharply. The mediastinum is in the midline. Left lung looks clear. Central line is in good place. IMPRESSION: 1. Postoperative day #15 status post left lower lobectomy. 2. Methotrexate lung toxicity. 3. Squamous cell carcinoma of the left upper lobe stage 1AT1b N0M0. 4. Chronic obstructive pulmonary disease (COPD). 5. Bilateral parotid tumors. 6. Hypothyroidism. 7. Hypertension. 8. Rheumatoid arthritis. 9. Gastroesophageal reflux disease. 10. Depression. 11. Hypoxia. 12. Postoperative ileus, resolved. 13. Preoperative immunosuppression secondary to methotrexate and prednisone for rheumatoid arthritis. 14. Hypermagnesemia, resolved. 15. Hyperkalemia, resolved. 16. Hypernatremia resolved. 17. Renal insufficiency, improving. 18. Paroxysmal atrial fibrillation without recent episode. PLAN AND DISCUSSION: I am very gratified with his progress. I wrote progressive care unit (PCU) orders yesterday and I have asked the production department supervisor to transfer the patient to PCU today. Our main modality of treatment at this point in time is ambulation and mobilization. While I am sure he will be going home on supplemental oxygen, he is now down to a point where that can happen. I suspect that he is going to have at least another 5 to 7 days of physical rehabilitation in order to mobilize and become independent. Dr. Zapata is going to continue to wean his steroids.
[2016-10-13] MEDS: NIFEdipine 10 MG CAP PO SCH ×5 (00:09→23:50)
[2016-10-13] MEDS: IPRATROPIUM 0.5MG/ALBUTEROL 2.5MG INH SOL UD 3ML (DUONEB)(J7620) NEB SCH ×4 (02:00→19:53)
[2016-10-13 04:00] VITALS: BP 171/77
[2016-10-13] MEDS: SODIUM CHLORIDE 0.9% INJ 10 ML SYR IV SCH ×2 (05:31→14:02)
[2016-10-13 05:52] LABS: BASO # 0.1 K/mm3 (0.0-0.2); BASO % 0.3 % (0.0-1.0); EOS % 0.2 % (0.0-3.0); LARGE UNSTAINED CELL # 0.2 K/mm3 (0.0-0.4); LYMPH # 2.1 K/mm3 (1.5-4.5); LYMPH % 8.9 % (24.0-44.0); MEAN CORPUSCULAR HEMOGLOBIN 33.4 pg (27.0-33.0); MEAN CORPUSCULAR HGB CONC 34.2 g/dl (32.0-36.5); MEAN CORPUSCULAR VOLUME 97.5 fl (80.0-96.0); MONO # 1.3 K/mm3 (0.0-0.8); NEUTROPHILS # 17.6 K/mm3 (1.8-7.7); NEUTROPHILS % 83.6 % (36.0-66.0); PLATELET COUNT, AUTOMATED 362 k/mm3 (150-450); RED CELL DISTRIBUTION WIDTH 15.2 % (11.5-14.5)
[2016-10-13] MEDS: HumaLOG INSULIN (NovoLOG) PER UNIT SC SCH ×4 (06:44→20:15)
[2016-10-13 08:00] VITALS: BP 139/66
[2016-10-13 08:01] LABS: CALCIUM LEVEL 9.2 MG/DL (8.8-10.2); CREATININE FOR GFR 1.4 MG/DL (0.70-1.30); GLOMERULAR FILTRATION RATE 52.6 (>42); POTASSIUM SERUM 3.9 MEQ/L (3.5-5.1)
--- NOTE | 2016-10-13 08:47 | REP ---
Clinical: Acute respiratory distress syndrome (ARDS). Technique: PA and lateral. Comparison: 10/12/2016. Findings: Mediastinum and cardiac silhouette are stable. Lung hernandez demonstrate chronic interstitial changes with superimposed stable right mid to lower lung infiltrates. No obvious effusion. No pneumothorax. Skeletal structures intact. Impression: No change from prior examination. Right mid/lower lung zone infiltrate unchanged. Signed by Bridger Mcclure MD 10/13/2016 08:31 A
[2016-10-13] MEDS: CO-ENZYME Q10 50 MG CAP PO SCH (08:58)
[2016-10-13] MEDS: DOCUSATE SODIUM 100 MG CAP PO SCH ×2 (08:58→20:15)
[2016-10-13] MEDS: HEPARIN SOD (PORCINE) 5000 UNITS/ML VIAL SC SCH ×2 (08:58→20:20)
[2016-10-13] MEDS: CALCIUM/VITAMIN D 500 MG TAB PO SCH ×2 (08:59→20:20)
[2016-10-13] MEDS: MOM 30ML SUSPENSION UDC PO SCH (08:59)
[2016-10-13] MEDS: SERTRALINE HCL 50 MG TAB PO SCH (08:59)
[2016-10-13] MEDS: CYANOCOBALAMIN 500 MCG TAB PO SCH (08:59)
[2016-10-13] MEDS: PANTOPRAZOLE 40MG TAB (PROTONIX) PO SCH (08:59)
[2016-10-13] MEDS ORDERED: predniSONE 20 MG TAB PO SCH (09:00)
[2016-10-13] MEDS: FOLIC ACID 1 MG TAB PO SCH (09:00)
[2016-10-13] MEDS: METOPROLOL TART 50 MG TAB PO SCH ×2 (09:00→20:20)
[2016-10-13] MEDS: LEVOTHYROXINE 100MCG TABLET (0.1MG) PO SCH (09:00)
--- NOTE | 2016-10-13 10:29 | IPN ---
DATE: 10/13/2016 This is now the 16th day for Mr. Howard, status post a left lower lobectomy for stage IA squamous cell carcinoma and accompanying methotrexate lung toxicity. He has been transferred to the progressive care unit (PCU) and he is sitting comfortably in a chair. He walked 30 feet today before he started to desaturate. He certainly needs strengthening but is coming along. His vital signs show a maximum temperature (T max) of 98.0 with a heart rate that ranges between 65 and 58 and is sinus rhythm, respiratory rate of 20 to 24 without the use of accessory muscles who is 93 to 97% saturated on 5 liters nasal cannula. Blood pressure is ranging between 138/78 to 171/77. His intake and output over the past 24 hours has been recorded as 624 in and 2325 out for a negativity of 1700 mL. He still continues to autodiurese without diuretics. His weight today is 76.7 kg compared to 84.5 kg yesterday. As noted yesterday, I think that the weight yesterday was spurious. PHYSICAL EXAMINATION: He has fine inspiratory crackles in the right lower hemithorax. These do not clear with coughing. His left lung shows normal vesicular sounds. Percussion notes are full to the diaphragm. Cardiac exam is without murmurs, clicks, gallops or rubs. I cannot feel his point of maximum impulse (PMI). S1, S2 are normal. Abdomen is soft and nontender. Bowel sounds are positive. There is no hepatomegaly. No costovertebral angle tenderness. Extremities show no pretibial edema. No calf tenderness. No differential swelling of the upper extremities. His skin is warm, dry and perfused without cyanosis or mottling, including that of the nail beds and the knees. Neck is supple. There is no jugular venous distention, no subcutaneous emphysema. Trachea is midline. Mouth shows his mucous membranes to be pink and moist. Lips and commissures without lesions. There is no thrush. Eyes show his pupils to be equal and reactive. Extraocular motions are intact. Sclerae anicteric. Neurologic shows II-XII intact along with gross motor and gross sensation intact. Gait is also intact with a walker. Psychiatric shows him to be awake and alert, oriented times three with appropriate mood and affect and conversational. His white count today is 21,000 with a hemoglobin and hematocrit of 13.8 and 40.3. Platelet count is 362. Differential shows 83% neutrophils, 8% lymphocytes, 6% monocytes. There are no immature forms. No toxic granulations. Electrolytes are normal today with a BUN and creatinine of 68 and 1.4, which continues to normalize. Calcium is 9.2. His chest x-ray today still shows the right lower infiltrative process. Costophrenic angles are sharp. Lungs are fully expanded to the chest wall and the mediastinum is in the midline. The infiltrative process can be seen posteriorly on the lateral chest x-ray. There is no subcutaneous emphysema. IMPRESSION: 1. Postoperative day #16 status post left lower lobectomy. 2. Methotrexate lung toxicity. 3. Squamous cell carcinoma of the left upper lobe, stage 1AT1b N0M0. 4. Chronic obstructive pulmonary disease (COPD). 5. Bilateral parotid tumors. 6. Hypothyroidism. 7. Hypertension. 8. Rheumatoid arthritis. 9. Gastroesophageal reflux disease (GERD). 10. Depression. 11. Hypoxia. 12. Postoperative ileus, resolved. 13. Preoperative immunosuppression secondary to methotrexate and prednisone for rheumatoid arthritis. 14. Hypermagnesemia, resolved. 15. Hyperkalemia, resolved. 16. Hypernatremia, resolved. 17. Renal insufficiency, improving. 18. Paroxysmal atrial fibrillation without recent episode. PLAN AND DISCUSSION: The main thrust of our treatment at this point in time will be to mobilize him and do rehabilitation. He walked 30 feet today before he desaturated. I suspect he is going to become desaturated for quite a long time. We will ask for a physical medicine and rehabilitation (PM and R) consultation along with occupational therapy (OT) and physical therapy (PT). He is now on prednisone 80 mg daily, decreased by Dr. Zapata yesterday from twice a day to daily. Will continue to try and wean his prednisone in consultation with pulmonary medicine.
[2016-10-13 12:00] VITALS: BP 153/72
[2016-10-13 16:00] VITALS: BP 149/74
[2016-10-13 19:39] VITALS: BP 128/63
[2016-10-13 23:37] VITALS: BP 153/74
[2016-10-14] VITALS (8 sets, daily range): BP systolic 128–168; BP diastolic 56–78; O2SAT 97
[2016-10-14] MEDS: IPRATROPIUM 0.5MG/ALBUTEROL 2.5MG INH SOL UD 3ML (DUONEB)(J7620) NEB SCH ×4 (01:47→20:39)
[2016-10-14 05:24] LABS: BASO % 0.2 % (0.0-1.0); EOS % 0.1 % (0.0-3.0); LARGE UNSTAINED CELL # 0.1 K/mm3 (0.0-0.4); LARGE UNSTAINED CELL % 0.7 % (0.0-4.0); LYMPH # 1.2 K/mm3 (1.5-4.5); LYMPH % 6.2 % (24.0-44.0); MEAN CORPUSCULAR HGB CONC 33.7 g/dl (32.0-36.5); MEAN CORPUSCULAR VOLUME 98.1 fl (80.0-96.0); MONO # 0.9 K/mm3 (0.0-0.8); MONO % 4.8 % (0.0-5.0); NEUTROPHILS # 15.5 K/mm3 (1.8-7.7); PLATELET COUNT, AUTOMATED 330 k/mm3 (150-450); RED CELL DISTRIBUTION WIDTH 15.4 % (11.5-14.5); WHITE BLOOD COUNT 17.6 K/mm3 (4.0-10.0)
[2016-10-14 05:35] LABS: CALCIUM LEVEL 9.1 MG/DL (8.8-10.2); CREATININE FOR GFR 1.32 MG/DL (0.70-1.30); GLOMERULAR FILTRATION RATE 56.3 (>42); POTASSIUM SERUM 4.1 MEQ/L (3.5-5.1)
[2016-10-14] MEDS: NIFEdipine 10 MG CAP PO SCH ×3 (06:48→17:16)
[2016-10-14] MEDS: CO-ENZYME Q10 50 MG CAP PO SCH (08:01)
[2016-10-14] MEDS: CYANOCOBALAMIN 500 MCG TAB PO SCH (08:01)
[2016-10-14] MEDS: FOLIC ACID 1 MG TAB PO SCH (08:01)
[2016-10-14] MEDS: CALCIUM/VITAMIN D 500 MG TAB PO SCH ×2 (08:02→20:59)
[2016-10-14] MEDS: METOPROLOL TART 50 MG TAB PO SCH ×2 (08:02→20:58)
[2016-10-14] MEDS: SERTRALINE HCL 50 MG TAB PO SCH (08:03)
[2016-10-14] MEDS: predniSONE 20 MG TAB PO SCH (08:03)
[2016-10-14] MEDS: LEVOTHYROXINE 100MCG TABLET (0.1MG) PO SCH (08:03)
[2016-10-14] MEDS: DOCUSATE SODIUM 100 MG CAP PO SCH ×2 (08:03→20:58)
[2016-10-14] MEDS: PANTOPRAZOLE 40MG TAB (PROTONIX) PO SCH (08:03)
[2016-10-14] MEDS: HumaLOG INSULIN (NovoLOG) PER UNIT SC SCH ×4 (08:04→20:59)
[2016-10-14] MEDS: MOM 30ML SUSPENSION UDC PO SCH (08:05)
[2016-10-14] MEDS: HEPARIN SOD (PORCINE) 5000 UNITS/ML VIAL SC SCH ×2 (08:05→20:59)
--- NOTE | 2016-10-14 08:37 | REP ---
Clinical: ARDS. Comparison: 10/13/2016. Technique: PA and lateral. Findings: Mediastinum and cardiac silhouette are normal. Chronic interstitial changes are stable. Right lower lobe infiltrate essentially unchanged. No obvious effusion. No pneumothorax. Skeletal structures intact. Impression: No significant change from prior examination. Continued right lower lobe infiltrate. Signed by Bridger Mcclure MD 10/14/2016 08:29 A
--- NOTE | 2016-10-14 09:31 | IPN ---
DATE: 10/14/2016 Mr. Howard has just gotten back from x-ray. He is a bit short of breath. Nonetheless, he has been weaned down to 4 liters nasal cannula and maintaining his saturations at around the 90-95% sylwia. His vital signs show a T-max of 97.4 with a heart rate that ranges between 56-68 in a sinus rhythm, respiratory rate that is constant at 20 without the use of accessory muscles who is 95-94% saturated on 4 liters nasal cannula. His blood pressure is ranging between 164/72 to 128/62. His intake and output for the past 24 hours is recorded as 1080 in and 1225 out for a negativity of 145 mL. He weighs 77 kg today compared to 76.7 kg yesterday. On physical examination, his lungs still show the fine crackles in the right lower lobe but they are markedly less. Percussion note is full to the diaphragm. I hear no other wheezing. Cardiac exam is without murmurs, clicks, gallops or rubs. I cannot feel his PMI. S1 and S2 are normal. Abdomen is soft, nontender, bowel sounds are positive. There is no hepatomegaly. No CVA tenderness. Extremities show now 2+ pretibial edema. No calf tenderness. No differential swelling of the upper extremities. Skin is warm, dry and perfused without cyanosis or mottling including that of the nail beds and knees. Neck is supple. There is no jugular venous distention. No subcutaneous emphysema. Trachea is midline. Mouth shows his mucous membranes to be pink and moist. Lips and commissures are without lesions. No thrush. Eyes show his pupils to be equal and reactive. Extraocular motor intact. Sclera anicteric. Neuro shows II through XII intact with gross motor and gross sensation intact. Gait is not tested. Psychiatric shows him to be awake and alert, oriented times three with appropriate mood and affect and conversational. His white count today is down to 17.6 with hemoglobin and hematocrit of 13.8 and 41.0 and a platelet count of 330. Differential shows 88% neutrophils, 6% lymphocytes, 4% monocytes. There are no immature forms. No toxic granulations. His electrolytes are normal with a BUN and creatinine that continues to improve to 64 and 1.32. Glucose is 118 with a calcium of 9.1. Chest x-ray shows again slight improvement in the right lower lobe infiltrative process with it being less opaque today. IMPRESSION: 1. Postoperative day #17 status post left lower lobectomy. 2. Methotrexate lung toxicity. 3. Squamous cell lung carcinoma of the left upper lobe stage [id number]. 4. Chronic obstructive pulmonary disease (COPD). 5. Bilateral carotid tumors. 6. Hypothyroidism. 7. Hypertension. 8. Rheumatoid arthritis. 9. Gastroesophageal reflux disease (GERD). 10. Depression. 11. Hypoxia. 12. Postoperative ileus, resolved. 13. Preoperative immunosuppression secondary to methotrexate on prednisone for rheumatoid arthritis. 14. Hypermagnesemia resolved. 15. Hyperkalemia resolved. 16. Hypernatremia resolved. 17. Renal insufficiency improving. 18. Paroxysmal atrial fibrillation without recent episode. 19. Deconditioning. PLAN AND DISCUSSION: Again the main thrust of his remaining care will be reconditioning him. He still gets hypoxic and very short of breath with minimal ambulation of about 30 feet. We are going to have to work with him over the next week or so. We may have to consider sending him to a rehabilitation facility. The methotrexate toxicity while reversible is going to be very slow. His steroids were decreased yesterday from 80 daily to 60 daily. I think that is the explanation for his decreasing white count.
[2016-10-15] VITALS (7 sets, daily range): BP systolic 139–166; BP diastolic 65–73; O2SAT 96
[2016-10-15] MEDS: NIFEdipine 10 MG CAP PO SCH ×4 (00:01→18:16)
[2016-10-15] MEDS: IPRATROPIUM 0.5MG/ALBUTEROL 2.5MG INH SOL UD 3ML (DUONEB)(J7620) NEB SCH ×4 (01:51→19:18)
[2016-10-15 05:34] LABS: BASO % 0.1 % (0.0-1.0); EOS # 0.1 K/mm3 (0.0-0.50); EOS % 0.7 % (0.0-3.0); LARGE UNSTAINED CELL # 0.1 K/mm3 (0.0-0.4); LARGE UNSTAINED CELL % 0.7 % (0.0-4.0); LYMPH # 1.7 K/mm3 (1.5-4.5); LYMPH % 8.4 % (24.0-44.0); MEAN CORPUSCULAR HEMOGLOBIN 33.3 pg (27.0-33.0); MEAN CORPUSCULAR HGB CONC 33.5 g/dl (32.0-36.5); MEAN CORPUSCULAR VOLUME 99.2 fl (80.0-96.0); MONO # 1.2 K/mm3 (0.0-0.8); MONO % 6.5 % (0.0-5.0); NEUTROPHILS # 15.2 K/mm3 (1.8-7.7); NEUTROPHILS % 83.5 % (36.0-66.0); PLATELET COUNT, AUTOMATED 283 k/mm3 (150-450); RED CELL DISTRIBUTION WIDTH 15.3 % (11.5-14.5); WHITE BLOOD COUNT 18.2 K/mm3 (4.0-10.0)
[2016-10-15 05:46] LABS: ANION GAP 9 MEQ/L (8-16); BLOOD UREA NITROGEN 56 MG/DL (7-18); CALCIUM LEVEL 8.6 MG/DL (8.8-10.2); CARBON DIOXIDE LEVEL 26 MEQ/L (21-32); CHLORIDE LEVEL 105 MEQ/L (98-107); CREATININE FOR GFR 1.23 MG/DL (0.70-1.30); GLOMERULAR FILTRATION RATE > 60.0 (>42); GLUCOSE, FASTING 100 MG/DL (83-110); POTASSIUM SERUM 3.7 MEQ/L (3.5-5.1); SODIUM LEVEL 140 MEQ/L (136-145)
[2016-10-15] MEDS: HumaLOG INSULIN (NovoLOG) PER UNIT SC SCH ×4 (07:16→21:00)
--- NOTE | 2016-10-15 07:53 | REP ---
The clinical: ARDS. Comparison: 10/14/2016. Findings: Mediastinum, cardiac silhouette, and lung hernandez are stable. Chronic changes with superimposed right sided infiltrates are again identified. No definite effusion. No pneumothorax. Skeletal structures intact. Impression: Stable pleuroparenchymal changes (right greater than left). Signed by Bridger Mcclure MD 10/15/2016 07:44 A
[2016-10-15] MEDS: HEPARIN SOD (PORCINE) 5000 UNITS/ML VIAL SC SCH ×2 (09:15→21:18)
[2016-10-15] MEDS: CALCIUM/VITAMIN D 500 MG TAB PO SCH ×2 (09:15→21:18)
[2016-10-15] MEDS: CO-ENZYME Q10 50 MG CAP PO SCH (09:16)
[2016-10-15] MEDS: LEVOTHYROXINE 100MCG TABLET (0.1MG) PO SCH (09:16)
[2016-10-15] MEDS: METOPROLOL TART 50 MG TAB PO SCH ×2 (09:16→21:00)
[2016-10-15] MEDS: FOLIC ACID 1 MG TAB PO SCH (09:16)
[2016-10-15] MEDS: MOM 30ML SUSPENSION UDC PO SCH (09:17)
[2016-10-15] MEDS: SERTRALINE HCL 50 MG TAB PO SCH (09:17)
[2016-10-15] MEDS: PANTOPRAZOLE 40MG TAB (PROTONIX) PO SCH (09:17)
[2016-10-15] MEDS: predniSONE 20 MG TAB PO SCH (09:17)
[2016-10-15] MEDS: DOCUSATE SODIUM 100 MG CAP PO SCH ×2 (09:17→21:17)
[2016-10-15] MEDS: CYANOCOBALAMIN 500 MCG TAB PO SCH (09:17)
--- NOTE | 2016-10-15 10:45 | IPN ---
DATE: 10/15/2016 Mr. Howard is still feeling very hypoxic with minimal activity. I have asked the nursing staff to increase his oxygen when he becomes active. It is viably important that he start to walk in the halls and mobilize more extensively, and if that takes more oxygen that is certainly indicated. His vital signs show a maximum temperature (Tmax) of 97.8 with a heart rate that ranges between 67-73 in a sinus rhythm punctuated by PACs. Respiratory rate is 18-20 without the use of accessory muscles at rest. He is 96% saturated on 4 liters nasal cannula and his blood pressure is ranging between 149/73 to 162/73. His intake and output for the past 24 hours has been recorded as 3000 in and 1975 out for a positivity of 1025 mL. He has taken 3000 mL in oral intake, which is the best oral intake he has had since admission. Weight today is 76.6 kg compared to 77 kg yesterday. On physical examination, his lungs show crackles in the right lower hemithorax during mid to late inspiration. These however, are more fine and less pronounced than they have been in the past. The left lung shows normal vesicular sounds. I hear no wheezes. Percussion note is full to the diaphragm. Cardiac exam is without murmurs, clicks, gallops or rubs. I cannot feel his point of maximum impulse (PMI). S1 and S2 are normal. Abdomen is soft, nontender. Bowel sounds are positive. There is no hepatomegaly. No costovertebral angle (CVA) tenderness. Extremities show now 2+ pretibial edema. No calf tenderness. No differential swelling of the upper extremities. Skin is warm, dry and perfused without cyanosis or mottling including that of the nail beds and knees. Neck is supple. There is no jugular venous distention. No subcutaneous emphysema. Trachea is midline. Mouth shows the mucous membranes to be pink and moist. Lips and commissures without lesions. There is no thrush. Eyes show his pupils to be equal and reactive. Extraocular motions are intact. Sclera anicteric. Neuro shows II-XII intact along with gross motor and gross sensation intact. Gait is not tested. Psychiatric shows him to be awake and alert, oriented times three with appropriate mood and affect and conversational. His white count today is 18.2, which is slightly up from 17.6 yesterday. Hemoglobin and hematocrit aer 13.4 and 39.8, essentially unchanged from yesterday, with a platelet count of 283 and stable. Differential shows 83% neutrophils, 8% lymphocytes, 6% monocytes. There are no immature forms. No toxic granulations. Electrolytes are normal today with a BUN and creatinine at 56 and 1.23 giving him a glomerular filtration rate (GFR) greater than 60. He has essentially normalized his renal function. Glucose is 100 with a calcium of 8.6. His chest x-ray today shows the same right lower lobe infiltrative process. It is essentially unchanged from yesterday. I can see his costophrenic angles well. I see no other infiltrates on the PA film or on the lateral film. IMPRESSION: 1. Postoperative day #18 status post left lower lobectomy. 2. Methotrexate lung toxicity. 3. Squamous cell lung carcinoma of the left upper lobe, stage 1A, [id number]. 4. Chronic obstructive pulmonary disease (COPD). 5. Bilateral parotid tumors. 6. Hypothyroidism. 7. Hypertension. 8. Rheumatoid arthritis. 9. Gastroesophageal reflux disease (GERD). 10. Depression. 11. Hypoxia. 12. Postoperative ileus, resolved. 13. Preoperative immunosuppression secondary to methotrexate and prednisone for rheumatoid arthritis. 14. Hypermagnesemia, resolved. 15. Hyperkalemia. resolved. 16. Hypernatremia. resolved. 17. Renal insufficiency, hopefully resolved. 18. Paroxysmal atrial fibrillation without recent episode. 19. Deconditioning. PLAN AND DISCUSSION: As noted above, he really needs to be mobilized. I have again asked the nurses to increase his oxygen during mobilization. This is going to take a long time and I will ask patient and family services (PFS) to look for a potential rehabilitation facility. Physical therapy and occupational therapy are already consulted, and also physical medicine and rehabilitation (PM and R) has been consulted for consideration of admission to that unit.
[2016-10-16] VITALS (8 sets, daily range): BP systolic 129–168; BP diastolic 67–78
[2016-10-16] MEDS: NIFEdipine 10 MG CAP PO SCH ×4 (00:26→17:38)
[2016-10-16] MEDS: IPRATROPIUM 0.5MG/ALBUTEROL 2.5MG INH SOL UD 3ML (DUONEB)(J7620) NEB SCH ×4 (01:56→21:05)
[2016-10-16 05:34] LABS: BASO % 0.1 % (0.0-1.0); EOS % 0.3 % (0.0-3.0); LARGE UNSTAINED CELL # 0.1 K/mm3 (0.0-0.4); LARGE UNSTAINED CELL % 0.8 % (0.0-4.0); LYMPH # 1.2 K/mm3 (1.5-4.5); LYMPH % 6.5 % (24.0-44.0); MEAN CORPUSCULAR HEMOGLOBIN 33.5 pg (27.0-33.0); MEAN CORPUSCULAR HGB CONC 34.4 g/dl (32.0-36.5); MEAN CORPUSCULAR VOLUME 97.3 fl (80.0-96.0); MONO % 5.9 % (0.0-5.0); NEUTROPHILS # 13.8 K/mm3 (1.8-7.7); NEUTROPHILS % 86.4 % (36.0-66.0); PLATELET COUNT, AUTOMATED 265 k/mm3 (150-450); RED CELL DISTRIBUTION WIDTH 15.1 % (11.5-14.5); WHITE BLOOD COUNT 15.9 K/mm3 (4.0-10.0)
[2016-10-16 06:10] LABS: ANION GAP 9 MEQ/L (8-16); BLOOD UREA NITROGEN 44 MG/DL (7-18); CALCIUM LEVEL 8.7 MG/DL (8.8-10.2); CARBON DIOXIDE LEVEL 26 MEQ/L (21-32); CHLORIDE LEVEL 103 MEQ/L (98-107); CREATININE FOR GFR 1.19 MG/DL (0.70-1.30); GLOMERULAR FILTRATION RATE > 60.0 (>42); GLUCOSE, FASTING 111 MG/DL (83-110); POTASSIUM SERUM 4.1 MEQ/L (3.5-5.1); SODIUM LEVEL 138 MEQ/L (136-145)
--- NOTE | 2016-10-16 08:08 | REP ---
Clinical: ARDS. Technique: PA and lateral. Comparison: 10/15/2016. Findings: Mediastinum, cardiac silhouette, and bilateral lung hernandez are essentially unchanged. Chronic interstitial changes with continued superimposed right lower lobe infiltrate again noted. No obvious effusion. No significant pneumothorax. Skeletal structures intact. Impression: No significant change from prior examination. Signed by Bridger Mcclure MD 10/16/2016 07:59 A
[2016-10-16] MEDS: CYANOCOBALAMIN 500 MCG TAB PO SCH (08:21)
[2016-10-16] MEDS: CO-ENZYME Q10 50 MG CAP PO SCH (08:21)
[2016-10-16] MEDS: METOPROLOL TART 50 MG TAB PO SCH ×2 (08:22→20:42)
[2016-10-16] MEDS: HEPARIN SOD (PORCINE) 5000 UNITS/ML VIAL SC SCH ×2 (08:22→20:42)
[2016-10-16] MEDS: CALCIUM/VITAMIN D 500 MG TAB PO SCH ×2 (08:23→20:42)
[2016-10-16] MEDS: PANTOPRAZOLE 40MG TAB (PROTONIX) PO SCH (08:23)
[2016-10-16] MEDS: SERTRALINE HCL 50 MG TAB PO SCH (08:23)
[2016-10-16] MEDS: FOLIC ACID 1 MG TAB PO SCH (08:23)
[2016-10-16] MEDS: DOCUSATE SODIUM 100 MG CAP PO SCH ×2 (08:23→20:41)
[2016-10-16] MEDS: LEVOTHYROXINE 100MCG TABLET (0.1MG) PO SCH (08:23)
[2016-10-16] MEDS: predniSONE 20 MG TAB PO SCH (08:23)
[2016-10-16] MEDS: HumaLOG INSULIN (NovoLOG) PER UNIT SC SCH ×4 (08:24→20:42)
[2016-10-16] MEDS: MOM 30ML SUSPENSION UDC PO SCH (08:28)
--- NOTE | 2016-10-16 12:11 | IPN ---
DATE: 10/16/2016 Mr. Howard had a better day yesterday. He walked four times, approximately 100 feet from his bed to the end of the nurses station and back. He was turned up to 8 liters of nasal cannula during ambulation and tolerated it fairly well. His vital signs show a maximum temperature (Tmax) of 98.1 with a heart rate that ranges between 62 and 89 in a sinus rhythm, respiratory rate that is constant at 18, without the use of accessory muscles, who is 90 to 97% saturated on 4 liters nasal cannula. His blood pressure is ranging between 144/71 to 157/77. His intake and output for the past 24 hours has been recorded as 2160 in and 1825 out for a positivity of 335 mL. He weighs 77.2 kg today compared to 76.6 kg yesterday. PHYSICAL EXAMINATION LUNGS: He has faint crackles during a bit delayed inspiration in the right hemithorax. Percussion note is full to the diaphragm. Left lung shows normal vesicular sounds. There is no wheezing. CARDIAC EXAM: Without murmurs, clicks, gallops or rubs. I cannot feel his point of maximum impulse (PMI). S1, S2 are normal. ABDOMEN: Soft, nontender. Bowel sounds positive. There is no hepatomegaly. No costovertebral angle tenderness. EXTREMITIES: Show no pretibial edema. No calf tenderness. No differential swelling of the upper extremities. SKIN: Warm, dry and perfused without cyanosis or mottling, including that of the nail beds and knees. NECK: Supple. There is no jugular venous distention. No subcutaneous emphysema. Trachea is midline. MOUTH: Shows his mucous membranes to be pink and moist. Lips and commissures without lesions. There is no thrush. EYES: Show his pupils to be equal and reactive. Extraocular motion intact. Sclerae anicteric. NEUROLOGIC: Shows II through XII intact with gross motor and gross sensation intact. Gait is not tested. PSYCHIATRIC: Shows him to be awake and alert, oriented times three with appropriate mood and affect and conversational. LABORATORY DATA: His white count today is 15.9, down from 18.2 yesterday. Hemoglobin and hematocrit are 13.1 and 38.0, respectively. Platelet count is 265 and differential shows 86% neutrophils, 6% lymphocytes, 5% monocytes. There are no immature forms. No toxic granulations. Electrolytes are normal and his BUN and creatinine are now normalized to 44 and 1.19 with a GFR greater than 60. Glucose is 1111 and calcium of 8.7. His chest x-ray is essentially unchanged today. He still has the right lower lobe infiltrative process. Costophrenic angles are sharp. I see no other infiltrative processes on the lateral film. IMPRESSION: 1. Postoperative day #19 status post left lower lobectomy. 2. Methotrexate lung toxicity. 3. 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 4. Chronic obstructive pulmonary disease (COPD). 5. Bilateral parotid tumors. 6. Hypothyroidism. 7. Hypertension. 8. Rheumatoid arthritis. 9. Gastroesophageal reflux disease (GERD). 10. Depression. 11. Hypoxia. 12. Postoperative ileus, resolved. 13. Preoperative immunosuppression secondary to methotrexate and prednisone for rheumatoid arthritis. 14. Hypermagnesemia, resolved. 15. Hyperkalemia. resolved. 16. Hypernatremia. resolved. 17. Renal insufficiency, resolving. 18. Paroxysmal atrial fibrillation without recent episode. 19. Deconditioning. PLAN AND DISCUSSION: The main thrust of our treatment now is rehabilitation and mobilization. I am very gratified that he was able to walk four times today at 100 feet. We are contacting [facility] for them to evaluate him for rehabilitation placement. I will also speak with patient and family services (PFS).
[2016-10-17 00:20] VITALS: BP 150/80
[2016-10-17] MEDS: NIFEdipine 10 MG CAP PO SCH ×4 (00:26→17:24)
[2016-10-17] MEDS: IPRATROPIUM 0.5MG/ALBUTEROL 2.5MG INH SOL UD 3ML (DUONEB)(J7620) NEB SCH ×4 (02:00→21:20)
[2016-10-17 03:51] VITALS: BP 160/82
[2016-10-17 06:13] LABS: BASO % 0.3 % (0.0-1.0); EOS # 0.1 K/mm3 (0.0-0.50); EOS % 0.5 % (0.0-3.0); LARGE UNSTAINED CELL # 0.1 K/mm3 (0.0-0.4); LARGE UNSTAINED CELL % 0.7 % (0.0-4.0); LYMPH # 1.1 K/mm3 (1.5-4.5); LYMPH % 6.5 % (24.0-44.0); MEAN CORPUSCULAR HEMOGLOBIN 32.9 pg (27.0-33.0); MEAN CORPUSCULAR HGB CONC 34.1 g/dl (32.0-36.5); MEAN CORPUSCULAR VOLUME 96.3 fl (80.0-96.0); MONO # 0.9 K/mm3 (0.0-0.8); MONO % 5.9 % (0.0-5.0); NEUTROPHILS # 13.5 K/mm3 (1.8-7.7); NEUTROPHILS % 86.1 % (36.0-66.0); PLATELET COUNT, AUTOMATED 244 k/mm3 (150-450); RED CELL DISTRIBUTION WIDTH 15.3 % (11.5-14.5); WHITE BLOOD COUNT 15.6 K/mm3 (4.0-10.0)
[2016-10-17 06:33] LABS: CALCIUM LEVEL 8.8 MG/DL (8.8-10.2); CREATININE FOR GFR 1.28 MG/DL (0.70-1.30); GLOMERULAR FILTRATION RATE 58.3 (>42); POTASSIUM SERUM 4.3 MEQ/L (3.5-5.1)
[2016-10-17 08:00] VITALS: BP 155/67
[2016-10-17] MEDS: MOM 30ML SUSPENSION UDC PO SCH (08:43)
[2016-10-17] MEDS: HumaLOG INSULIN (NovoLOG) PER UNIT SC SCH ×4 (08:43→20:47)
[2016-10-17] MEDS: HEPARIN SOD (PORCINE) 5000 UNITS/ML VIAL SC SCH ×2 (08:43→20:47)
[2016-10-17] MEDS: CYANOCOBALAMIN 500 MCG TAB PO SCH (08:44)
[2016-10-17] MEDS: FOLIC ACID 1 MG TAB PO SCH (08:44)
[2016-10-17] MEDS: CO-ENZYME Q10 50 MG CAP PO SCH (08:44)
[2016-10-17] MEDS: DOCUSATE SODIUM 100 MG CAP PO SCH ×2 (08:44→20:46)
[2016-10-17] MEDS: SERTRALINE HCL 50 MG TAB PO SCH (08:44)
[2016-10-17] MEDS: CALCIUM/VITAMIN D 500 MG TAB PO SCH ×2 (08:44→20:46)
[2016-10-17] MEDS: predniSONE 20 MG TAB PO SCH (08:45)
[2016-10-17] MEDS: PANTOPRAZOLE 40MG TAB (PROTONIX) PO SCH (08:45)
[2016-10-17] MEDS: METOPROLOL TART 50 MG TAB PO SCH ×2 (08:45→20:46)
[2016-10-17] MEDS: LEVOTHYROXINE 100MCG TABLET (0.1MG) PO SCH (08:49)
--- NOTE | 2016-10-17 09:29 | REP ---
Clinical: ARDS. Comparison: 10/16/2016. Technique: PA and lateral. Findings: Right lower lobe infiltrates may be slightly improved compared to prior examination. Underlying chronic changes are again noted and stable. Mediastinum and cardiac silhouette stable. No obvious effusion or pneumothorax. Skeletal structures intact. Impression: Findings suggest mild improvement to the right lower lobe infiltrate. Signed by Bridger Mcclure MD 10/17/2016 09:20 A
[2016-10-17 12:00] VITALS: BP 151/71
--- NOTE | 2016-10-17 13:42 | IPN ---
DATE: 10/17/2016 This is now the day for Mr. Howard. He is making good progress. He walked 100 feet this morning. He still needs increased oxygen when he is ambulating. We are at least being able to ambulate him and start to recondition him. I have spoken with [facility] with regard to a rehabilitation facility for the next few weeks and they are looking into it and in particular are awaiting for a response from [facility]. He has Stage I A disease and will not need adjuvant chemotherapy. [facility] ([facility] has turned him down as he cannot participate for a minimum of 3 hours for therapy, which at this point is not unreasonable. His vital signs show a maximum temperature (T-max) of 98.3 with a heart rate that ranges between 73 and 77 in a sinus rhythm, respiratory rate of 20 to 22 without the use of accessory muscles, who is 97 to 92% saturated on 4 liters nasal cannula at rest and whose blood pressure is ranging between 167/74 to 122/62. His intake and output for the past 24 hours has been recorded as 1530 in and 1625 out for near equality. His weight today is 76.5 kg compared to 77.2 kg yesterday. On physical examination, I do hear some wheezing in the left lower hemithorax and at the very end of expiration. Right lung shows inspiratory crackles in the lower hemithorax. Percussion note is full to the diaphragm. CARDIAC EXAM: Without murmurs, clicks, gallops or rubs. I cannot feel his point of maximum impulse (PMI). S1, S2 are normal. ABDOMEN: Soft, nontender. Bowel sounds positive. He is slightly tympanitic today. He had a bowel movement yesterday. No hepatomegaly. No costovertebral angle tenderness. EXTREMITIES: Show no pretibial edema. No calf tenderness. No differential swelling of the upper extremities. SKIN: Warm, dry and perfused without cyanosis or mottling, including that of the nail beds and knees. NECK: Supple. There is no jugular venous distention. No subcutaneous emphysema. Trachea is midline. MOUTH: Shows his mucous membranes to be pink and moist. Lips and commissures without lesions. There is no thrush. EYES: Show his pupils to be equal and reactive. Extraocular motion intact. Sclerae anicteric. NEUROLOGIC: Shows II through XII intact along with gross motor and gross sensation intact. Gait is not tested. PSYCHIATRIC: Shows him to be awake and alert, oriented times three with appropriate mood and affect and conversational. His white count today is 15.6, essentially unchanged from yesterday at 15.9. Hemoglobin and hematocrit are 12.8 and 37.6, again essentially unchanged, with a platelet count of 244 and a differential that shows 86% neutrophils, 6% lymphocytes, 5% monocytes. There are no immature forms. No toxic granulations. His electrolytes are normal with a BUN and creatinine of 41 and 1.28 with a calcium of 8.8 and a glucose of 107. His chest x-ray today shows what looks to be improvement in the right lower lobe. It may be secondary to a penetration, but it does look a lot less dense. The costophrenic angles are sharp. There is a little bit of fuzziness on the diaphragmatic surface on the right hemidiaphragm. There is no subcutaneous emphysema and there are no other infiltrates. IMPRESSION: 1. Postoperative day #20 status post left lower lobectomy. 2. Methotrexate lung toxicity. 3. 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 4. Chronic obstructive pulmonary disease (COPD). 5. Bilateral parotid tumors. 6. Hypothyroidism. 7. Hypertension. 8. Rheumatoid arthritis. 9. Gastroesophageal reflux disease (GERD). 10. Depression. 11. Hypoxia. 12. Postoperative ileus, resolved. 13. Preoperative immunosuppression secondary to methotrexate and prednisone for rheumatoid arthritis. 14. Hypermagnesemia, resolved. 15. Hyperkalemia, resolved. 16. Hypernatremia, resolved. 17. Renal insufficiency, resolving. 18. Paroxysmal atrial fibrillation without recent episode. 19. Deconditioning, improving. PLAN AND DISCUSSION: As above in the introduction to the note. I will await [facility] inquiries into placement for rehabilitation. I suspect he will need another 2-3 weeks. He will need to go on oxygen. As noted above, he will not need adjuvant chemotherapy as he has Stage I A disease.
[2016-10-17 16:00] VITALS: BP 152/70
[2016-10-17 20:00] VITALS: BP 121/58
[2016-10-18] VITALS (8 sets, daily range): BP systolic 105–158; BP diastolic 53–83
[2016-10-18] MEDS: NIFEdipine 10 MG CAP PO SCH ×4 (00:31→17:22)
[2016-10-18] MEDS: IPRATROPIUM 0.5MG/ALBUTEROL 2.5MG INH SOL UD 3ML (DUONEB)(J7620) NEB SCH ×4 (01:53→20:42)
[2016-10-18 06:20] LABS: BASO % 0.2 % (0.0-1.0); EOS # 0.2 K/mm3 (0.0-0.50); EOS % 1.2 % (0.0-3.0); LARGE UNSTAINED CELL # 0.1 K/mm3 (0.0-0.4); LYMPH # 1.7 K/mm3 (1.5-4.5); LYMPH % 10.9 % (24.0-44.0); MEAN CORPUSCULAR HEMOGLOBIN 33.3 pg (27.0-33.0); MEAN CORPUSCULAR HGB CONC 34.7 g/dl (32.0-36.5); MONO # 0.9 K/mm3 (0.0-0.8); MONO % 6.1 % (0.0-5.0); NEUTROPHILS # 11.5 K/mm3 (1.8-7.7); NEUTROPHILS % 80.7 % (36.0-66.0); PLATELET COUNT, AUTOMATED 211 k/mm3 (150-450); RED CELL DISTRIBUTION WIDTH 15.4 % (11.5-14.5); WHITE BLOOD COUNT 14.3 K/mm3 (4.0-10.0)
[2016-10-18 06:27] LABS: ANION GAP 8 MEQ/L (8-16); BLOOD UREA NITROGEN 41 MG/DL (7-18); CALCIUM LEVEL 8.5 MG/DL (8.8-10.2); CARBON DIOXIDE LEVEL 27 MEQ/L (21-32); CHLORIDE LEVEL 105 MEQ/L (98-107); GLOMERULAR FILTRATION RATE > 60.0 (>42); GLUCOSE, FASTING 93 MG/DL (83-110); POTASSIUM SERUM 3.8 MEQ/L (3.5-5.1); SODIUM LEVEL 140 MEQ/L (136-145)
[2016-10-18] MEDS: HumaLOG INSULIN (NovoLOG) PER UNIT SC SCH ×4 (07:30→20:25)
[2016-10-18] MEDS: MOM 30ML SUSPENSION UDC PO SCH (09:00)
[2016-10-18] MEDS: HEPARIN SOD (PORCINE) 5000 UNITS/ML VIAL SC SCH (09:30)
[2016-10-18] MEDS: FOLIC ACID 1 MG TAB PO SCH (09:31)
[2016-10-18] MEDS: SERTRALINE HCL 50 MG TAB PO SCH (09:31)
[2016-10-18] MEDS: CALCIUM/VITAMIN D 500 MG TAB PO SCH ×2 (09:31→20:33)
[2016-10-18] MEDS: DOCUSATE SODIUM 100 MG CAP PO SCH ×2 (09:31→20:33)
[2016-10-18] MEDS: PANTOPRAZOLE 40MG TAB (PROTONIX) PO SCH (09:31)
[2016-10-18] MEDS: CYANOCOBALAMIN 500 MCG TAB PO SCH (09:31)
[2016-10-18] MEDS: CO-ENZYME Q10 50 MG CAP PO SCH (09:31)
[2016-10-18] MEDS: METOPROLOL TART 50 MG TAB PO SCH ×2 (09:32→20:33)
[2016-10-18] MEDS: predniSONE 20 MG TAB PO SCH (09:32)
[2016-10-18] MEDS: LEVOTHYROXINE 100MCG TABLET (0.1MG) PO SCH (09:40)
--- NOTE | 2016-10-18 13:29 | REP ---
PA and lateral chest: Comparison 10/17/2016. The focal infiltrate inferiorly in the right lung, not significantly changed. There is no pleural effusion. Left lung is clear. Cardiac size normal. The stefan, mediastinum, bony thorax are unremarkable. Impression: Persisting infiltrate inferiorly in the right lung, unchanged. Signed by Bryan Stock MD 10/18/2016 01:21 P
--- NOTE | 2016-10-18 16:33 | IPN ---
DATE: 10/18/2016 Yesterday Mr. Howard walked approximately 100 feet in the grace with his family. This was repeated four times. During which time he did walk, the oxygen was not turned up and he seemed to tolerate that well. Every day he looks to be getting better. His vital signs show T-max of 98.6, with a heart rate that ranges between 65 and 72 in a sinus rhythm. Respiratory rate of 18 to 20, without the use of accessory muscles who is 98% saturated on 4 liters of nasal cannula. Blood pressure is ranging between 105/53 to 153/73. His intake and output over the past 24 hours has been recorded as 1540 in and 875 out for a positivity of 660 mL. Weight today is 75.7 kg compared to 76.5 kg yesterday. PHYSICAL EXAMINATION: On physical examination he has equal breath sounds on either side. There is still some faint crackles in the right lower hemithorax. Percussion note is full to the diaphragm. Cardiac exam is without murmurs, clicks, gallops or rubs. I cannot feel his point of maximal impulse (PMI). S1, S2 are normal. Abdomen: Soft and nontender. Bowel sounds are positive. He is less distended today and less tympanitic. He had a bowel movement yesterday. There is no hepatomegaly, no costovertebral angle (CVA) tenderness. Extremities: Show no pretibial edema, no calf tenderness. No differential swelling of the upper extremities. Skin: Warm, dry, and perfused without cyanosis or mottling including that of the nail beds and the knees. Neck is supple. There is no jugular venous distention. No subcuticular emphysema. Trachea is midline. Mouth shows his mucous membranes to be pink and moist, lips and commissures without lesions. There is no thrush. Eyes show his pupils to be equal and reactive. Extraocular muscles intact. Sclera anicteric. Neuro: Shows II through XII intact. Gross motor and gross sensation intact. Gait is not tested. Psychiatric: Shows him to be awake, alert and oriented times three, with appropriate mood, affect, and conversational. His white count today is down to 14.3 with a hemoglobin and hematocrit of 12.2 and 35.3, essentially unchanged from yesterday with a platelet count of 211. Differential shows 80% neutrophils, 10% lymphocytes, 6% monocytes. There are no immature forms. No toxic granulations. He has normal electrolytes today with a BUN and creatinine of 41 and 1.1. Glucose is 93 with a calcium of 8.5. His chest x-ray today shows the lung fully expanded to the chest wall. He still has a right lower lobe infiltrative process which actually looks a bit worse today, but I suspect it is secondary to technique. Costophrenic angles are sharp. It is not as good an inspiration as it was yesterday. IMPRESSION: 1. Postoperative day #21, status post left lower lobectomy. 2. Methotrexate lung toxicity. 3. 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 4. Chronic obstructive pulmonary disease (COPD). 5. Bilateral carotid tumors. 6. Hypothyroidism. 7. Hypertension. 8. Rheumatoid arthritis. 9. Gastroesophageal reflux disease (GERD). 10. Depression. 11. Hypoxia. 12. Postoperative ileus, resolved. 13. Preoperative immunosuppression secondary to methotrexate and prednisone for rheumatoid arthritis. 14. Hypermagnesemia, resolved. 15. Hyperkalemia, resolved. 16. Hypernatremia, resolved. 17. Renal insufficiency, resolving. 18. Paroxysmal atrial fibrillation, without recent episode. 19. Deconditioning, improving. PLAN AND DISCUSSION: I am still waiting to hear if he can be placed at a rehabilitation unit, and particularly [facility]. We will continue to ambulate him and recondition him. Physical therapy is working with him. I am encouraged every day that he is making progress.
[2016-10-19] MEDS: NIFEdipine 10 MG CAP PO SCH ×4 (00:21→17:12)
[2016-10-19] MEDS: IPRATROPIUM 0.5MG/ALBUTEROL 2.5MG INH SOL UD 3ML (DUONEB)(J7620) NEB SCH ×4 (01:30→20:47)
[2016-10-19 04:58] VITALS: BP 115/64
[2016-10-19 05:08] LABS: BASO % 0.2 % (0.0-1.0); EOS # 0.2 K/mm3 (0.0-0.50); EOS % 1.5 % (0.0-3.0); LARGE UNSTAINED CELL # 0.1 K/mm3 (0.0-0.4); LYMPH # 1.5 K/mm3 (1.5-4.5); LYMPH % 10.9 % (24.0-44.0); MEAN CORPUSCULAR HEMOGLOBIN 33.8 pg (27.0-33.0); MEAN CORPUSCULAR HGB CONC 35.3 g/dl (32.0-36.5); MEAN CORPUSCULAR VOLUME 95.9 fl (80.0-96.0); MONO # 0.8 K/mm3 (0.0-0.8); MONO % 6.3 % (0.0-5.0); NEUTROPHILS # 10.3 K/mm3 (1.8-7.7); NEUTROPHILS % 80.1 % (36.0-66.0); PLATELET COUNT, AUTOMATED 198 k/mm3 (150-450); RED CELL DISTRIBUTION WIDTH 15.4 % (11.5-14.5); WHITE BLOOD COUNT 12.9 K/mm3 (4.0-10.0)
[2016-10-19 05:20] LABS: ANION GAP 7 MEQ/L (8-16); BLOOD UREA NITROGEN 34 MG/DL (7-18); CALCIUM LEVEL 8.4 MG/DL (8.8-10.2); CARBON DIOXIDE LEVEL 27 MEQ/L (21-32); CHLORIDE LEVEL 105 MEQ/L (98-107); CREATININE FOR GFR 1.03 MG/DL (0.70-1.30); GLOMERULAR FILTRATION RATE > 60.0 (>42); GLUCOSE, FASTING 93 MG/DL (83-110); POTASSIUM SERUM 3.7 MEQ/L (3.5-5.1); SODIUM LEVEL 139 MEQ/L (136-145)
[2016-10-19] MEDS: HumaLOG INSULIN (NovoLOG) PER UNIT SC SCH ×4 (07:30→20:37)
[2016-10-19 08:00] VITALS: BP 120/62
--- NOTE | 2016-10-19 08:32 | REP ---
Clinical: ARDS follow-up. Comparison: 10/18/2016. Technique: PA and lateral. Findings: Mediastinum and cardiac silhouette are stable. Lung hernandez demonstrate chronic changes with improved aeration and subtle decreased to the right lower lobe infiltrates. No new acute consolidation, effusion, or pneumothorax. Skeletal structures intact. Impression: Findings suggest subtle improvement to the right lower lobe infiltrates. Signed by Bridger Mcclure MD 10/19/2016 08:24 A
[2016-10-19] MEDS: MOM 30ML SUSPENSION UDC PO SCH (09:00)
[2016-10-19] MEDS: DOCUSATE SODIUM 100 MG CAP PO SCH ×2 (09:00→20:42)
[2016-10-19 09:07] VITALS: BP 139/67
[2016-10-19] MEDS: FOLIC ACID 1 MG TAB PO SCH (09:09)
[2016-10-19] MEDS: CO-ENZYME Q10 50 MG CAP PO SCH (09:09)
[2016-10-19] MEDS: PANTOPRAZOLE 40MG TAB (PROTONIX) PO SCH (09:09)
[2016-10-19] MEDS: predniSONE 20 MG TAB PO SCH (09:09)
[2016-10-19] MEDS: CYANOCOBALAMIN 500 MCG TAB PO SCH (09:09)
[2016-10-19] MEDS: CALCIUM/VITAMIN D 500 MG TAB PO SCH ×2 (09:10→20:42)
[2016-10-19] MEDS: SERTRALINE HCL 50 MG TAB PO SCH (09:10)
[2016-10-19] MEDS: METOPROLOL TART 50 MG TAB PO SCH ×2 (09:10→20:42)
[2016-10-19] MEDS: LEVOTHYROXINE 100MCG TABLET (0.1MG) PO SCH (10:53)
[2016-10-19] MEDS ORDERED: PERCOCET 5MG/325MG TAB PO PRN (11:00)
[2016-10-19 12:01] VITALS: BP 130/66
[2016-10-19] MEDS: HEPARIN SOD (PORCINE) 5000 UNITS/ML VIAL SQ SCH ×2 (12:24→20:43)
[2016-10-19 15:30] VITALS: BP 137/58
[2016-10-19 19:52] VITALS: BP 138/65
[2016-10-20] VITALS (7 sets, daily range): BP systolic 128–162; BP diastolic 59–76; PULSE 66–68
[2016-10-20] MEDS: NIFEdipine 10 MG CAP PO SCH ×4 (00:12→17:14)
[2016-10-20] MEDS: IPRATROPIUM 0.5MG/ALBUTEROL 2.5MG INH SOL UD 3ML (DUONEB)(J7620) NEB SCH ×4 (02:00→20:00)
[2016-10-20 05:16] LABS: BASO % 0.2 % (0.0-1.0); EOS # 0.2 K/mm3 (0.0-0.50); EOS % 1.6 % (0.0-3.0); LARGE UNSTAINED CELL # 0.2 K/mm3 (0.0-0.4); LARGE UNSTAINED CELL % 1.1 % (0.0-4.0); LYMPH % 14.2 % (24.0-44.0); MEAN CORPUSCULAR HEMOGLOBIN 33.7 pg (27.0-33.0); MEAN CORPUSCULAR HGB CONC 35.2 g/dl (32.0-36.5); MEAN CORPUSCULAR VOLUME 95.7 fl (80.0-96.0); MONO # 0.7 K/mm3 (0.0-0.8); MONO % 5.4 % (0.0-5.0); NEUTROPHILS % 77.4 % (36.0-66.0); PLATELET COUNT, AUTOMATED 198 k/mm3 (150-450); RED CELL DISTRIBUTION WIDTH 15.3 % (11.5-14.5)
[2016-10-20 05:36] LABS: ANION GAP 9 MEQ/L (8-16); BLOOD UREA NITROGEN 34 MG/DL (7-18); CALCIUM LEVEL 8.7 MG/DL (8.8-10.2); CARBON DIOXIDE LEVEL 27 MEQ/L (21-32); CHLORIDE LEVEL 105 MEQ/L (98-107); CREATININE FOR GFR 0.98 MG/DL (0.70-1.30); GLOMERULAR FILTRATION RATE > 60.0 (>42); GLUCOSE, FASTING 91 MG/DL (83-110); POTASSIUM SERUM 3.6 MEQ/L (3.5-5.1); SODIUM LEVEL 141 MEQ/L (136-145)
--- NOTE | 2016-10-20 06:49 | IPN ---
DATE: 10/19/2016 This is now day 22 for Mr. Howard. His progress is starting to accelerate. He walked 140 feet yesterday and was less short of breath. His vital signs show a T-max of 98.8, with a heart rate that ranges between 56 and 77 and is sinus rhythm. Respiratory rate of 18 without the use of accessory muscles who is 96% saturated on 4 liters of nasal cannula, and whose blood pressure is ranging between 115/64 to 139/67. His intake and output over the past 24 hours has been recorded as 1640 in and 925 out for a positivity of 750 mL. He weighs 75.6 kg today compared to 75.7 kg yesterday. On physical examination, his lungs show some faint crackles in the right lower hemithorax. Percussion note is full to the diaphragm. Cardiac exam is without murmurs, clicks, gallops or rubs. I cannot feel his point of maximal impulse (PMI). S1 and S2 are normal. Abdomen is soft, nontender. Bowel sounds are positive. There is no hepatomegaly. No costovertebral angle (CVA) tenderness. Extremities show no pretibial edema, no calf tenderness. No differential swelling of the upper extremities. Skin is warm, dry, and perfused without cyanosis or mottling including that of the nail beds and the knees. Neck is supple. There is no jugular venous distention. No subcuticular emphysema. Trachea is midline. Mouth shows his mucous membranes to be pink and moist, lips and commissures without lesions. There is no thrush. Eyes show his pupils to be equal and reactive. Extraocular muscles intact. Sclera nonicteric. Neuro shows II through XII intact along with gross motor and gross sensation intact. Gait is not tested. Psychiatric showed him to be awake, alert and oriented times three, with appropriate mood, affect, and conversational. His white count today is down to 12.9 with a hemoglobin and hematocrit of 13.0 and 36.8, slightly up from 12.2 and 35.3 yesterday. Platelet count is 198 and stable. Differential shows 80% neutrophils, 10% lymphocytes, 6% monocytes. There are no immature forms. No toxic granulations. Electrolytes are normal with a BUN and creatinine of now 34 and 1.03. Glucose of 93 and a calcium of 8.4. His chest x-ray today again shows his lung fully expanded to the chest wall. The infiltrative process in the right lower lobe is markedly improving. Costophrenic angles are sharp. I see no other infiltrates. IMPRESSION: 1. Postoperative day number 22, status post left lower lobectomy. 2. Methotrexate lung toxicity. 3. Squamous cell lung carcinoma of the left upper lobe, stage IA, [id number]. 4. Chronic obstructive pulmonary disease (COPD). 5. Bilateral parotid tumors. 6. Hypothyroidism. 7. Hypertension. 8. Rheumatoid arthritis. 9. Gastroesophageal reflux disease (GERD). 10. Depression. 11. Hypoxia. 12. Postoperative ileus, resolved. 13. Preoperative immunosuppression secondary to methotrexate and prednisone for rheumatoid arthritis. 14. Hypermagnesemia, resolved. 15. Hyperkalemia, resolved. 16. Hypernatremia, resolved. 17. Renal insufficiency, resolved. 18. Paroxysmal atrial fibrillation, without recent episode. 19. Deconditioning, improving. PLAN AND DISCUSSION: We have been waiting for a facility for placement for rehab. His progress has started to accelerate and there may be an outside possibility of actually sending him home. I have asked him if he could have one of his family members stay with him for a coupe of weeks at home should we consider discharging him.
[2016-10-20] MEDS: HumaLOG INSULIN (NovoLOG) PER UNIT SC SCH ×4 (07:30→21:38)
[2016-10-20] MEDS: HEPARIN SOD (PORCINE) 5000 UNITS/ML VIAL SQ SCH ×2 (08:27→21:31)
[2016-10-20] MEDS: PANTOPRAZOLE 40MG TAB (PROTONIX) PO SCH (08:28)
[2016-10-20] MEDS: METOPROLOL TART 50 MG TAB PO SCH ×2 (08:28→21:31)
[2016-10-20] MEDS: FOLIC ACID 1 MG TAB PO SCH (08:28)
[2016-10-20] MEDS: MOM 30ML SUSPENSION UDC PO SCH (08:28)
[2016-10-20] MEDS: CALCIUM/VITAMIN D 500 MG TAB PO SCH ×2 (08:29→21:31)
[2016-10-20] MEDS: CYANOCOBALAMIN 500 MCG TAB PO SCH (08:29)
[2016-10-20] MEDS: predniSONE 20 MG TAB PO SCH (08:29)
[2016-10-20] MEDS: DOCUSATE SODIUM 100 MG CAP PO SCH ×2 (08:29→21:31)
[2016-10-20] MEDS: LEVOTHYROXINE 100MCG TABLET (0.1MG) PO SCH (08:30)
[2016-10-20] MEDS: SERTRALINE HCL 50 MG TAB PO SCH (08:30)
[2016-10-20] MEDS: CO-ENZYME Q10 50 MG CAP PO SCH (08:42)
--- NOTE | 2016-10-20 08:52 | REP ---
Clinical: ARDS. Comparison: 10/19/2016, 10/13/2016. Technique: PA and lateral. Findings: Subtle decreased to the right lower lobe infiltrates and mild improved aeration is suggested over the span of comparison studies. Mediastinum and cardiac silhouette are normal. Skeletal structures are stable. Impression: Findings suggest subtle improved aeration to the right lower lobe infiltrate. No new acute process identified. Signed by Bridger Mcclure MD 10/20/2016 08:42 A
[2016-10-21 00:32] VITALS: BP 156/72
[2016-10-21] MEDS: NIFEdipine 10 MG CAP PO SCH ×3 (00:33→12:46)
[2016-10-21] MEDS: IPRATROPIUM 0.5MG/ALBUTEROL 2.5MG INH SOL UD 3ML (DUONEB)(J7620) NEB SCH ×3 (02:00→13:37)
[2016-10-21 04:42] VITALS: BP 126/62
[2016-10-21 05:24] LABS: BASO % 0.2 % (0.0-1.0); EOS # 0.2 K/mm3 (0.0-0.50); EOS % 1.9 % (0.0-3.0); LARGE UNSTAINED CELL # 0.2 K/mm3 (0.0-0.4); LARGE UNSTAINED CELL % 1.2 % (0.0-4.0); LYMPH # 2.3 K/mm3 (1.5-4.5); LYMPH % 15.8 % (24.0-44.0); MEAN CORPUSCULAR HEMOGLOBIN 33.6 pg (27.0-33.0); MEAN CORPUSCULAR HGB CONC 34.7 g/dl (32.0-36.5); MEAN CORPUSCULAR VOLUME 96.8 fl (80.0-96.0); MONO # 0.7 K/mm3 (0.0-0.8); MONO % 5.2 % (0.0-5.0); NEUTROPHILS # 10.1 K/mm3 (1.8-7.7); NEUTROPHILS % 75.7 % (36.0-66.0); PLATELET COUNT, AUTOMATED 206 k/mm3 (150-450); RED CELL DISTRIBUTION WIDTH 15.5 % (11.5-14.5); WHITE BLOOD COUNT 13.3 K/mm3 (4.0-10.0)
[2016-10-21 05:33] LABS: ANION GAP 9 MEQ/L (8-16); BLOOD UREA NITROGEN 35 MG/DL (7-18); CALCIUM LEVEL 8.8 MG/DL (8.8-10.2); CARBON DIOXIDE LEVEL 26 MEQ/L (21-32); CHLORIDE LEVEL 104 MEQ/L (98-107); CREATININE FOR GFR 1.01 MG/DL (0.70-1.30); GLOMERULAR FILTRATION RATE > 60.0 (>42); GLUCOSE, FASTING 91 MG/DL (83-110); POTASSIUM SERUM 3.4 MEQ/L (3.5-5.1); SODIUM LEVEL 139 MEQ/L (136-145)
[2016-10-21] MEDS ORDERED: POTASSIUM CHLORIDE 10 MEQ SR TABLET PO ONE (06:15)
--- NOTE | 2016-10-21 06:39 | IPN ---
DATE: 10/20/2016 Mr. Howard continues to make good progress. He is walking the halls with his walker now. He is only on 4 liters nasal cannula and he is maintaining his saturations between 93-98% even with ambulation. His family was with him today and we talked about the possibility of going home and will plan for early next week if things continue to go well. We could even possibly think about sending him home tomorrow. His vital signs show a T-max of 99.1 with a heart rate that ranges between 69-71 in sinus rhythm, respiratory rate that is constant at 18 without the use of accessory muscles who is 98-93% saturated on 4 liters nasal cannula and has blood pressures ranging between 137/59 to 128/60. His intake and output over the past 24 hours has been recorded as only 360 in and 750 out for a negativity of 390 mL. This is vastly different from his prior inputs and outputs. I am not sure if they are accurate. Weight today is 76.2 kg compared to 75.6 kg yesterday. On physical examination, he has very faint crackles in the right lower lobe but they are almost imperceptible now. Left shows normal vesicular sounds. Percussion note is full to the diaphragm. Cardiac exam is without murmur, clips, gallops or rubs. I cannot feel his PMI. S1 and S2 are normal. Abdomen is soft, nontender, bowel sounds are positive. There is no hepatomegaly. No CVA tenderness. Extremities show no pretibial edema. No calf tenderness. No differential swelling of the upper extremities. Skin is warm, dry and perfused without cyanosis or mottling including that of the nail beds and knees. Neck is supple. There is no jugular venous distention. No subcutaneous emphysema. Trachea is midline. Mouth shows his mucous membranes to be pink and moist. Lips and commissures are without lesions. No thrush. Eyes show his pupils to be equal and reactive. Extraocular motor intact. Sclera anicteric. Neuro shows II through XII intact with gross motor and gross sensation intact. Gait is not tested. Psychiatric shows him to be awake and alert, oriented times three with appropriate mood and affect and conversational. His white count today is 13.0 essentially unchanged from yesterday with hemoglobin and hematocrit of 12.5 and 35.7 again unchanged from yesterday with a platelet count of 198 and stable. Differential shows 77% neutrophils, 14% lymphocytes, 5% monocytes. There are no immature forms. No toxic granulations. His chemistries today show normal electrolytes with BUN and creatinine of 34 and 0.98. Calcium is 8.7 with a glucose of 91. His chest x-ray today shows the lung fully expanded to the chest wall. Right lower lobe infiltrative process is vastly improving. Costophrenic angles are sharp. Lateral view shows no posterior infiltrates. IMPRESSION: 1. Postoperative day #23 status post left lower lobectomy. 2. Methotrexate lung toxicity. 3. Squamous cell carcinoma of the left upper lobe, stage [id number]. 4. Chronic obstructive pulmonary disease (COPD). 5. Bilateral parotid tumors. 6. Hypothyroidism. 7. Hypertension. 8. Rheumatoid arthritis. 9. Gastroesophageal reflux disease (GERD). 10. Depression. 11. Hypoxia. 12. Postoperative ileus resolved. 13. Preoperative immunosuppression secondary to methotrexate and prednisone for rheumatoid arthritis. 14. Hypermagnesemia resolved. 15. Hyperkalemia resolved. 16. Hypernatremia resolved. 17. Renal insufficiency resolved. 18. Paroxysmal atrial fibrillation without recent episode. 19. Deconditioning improving. PLAN AND DISCUSSION: As noted above, I now feel that he would be able to go home with family attendance in the next couple of days. We will continue to work on his ambulation and conditioning.
[2016-10-21] MEDS: HumaLOG INSULIN (NovoLOG) PER UNIT SC SCH ×2 (07:30→12:45)
[2016-10-21 07:59] VITALS: BP 152/72
[2016-10-21] MEDS: MOM 30ML SUSPENSION UDC PO SCH (08:46)
[2016-10-21] MEDS: predniSONE 20 MG TAB PO SCH (08:47)
[2016-10-21] MEDS: CO-ENZYME Q10 50 MG CAP PO SCH (08:47)
[2016-10-21] MEDS: FOLIC ACID 1 MG TAB PO SCH (08:47)
[2016-10-21] MEDS: CALCIUM/VITAMIN D 500 MG TAB PO SCH (08:47)
[2016-10-21] MEDS: LEVOTHYROXINE 100MCG TABLET (0.1MG) PO SCH (08:47)
[2016-10-21] MEDS: CYANOCOBALAMIN 500 MCG TAB PO SCH (08:47)
[2016-10-21] MEDS: HEPARIN SOD (PORCINE) 5000 UNITS/ML VIAL SQ SCH (08:47)
[2016-10-21] MEDS: PANTOPRAZOLE 40MG TAB (PROTONIX) PO SCH (08:47)
[2016-10-21 08:48] VITALS: BP 152/72
[2016-10-21] MEDS: SERTRALINE HCL 50 MG TAB PO SCH (08:48)
[2016-10-21] MEDS: METOPROLOL TART 50 MG TAB PO SCH (08:48)
[2016-10-21] MEDS: DOCUSATE SODIUM 100 MG CAP PO SCH (08:48)
--- NOTE | 2016-10-21 10:16 | REP ---
CHEST, TWO VIEWS: HISTORY: ARDS. COMPARISON: 10/20/2016 Increased density is present in the right lower lobe consistent with an infiltrate unchanged compared to the previous study. The left lung is clear. The heart is normal in size. The pulmonary vasculature is normal in appearance. The bony structure is intact. IMPRESSION: Right lower lobe infiltrate unchanged compared to the previous study. Signed by Brady Jacobo MD 10/21/2016 10:18 A
[2016-10-21] MEDS ORDERED: PRED20TA PO (12:40)
[2016-10-21] MEDS ORDERED: LOPR1TAB6 PO (12:40)
[2016-10-21] MEDS ORDERED: ALBU17IN INH (12:40)
--- NOTE | 2016-10-22 07:44 | DSES ---
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 Postoperative day #24 status post left lower lobectomy. Methotrexate lung toxicity. Chronic obstructive pulmonary disease (COPD). Bilateral parotid tumors. Hypothyroidism. Hypertension. Rheumatoid arthritis. Gastroesophageal reflux disease (GERD). Depression. Hypoxia. Postoperative ileus resolved. Preoperative immunosuppression secondary to methotrexate and prednisone for rheumatoid arthritis. Hypermagnesemia resolved. Hyperkalemia resolved. Hypernatremia resolved. Renal insufficiency resolved. Paroxysmal atrial fibrillation without recent episodes. Deconditioning improving at discharge. HOSPITAL COURSE: Patient is a 76-year-old white male who was found to have a biopsy proving squamous cell carcinoma of the left upper lobe. He had undergone early detection lung cancer screening and was found to have a 2.5 cavitary lesion in the left upper lobe but was essentially asymptomatic. He did smoke about a pack a day. His pulmonary function test showed a FEV1 of 2.62 which is 103% of predicted with a normal FEV1/FVC ratio and diffusion capacity of 76% predicted. He has underlying rheumatoid arthritis for which he is on methotrexate and prednisone. He was therefore taken to the operating room where he underwent a left upper lobectomy. His final staging showed stage 1A disease. His first postoperative night was benign, however in the second postoperative day, he started to become hypoxic and developed a right lower lobe infiltrate. While this was very fast for postoperative pneumonia, it was treated as such, however. He was started on vancomycin and Zosyn. He did eventually grow out a couple of colonies of Enterobacter. He made a very slow improvement and became obvious to us at about 5 or 6 days that this was not a postoperative pneumonia or lung infection but rather methotrexate toxicity probably aggregated by single lung anesthetic technique along with high inspired fraction of oxygen needed during surgery. He was taken off the antibiotics and was started on prednisone. He made a very slow recovery having needed CPAP oxygenation with FiO2 up to 80%. He was gradually weaned off the CPAP and placed on nasal cannula at first 15 liters per minute and now down to 4 liters per minute for the last 5 or 6 days. Because of his long hospital course, he became deconditioned and we started an ambulation program with physical therapy. He is now able to ambulate 150 feet and not desaturate on 4 liters nasal cannula. His chest x-ray slowly but consistently improved such that the fairly dense infiltrative pattern is resolving. He is being discharged today on his home medications including: - aspirin 325 mg daily - calcium one tablet twice daily - Coenzyme Q 200 mg daily - vitamin B12 1000 mg daily - folic acid 2 mg daily - Synthroid 125 mcg daily - nifedipine 60 mg twice daily - Protonix 40 mg daily - Zoloft 50 mg daily - tramadol 50 mg as needed pain. I have stopped the furosemide, the lisinopril, the methotrexate and his 1 mg of prednisone. New prescriptions include: - Ventolin inhaler two puffs four times daily - metoprolol 50 mg twice daily - prednisone 60 mg daily He will return to see me in 1 week with a chest x-ray and postoperative followup. His discharge white count is 13.3 with hemoglobin and hematocrit of 12.8 and 37.0 and a platelet count of 206. Chemistries show normal electrolytes with a marginally low potassium which was replaced by oral medication this morning. BUN and creatinine are 35 and 1.01 with a glucose of 91 and a calcium of 8.8. His chest x-ray shows his lung fully expanded to the chest wall. There is still a hint of a right infiltrative process in the lower hemithorax on the right side. MTDD
== END 2016-10-21 14:24 | disposition home health service (06) | DRG 163 ==
LOC: M OR 07:01 → M PCU 15:03 → M ICU 09-30 06:11 → M PCU 10-12 11:22
PROVIDERS: ADMIT Thoracic Surgery (Cardiothoracic Vascular Surgery); ATTEND Thoracic Surgery (Cardiothoracic Vascular Surgery)
PROC: 0BBG0ZZ Excision of Left Upper Lung Lobe, Open Approach (ICD-10-PCS; 2016-09-27)
PROC: 07B70ZX Excision of Thorax Lymphatic, Open Approach, Diagnostic (ICD-10-PCS; 2016-09-27)
PROC: 05H633Z Insertion of Infusion Device into Left Subclavian Vein, Percutaneous Approach (ICD-10-PCS; principal; 2016-10-02)
DX: C34.12 Malignant neoplasm of upper lobe, left bronchus or lung (principal); J95.1 Acute pulmonary insufficiency following thoracic surgery; J81.1 Chronic pulmonary edema; K91.89 Other postprocedural complications and disorders of digestive system; K56.7 Ileus, unspecified; E87.0 Hyperosmolality and hypernatremia; E87.70 Fluid overload, unspecified; I50.9 Heart failure, unspecified; I48.0 Paroxysmal atrial fibrillation; K21.9 Gastro-esophageal reflux disease without esophagitis; E03.9 Hypothyroidism, unspecified; I11.9 Hypertensive heart disease without heart failure; F32.9 Major depressive disorder, single episode, unspecified; M06.9 Rheumatoid arthritis, unspecified; E87.5 Hyperkalemia; E83.41 Hypermagnesemia; J44.9 Chronic obstructive pulmonary disease, unspecified; Z79.82 Long term (current) use of aspirin; Z79.899 Other long term (current) drug therapy; T45.1X5A Adverse effect of antineoplastic and immunosuppressive drugs, initial encounter; D37.030 Neoplasm of uncertain behavior of the parotid salivary glands; E83.39 Other disorders of phosphorus metabolism; R09.02 Hypoxemia

== ENCOUNTER → 2016-10-28 | Outpatient (CLI) | payer MEDICARE ==
[~2016-10-28] MED LIST changes: +ALBU17IN INH; +LOPR1TAB6 PO; +NIFE60TA6 PO; +PRED20TA PO
--- NOTE | 2016-10-28 10:29 | REP ---
PA and lateral chest: Comparisons are the PA and lateral chest dated 10/21/[address] dated 09/20/2016. There is subcutaneous emphysema along the left lateral chest wall extending into the left supraclavicular is, as a change from both prior studies. I suspect there is a tiny left pneumothorax measuring approximately 3-4 mm depth over the left lung apex, also an interval change. On the 10/21/2016 plain film study. There is increased radiodensity inferiorly in the right lung. This has improved but not entirely resolved. Cardiac size is normal. The stefan, mediastinum, and bony thorax are unchanged. No rib fractures are identified on these PA and lateral views. Impression: New subcutaneous emphysema along the left lateral chest wall and a new tiny 4 mm left pneumothorax . I note that on the comparison CT there was a small 12 mm spiculated nodule superiorly in the left lung. This nodule is not visible on the PA and lateral plain films. Signed by Bryan Stock MD 10/28/2016 10:20 A
== END ==
LOC: M SMT 10:03
PROVIDERS: ATTEND Thoracic Surgery (Cardiothoracic Vascular Surgery)
DX: C34.12 Malignant neoplasm of upper lobe, left bronchus or lung (principal); J98.2 Interstitial emphysema; J93.9 Pneumothorax, unspecified

== ENCOUNTER → 2016-10-30 | Outpatient (CLI) | payer MEDICARE ==
--- NOTE | 2016-10-30 08:57 | REP ---
CHEST, TWO VIEWS: HISTORY: Malignant neoplasm. COMPARISON: 10/28/2016. Increased density is present in the right lower lobe consistent with infiltrate that is decreased compared to the previous study. The left lung is clear. The previously noted left pneumothorax is not seen. The heart is normal in size. The pulmonary vasculature is normal in appearance. There is a fracture of the left fourth rib. A small amount of subcutaneous emphysema is present overlying the left hemithorax that is decreased compared to the previous study. Impression:1. Right lower lobe infiltrate decreased compared to the previous study. 2. The previous noted small left pneumothorax is not seen in the present examination. Signed by Brady Jacobo MD 10/30/2016 09:02 A
== END ==
LOC: M SMT 08:32
PROVIDERS: ATTEND Thoracic Surgery (Cardiothoracic Vascular Surgery)
DX: C34.12 Malignant neoplasm of upper lobe, left bronchus or lung (principal)

== ENCOUNTER → 2016-11-07 | Outpatient (CLI) | payer MEDICARE ==
--- NOTE | 2016-11-07 12:37 | REP ---
REASON FOR EXAM: History of right lower lobe pneumonia. Comparison exam: Multiple latest 10/30/2016. The focal right lower lobe opacity continues to improve, however, there is a subtle persistent residual. There are no other significant changes. IMPRESSION: Persistent but continually improving right lower lobe opacity appearance. Signed by Michael Acosta DO 11/07/2016 04:44 P
== END ==
LOC: M SMT 10:25
PROVIDERS: ATTEND Internal Medicine Pulmonary Disease
DX: R91.8 Other nonspecific abnormal finding of lung field (principal)

== ENCOUNTER → 2016-11-21 | Outpatient (CLI) | payer MEDICARE ==
--- NOTE | 2016-11-21 10:27 | REP ---
TWO VIEW CHEST: Two views of the chest are performed and compared to prior study of 11/07/2016. Mild streaky infiltrative opacities in the right lower lobe persist, unchanged. There are underlying chronic interstitial changes which are also stable. There is mild elevation of the left hemidiaphragm. The cardiomediastinal silhouette is unchanged. There is calcification and tortuosity of the thoracic aorta. Metallic clips are seen in the left hilum. There are mild degenerative changes of the spine. IMPRESSION: Stable exam with no significant change in mild streaky infiltrate right lower lobe. Signed by Bryan Knutson MD 11/21/2016 01:30 P
== END ==
LOC: M SMT 08:22
PROVIDERS: ATTEND Thoracic Surgery (Cardiothoracic Vascular Surgery)
DX: C34.12 Malignant neoplasm of upper lobe, left bronchus or lung (principal)

== ENCOUNTER 2017-04-10 09:54 | Emergency (ER) | payer MEDICARE ==
[2017-04-10] MEDS ORDERED: PROMETHAZINE 25 MG TAB PO (11:30)
[2017-04-10] MEDS ORDERED: METOCLOPRAMIDE 5 MG TAB PO (11:45)
[2017-04-10] MEDS: KETOROLAC 30 MG/ML VIAL (J1885) IM (11:50)
[2017-04-10] MEDS: METOCLOPRAMIDE 10 MG TAB PO (11:51)
== END 2017-04-10 11:54 | disposition home or self-care (01) ==
LOC: M ED 09:54
DX: R51 Headache (principal); N40.0 Benign prostatic hyperplasia without lower urinary tract symptoms; K57.90 Diverticulosis of intestine, part unspecified, without perforation or abscess without bleeding; Z85.118 Personal history of other malignant neoplasm of bronchus and lung; F17.200 Nicotine dependence, unspecified, uncomplicated; Z79.899 Other long term (current) drug therapy; Z79.82 Long term (current) use of aspirin
CPT/HCPCS: J1885

== ENCOUNTER → 2017-06-10 | Outpatient (CLI) | payer MEDICARE | LOC: M SMT 08:36 | DX: R91.8 Other nonspecific abnormal finding of lung field (principal) | CPT/HCPCS: 71046 ==

== ENCOUNTER → 2020-04-20 | Outpatient (CLI) | payer MEDICARE ==
[~2020-04-20] MED LIST changes: +ASPI-527 PO; -ASPI325T28 PO; +FOLI1TAB11 PO; -FOLI1TAB4 PO; +METH2.5T48 PO; -METH2.5TA PO; +METO1TAB32 PO; +NIFE1TAB51 PO; +NIFE60TA40 PO; -NIFE60TA6 PO; -NIFE60TA61 PO; +SPIR-10 PO; +TORS20TA2 PO; +VALS1TAB68 PO; +VITA100018 PO; -VITA100072 PO; +oxygen
== END ==
LOC: M LABSMTC 11:52
PROVIDERS: ATTEND Internal Medicine Cardiovascular Disease
DX: Z20.822 Contact with and (suspected) exposure to COVID-19 (principal); R06.02 Shortness of breath

== ENCOUNTER 2020-05-09 10:20 | Emergency (ER) | payer MEDICARE ==
[~2020-05-09] VITALS: Ht 167.6 cm; Wt 83.2 kg
[~2020-05-09 10:20] MED LIST changes: -LISI-538 PO; +LISI20TA33 PO
[2020-05-09] MEDS ORDERED: NS 1,000 ML IV ONE (10:45)
--- NOTE | 2020-05-09 11:07 | REP ---
INDICATION: CHEST PAIN COMPARISON: 12/12/2017 TECHNIQUE: Portable AP view of the chest FINDINGS: The mediastinum and cardiac silhouette are stable and within normal limits for portable technique. The lung hernandez demonstrate diffuse chronic stable changes without acute consolidation, effusion, or pneumothorax. Skeletal structures are intact. IMPRESSION: No acute cardiopulmonary process appreciated. No focal consolidation or effusion. <Electronically signed by Bridger Mcclure > 05/09/20 [id number]
[2020-05-09 11:14] LABS: BASO # 0.1 10^3/uL (0.0-0.2); BASO % 0.7 % (0.0-1.0); EOS # 1.1 10^3/uL (0.0-0.5); EOS % 11.3 % (0.0-3.0); HEMATOCRIT 43.7 % (42.0-52.0); HEMOGLOBIN 14.3 g/dl (13.5-17.5); LYMPH # 1.3 10^3/uL (1.5-5.0); LYMPH % 13.9 % (24.0-44.0); MEAN CORPUSCULAR HGB CONC 32.7 g/dl (32.0-36.5); MEAN CORPUSCULAR VOLUME 88.6 fl (80.0-96.0); MONO # 0.6 10^3/uL (0.0-0.8); MONO % 6.1 % (0.0-5.0); NEUTROPHILS # 6.5 10^3/uL (1.5-8.5); NEUTROPHILS % 67.6 % (36.0-66.0); PLATELET COUNT, AUTOMATED 232 10^3/uL (150-450); RED BLOOD COUNT 4.93 10^6/uL (4.30-6.10); WHITE BLOOD COUNT 9.6 10^3/uL (4.0-10.0)
[2020-05-09 11:28] LABS: INR 0.93; PROTHROMBIN TIME 12.7 SECONDS (12.5-14.3)
[2020-05-09] MEDS ORDERED: ASPIRIN 81 MG CHEW TABLET PO ONE ×2 (11:30)
[2020-05-09] MEDS ORDERED: ASPIRIN 81 MG CHEW TABLET As Ordered ONE (11:33)
[2020-05-09 11:49] LABS: BLOOD UREA NITROGEN 32 MG/DL (7-18); CALCIUM LEVEL 9.9 MG/DL (8.8-10.2); CARBON DIOXIDE LEVEL 31 MEQ/L (21-32); CHLORIDE LEVEL 100 MEQ/L (98-107); CPK CREATINE PHOSPHOKINASE 70 U/L (39-308); CREATININE FOR GFR 1.62 MG/DL (0.70-1.30); GLOMERULAR FILTRATION RATE 44.1 (>42); GLUCOSE, FASTING 183 MG/DL (70-100); MB/CK RELATIVE INDEX 1.43 (< OR =4); NT-PRO BNP 427 PG/ML (<450); POTASSIUM SERUM 3.5 MEQ/L (3.5-5.1); SODIUM LEVEL 136 MEQ/L (136-145); TROPONIN I < 0.02 NG/ML (< 0.10)
[2020-05-09] MEDS ORDERED: ISOVUE-370 76% 100ML VIAL As Ordered ONE (12:07)
--- NOTE | 2020-05-09 13:52 | REP ---
INDICATION: Chest pain. COMPARISON: Comparison noncontrast chest CT study September 20, 2016.. TECHNIQUE: Contrast dose: 75 ML of Isovue [address] technique: Helical scanning is acquired and overlapping 1.5 mm and contiguous 3 mm axial images are reformatted. In addition, maximum intensity projection and multiplanar re-formation images are generated in sagittal and coronal imaging projections. FINDINGS: There is good opacification in the pulmonary arterial tree. There is no evidence of vessel cut off or filling defect to suggest pulmonary embolus. Homogeneous opacity is seen in the thoracic aorta. There is no evidence of aneurysm or dissection. Lung window settings demonstrate evidence of emphysematous change in the right upper lobe. Patient is status post left upper lobectomy. There are some inspissated endobronchial secretions in the left lower lobe central bronchi. No infiltrate or lung mass is appreciated. No hilar or mediastinal mass or adenopathy is observed. Normal adrenal glands are seen. An accessory splenule is noted. The visualized upper abdominal structures are otherwise unremarkable. Bone window settings show no bony destructive lesion. The thoracic aorta is tortuous and calcific. IMPRESSION: No CT evidence of pulmonary embolus. Evidence of COPD and prior left upper lobectomy. Otherwise no acute abnormality. <Electronically signed by Vazquez Saab > 05/09/20 [id number]
[2020-05-09 17:11] LABS: CK-MB VALUE MASS < 1.0 NG/ML (<3.6); CPK CREATINE PHOSPHOKINASE 28 U/L (39-308); MB/CK RELATIVE INDEX 3.57 (< OR =4); TROPONIN I < 0.02 NG/ML (< 0.10)
[2020-05-09 17:30] VITALS: BP 172/94
--- NOTE | 2020-05-10 14:37 | ECGEPIP ---
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
== END 2020-05-09 18:16 | disposition home or self-care (01) ==
LOC: M ED 10:20
DX: R07.9 Chest pain, unspecified (principal); R94.31 Abnormal electrocardiogram [ECG] [EKG]; R06.02 Shortness of breath; I71.9 Aortic aneurysm of unspecified site, without rupture; I48.91 Unspecified atrial fibrillation; J44.9 Chronic obstructive pulmonary disease, unspecified; F17.200 Nicotine dependence, unspecified, uncomplicated; Z79.51 Long term (current) use of inhaled steroids; Z79.82 Long term (current) use of aspirin; Z79.899 Other long term (current) drug therapy
CPT/HCPCS: 36415; 71045; 71275; 80048; 82550; 82553; 83605; 83880; 84443; 84484; 85025; 85610; 87040; 93005; 93041; 94760; 99285; Q9967

== ENCOUNTER → 2020-06-27 | Outpatient (CLI) | payer MEDICARE ==
--- NOTE | 2020-06-27 14:06 | REP ---
INDICATION: CKD 3B, URINE RETENTION COMPARISON: None TECHNIQUE: Real time tucker scale ultrasound examination using curved array transducer. FINDINGS: Bilateral kidneys are normal in reniform shape and parenchymal echotexture with increased central sinus fat consistent with chronic renal disease. No hydronephrosis, nephrolithiasis, cystic or renal mass lesion appreciated. Right kidney measures 11.5 x 5.3 x 5.6 cm. Left kidney measures 11.6 x 5.0 x 5.7 cm. IMPRESSION: Chronic medical renal disease. No hydronephrosis. <Electronically signed by Bridger Mcclure > 06/27/20 [id number]
--- NOTE | 2020-06-27 14:08 | REP ---
INDICATION: CKD 3B, URINE RETENTION COMPARISON: None TECHNIQUE: Real time B-mode ultrasound examination using curved array transducer. FINDINGS: Bladder is normal in appearance without wall thickening or mass lesion. Prostate gland is heterogeneous measuring 4.1 x 3.4 x 4.5 cm with mass effect on the base of the bladder Prevoid bladder measures 12.1 x 8.4 x 7.8 cm (518 cc). Postvoid bladder measures 6.4 x 7.9 x 4.7 cm (155 cc) Postvoid residual: 30% IMPRESSION: 1. Prostate gland demonstrates mass effect on the base of the bladder. 2. Abnormal increased postvoid residual volume. <Electronically signed by Bridger Mcclure > 06/27/20 [id number]
== END ==
LOC: M RAD 12:41
PROVIDERS: ATTEND Internal Medicine Nephrology
DX: N18.30 Chronic kidney disease, stage 3 unspecified (principal); R31.9 Hematuria, unspecified

== ENCOUNTER 2020-10-24 11:20 | Inpatient (IN) | payer MEDICARE ==
[~2020-10-24] VITALS: Ht 167.6 cm; Wt 79.5 kg
[2020-10-24 12:10] LABS: BASO # 0.1 10^3/uL (0.0-0.2); BASO % 0.5 % (0.0-1.0); EOS # 0.4 10^3/uL (0.0-0.5); EOS % 2.7 % (0.0-3.0); HEMATOCRIT 41.7 % (42.0-52.0); HEMOGLOBIN 13.6 g/dl (13.5-17.5); LYMPH # 1.1 10^3/uL (1.5-5.0); LYMPH % 6.6 % (24.0-44.0); MEAN CORPUSCULAR HEMOGLOBIN 32.7 pg (27.0-33.0); MEAN CORPUSCULAR HGB CONC 32.6 g/dl (32.0-36.5); MEAN CORPUSCULAR VOLUME 100.2 fl (80.0-96.0); MONO # 0.9 10^3/uL (0.0-0.8); MONO % 5.8 % (2.0-8.0); NEUTROPHILS # 13.2 10^3/uL (1.5-8.5); NEUTROPHILS % 83.5 % (36.0-66.0); PLATELET COUNT, AUTOMATED 231 10^3/uL (150-450); RED BLOOD COUNT 4.16 10^6/uL (4.30-6.10); WHITE BLOOD COUNT 15.8 10^3/uL (4.0-10.0)
--- NOTE | 2020-10-24 12:14 | REP ---
INDICATION: CHEST PAIN. COMPARISON: 05/09/2020 TECHNIQUE: Portable FINDINGS: The technique utilized in obtaining the radiograph has magnified the cardiac silhouette and accentuated the interstitial markings. Right CP angle blunting has developed since the last exam. The cardiomediastinal silhouette is stable. There is no change in the osseous structures. IMPRESSION: There is evidence of a right pleural effusion. There is mild cardiomegaly accentuated by technique. <Electronically signed by Michael Acosta > 10/24/20 [id number]
[2020-10-24] MEDS ORDERED: COMBIVENT RESPIMAT 100-20MCG INHALER 4GM INH ONE (12:25)
[2020-10-24 12:38] LABS: CALCIUM LEVEL 9.7 MG/DL (8.8-10.2); CK-MB VALUE MASS 1.4 NG/ML (<3.6); CREATININE FOR GFR 1.98 MG/DL (0.70-1.30); GLOMERULAR FILTRATION RATE 34.9 (>42); MB/CK RELATIVE INDEX 2.26 (< OR =4); POTASSIUM SERUM 4.5 MEQ/L (3.5-5.1); TROPONIN I 0.03 NG/ML (< 0.10)
[2020-10-24 12:58] LABS: INR 0.92; PROTHROMBIN TIME 12.6 SECONDS (12.5-14.3)
[2020-10-24 12:59] LABS: PARTIAL THROMBOPLASTIN TIME 25.1 SECONDS (24.2-38.5)
[2020-10-24 13:01] LABS: D-DIMER QUANT 1464.68 ng/ml (<500)
--- NOTE | 2020-10-24 13:29 | REP ---
INDICATION: pain eval for DVT. COMPARISON: None. TECHNIQUE: Multiple ultrasonographic images of the deep venous structures of the bilateral lower extremity were obtained from the inguinal ligament to the ankle. Venous compression techniques, color doppler imaging, and augmentation techniques were also obtained where appropriate. As per the ACR guidelines the anterior tibial vein can not be effectively evaluated. Only compression techniques in the calf on the peroneal and posterior tibial veins was attempted/performed. FINDINGS: There is no abnormal echogenic material seen within any of the visualized deep venous structures that would suggest acute thrombosis. Coaptation is unremarkable throughout. Doppler interrogation shows an expected response to respiratory variability and augmentation in the thigh. Compression techniques in the calf were unobtainable. The color flow images show what appears to be a normal vascular pattern throughout the thigh. IMPRESSION: There is no ultrasonographic evidence of deep venous thrombosis involving any of the visualized deep venous structures of the bilateral lower extremity as described above. Due to technical parameters calf vein DVT can not be ruled out. <Electronically signed by Michael Acosta > 10/24/20 [id number]
[2020-10-24] MEDS ORDERED: VENTAER INH (13:57)
[2020-10-24] MEDS ORDERED: PRED5TA PO (13:57)
[2020-10-24] MEDS ORDERED: HYDR-643 PO (13:57)
[2020-10-24] MEDS ORDERED: PANT-23 PO (13:57)
[2020-10-24] MEDS ORDERED: CEFD1CAP8 PO (13:57)
[2020-10-24] MEDS ORDERED: CALC600T18 PO (13:57)
[2020-10-24] MEDS ORDERED: ASPI81TA27 PO (13:57)
[2020-10-24] MEDS ORDERED: FOLI1TAB11 PO (13:57)
[2020-10-24] MEDS ORDERED: ACET-683 PO (13:57)
[2020-10-24] MEDS ORDERED: VITA500T41 PO (13:57)
[2020-10-24] MEDS ORDERED: IRBE300T7 PO (13:57)
[2020-10-24] MEDS ORDERED: SPIR-10 PO (13:57)
[2020-10-24] MEDS ORDERED: MUCI600T31 PO (13:57)
[2020-10-24] MEDS ORDERED: METO1TAB32 PO (13:57)
[2020-10-24] MEDS ORDERED: SAW1CAPS2 PO (13:57)
[2020-10-24] MEDS ORDERED: SYNT300T2 PO (13:57)
[2020-10-24] MEDS ORDERED: TORS100T PO (13:57)
[2020-10-24] MEDS ORDERED: ZOLO100T PO (13:57)
[2020-10-24] MEDS ORDERED: MAALOX 30 ML SUSP *UDC PO PRN (14:35)
[2020-10-24] MEDS ORDERED: MOM 30ML SUSPENSION UDC PO PRN (14:35)
[2020-10-24] MEDS ORDERED: HEPARIN SOD (PORCINE) 5000UNITS/ML 1ML VIAL/SYRINGE IV ONE ×2 (14:45→16:00)
[2020-10-24] MEDS ORDERED: ALBUTEROL 90 MCG/ACT 8GM HFA INHALER INH PRN (15:00)
[2020-10-24] MEDS ORDERED: ACETAMINOPHEN 500 MG TAB PO PRN (15:00)
--- NOTE | 2020-10-24 15:10 | ECGEPIP ---
[facility] - ED Test Date: 2020-10-24 Pat Name: CAROLINE YAÑEZ Department: Room: - Gender: Male [employer]ter [employer]: : 1940 Requested By: TODD Garcia Order Number: [id number] Reading MD: Saeed Gardner Measurements Intervals [place] Rate: 67 P: -12 MT: 218 QRS: 4 QRSD: 140 T: -19 QT: 424 QTc: 448 Interpretive Statements Sinus rhythm with 1st degree AV block with premature atrial complexes Right bundle branch block Left ventricular hypertrophy with repolarization abnormality ( R in aVL ) Inferior infarct , age undetermined SIMILAR TO 05/09/20 Electronically Signed on 10-24-2020 15:10:31 EDT by Saeed Gardner
--- NOTE | 2020-10-24 15:24 | REP ---
INDICATION: frequent falls. COMPARISON: Comparison CT study is from April 10, 2017.. TECHNIQUE: Helical scanning is acquired. 5 mm axial images were reformatted. Coronal MPR images were generated. FINDINGS: Preliminary digital business banking representative radiograph demonstrates a frontal craniotomy defect. On bone window settings it is seen that this was left-sided. There is an aneurysm clip along the anterior edge of the cavernous sinus on the left and extensive vascular calcification is noted in the distal vertebral and distal carotid arteries. Visualized paranasal sinuses are clear. The bony calvarium is otherwise intact. On soft tissue window settings there is generalized volume loss. Fairly extensive small-vessel atherosclerotic changes are noted in the periventricular white matter bilaterally. There is old encephalomalacia in the left inferior frontal and inferior temporal lobes unchanged from the April 09, [address] study[address] Minimal encephalomalacia is seen in the inferior frontal lobe on the right as well also unchanged. There is an old lacunar infarct in the head of the caudate nucleus on the right. This is unchanged as well. No acute infarction is appreciated. There is no evidence of intracranial hemorrhage, extra-axial fluid collection, mass, or midline shift. 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 Old encephalomalacia areas in the inferior frontal lobes bilaterally and the left inferior temporal lobe. 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 Small-vessel atherosclerotic changes and atrophy. Vascular calcification. No acute intracranial abnormality. <Electronically signed by Vazquez Saab > 10/24/20 [id number]
[2020-10-24] MEDS ORDERED: HEPARIN SOD (PORCINE) 5000UNITS/ML 1ML VIAL/SYRINGE IV PRN ×2 (15:25→15:30)
[2020-10-24 16:15] LABS: FOLATE > 24.0 NG/ML; TROPONIN I < 0.02 NG/ML (< 0.10); VITAMIN B12 LEVEL 828 PG/ML
[2020-10-24] MEDS: ACETAMINOPHEN TAB 650MG DOSE (2X325MG) PO PRN (16:46)
[2020-10-24] MEDS: predniSONE 5 MG TAB PO SCH (16:49)
[2020-10-24] MEDS: HEPARIN DRIP 25,000 UNITS in IV 1 EA IV SCH (16:58)
--- NOTE | 2020-10-24 19:34 | HPEPDOC ---
General Date of Admission Oct 24, 2020 at 13:49 Date of Service: Oct 24, 2020 Attending Physician: RAMAKRISHNA ZARAGOZA MD Chief Complaint The patient is a 80-year-old male admitted with a reason for visit of Chest Discomfort. Source: Patient, Family History of Present Illness HPI: Mr. Howard is a 80 year old male who presented to the emergency depart ent for chest pain of approximately 10 days duration. He is accompanied by his daughter who provides some of the history. He states he woke up about 10 days ago with left sided chest pain around the level of his fourth rib. The pain is constant and is worse at night. He denies radiation of the pain and states that nothing makes the pain better or worse. He states he has difficulty lying flat at night due to shortness of breath but denies waking up at night gasping for air. He states that eating food and drinking liquids does not affect the pain. He has taken some tylenol and experience mild relief. He states that the chest pain is not related to his baseline shortness of breath and also denies having a cough. He walks with the assistance of a walker but has been unable to get himself out of bed the last few days and has had frequent falls. His last fall was this morning, he denies losing consciousness or hitting his head. He states that the swelling in his lower extremities and abdomen have also gotten worse in the last few days. He denies nausea, vomiting, diarrhea, constipation, syncope, fever, chills, or recent weight loss. He denies being on blood thinners at home. 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 He denies drinking ETOH or using illicit drugs. He is a retired pharmacist Family history: Father: , brain aneurysm Mother: , congestive heart failure, hypertension Review of systems: Constitutional: Denies having fever, chills, night sweats. Admits to fatigue and 20lb weight loss in last two years that is unintentional and decreased appetite HEENT: denies blurry vision, double vision, or vision loss, denies headaches, difficulty swallowing, swollen lymph nodes. Cardiovascular: Denies any chest pain or palpitations Respiratory: Admits shortness of breath with productive cough and wheezing, increased at home oxygen use Gastrointestinal: Denies nausea, vomiting, constipation, diarrhea, abdominal pain Genitourinary: Denies dysuria, hematuria or hematochezia. Extremities: Admits lower extremity edema Denies: loss of sensation in extremities. Hematology/Oncology: Denies any easy bleeding or bruising. Physical examination: General: Patient is alert and oriented x3. She is tremulous and sitting on the edge of ER bed leaning forward slightly. Eyes: Conjunctiva clear. PERRLA, EOMI. HEENT: Mucous membranes pink and dry. Normocephalic, atraumatic. Trachea midline, no thyromegaly, or lymphadenopathy appreciated. Cardiovascular: Regular rate and rhythm. Distant heart sounds. Not able to appreciate any murmurs Respiratory: Distant lung sounds. Expiratory wheezes noted in bilateral upper lung hernandez anteriorly. Expiratory wheezes appreciated in right upper lobe posteriorly. Increased A/P diameter of chest noted. Abdomen: Soft, bowel sounds positive, no bruits. Nontender on palpation. No organomegaly Extremities: Digital clubbing present b/l on upper extremities. Patients hands are tremulous as I examine her. Trace edema on the R lower extremity, 1+ pitting edema on the L lower extremity Skin: No rashes or ulcerations present. No cyanosis. Imaging: EKG 10/24/20: Sinus rhythm with 1st degree AV block with premature atrial complexes, Right bundle branch block, Left ventricular hypertrophy with repolarization abnormality ( R in aVL ), Inferior infarct , age undetermined, SIMILAR TO 05/09/20 Chest x-ray 10/24/20 impression: There is evidence of a right pleural effusion. There is mild cardiomegaly accentuated by technique. Vascular u/s 10/24/20: There is no ultrasonographic evidence of deep venous thrombosis involving any of the visualized deep venous structures of the bilateral lower extremity as described above. Compression techniques in the calf were unobtainable. Due to technical parameters calf vein DVT can not be ruled out. Head ct 10/24/20: impression: Status post left frontotemporal craniotomy for aneurysm clipping at the anterior aspect of the cavernous sinus on the left. Old encephalomalacia areas in the inferior frontal lobes bilaterally and the left inferior temporal lobe. 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 Small-vessel atherosclerotic changes and atrophy. Vascular calcification. No acute intracranial abnormality. Assessment: Mr. 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 Plan: #Angina pectoralis r/o ND vs PE -The patient states this pain is of 10 days duration -Troponin wnl, repeat wnl, two additional repeats q 8 hours ordered -reviewed EKG: results as above -Ordered V/Q scan, results pending -gave patient heparin 80unit bolus and followed with heparin drip 18units/kg/hr -D-dimer 1464 -ordered ABG for AM #Heart failure right side vs left side -ordered 2D echocardiogram-results pending -BNP 6258 baseline 400's, ordered repeat for am -continue 2gram sodium diet, strict I/0's, daily weighs -continue metoprolol -patient does not use CPAP #Coronary artery disease -working on acquiring cardiovascular records from [facility] -Patient was told he needs CABG and open heart surgery 04/2020 but decided to wait due to COVID #Acute kidney injury -Holding irbesartan, spironolactone, and torsemide -Will continue to hold all other nephrotoxic drugs #PVD -Patient scheduled for angioplasty 10/27/20 with vascular surgery at [email or web address]] to reestablish blood supply to right lower extremity -No pulses palpated below right thigh -Right lower extremity is cooler to the touch than left -Non healing ulcer present on anterior wilson of right lower extremity #Questionable cardiac aneurysm -ordered 2D echocardiogram -may be right ventricle ballooning -Will review patient records from [facility] #Cellulitis of right lower extremity -Continue cefdinir -patient is being treated by Dr. Flores -WBC 15.8, will continue to monitor -Will consider imaging of foot in the future to r/o osteomyelitis if warranted #Frequent falls -patient is on fall risk precautions -likely secondary to right lower ext cellulitis in combination with deconditioning. -Last fall this morning, patient states he did not hit his head -Head CT 10/24/20 showed no acute intracranial abnormalities -patient uses walker to ambulate -holding hydroxyzine #CKD stage 3 -GFR 34.9, holding nephrotoxic medications -patient is followed by Dr. Flores -BUN 62 baseline 50, creatinine 1.98, baseline 1.4 or 1.5 per patient's daughter #COPD -continue albuterol inhaler -current smoker (10 cigarettes/day) started at age 15 -patient is on 3L of oxygen baseline at home #Hypertension -155/67 -continue metoprolol #Depression -holding home medications #DVT prophylaxis: yes continue heparin drip GME ATTESTATION My faculty preceptor for this patient encounter was physically present during the encounter and was fully available. All aspects of the patient interview, examination, medical decision making process, and medical care plan development were reviewed and approved by the faculty preceptor. The faculty preceptor is aware and concurs with the plan as stated in the body of this note and will attest to such by his/her cosignature. Home Medications Scheduled Aspirin (Aspirin EC) 81 Mg Tablet.dr, 81 MG PO QPM, (Reported) Aspirin (Aspirin) 325 Mg Tablet, 325 MG PO ONCE Calcium Carbonate/Vitamin D3 (Calcium 600-Vit D3 400 Tablet) 1 Each Tablet, 1 TAB PO BID, (Reported) Cyanocobalamin (Vitamin B-12) (Vitamin B-12) 500 Mcg Tablet, 500 MCG PO QPM, (Reported) Folic Acid (Folic Acid) 1 Mg Tablet, 1 MG PO BID, (Reported) Guaifenesin (Mucinex) 600 Mg Tab.er.12h, 600 MG PO QHS, (Reported) Levothyroxine Sodium (Synthroid) 300 Mcg Tablet, 300 MCG PO QAM, (Reported) Methylprednisolone (Solu-Medrol 125 mg Vial) 125 Mg/2 Ml Vial, 40 MG IV Q8H Metoprolol Succinate (Metoprolol Succinate) 25 Mg Tab.er.24h, 50 MG PO BID Metoprolol Succinate (Metoprolol Succinate) 50 Mg Tab.er.24h, 50 MG PO BID Pantoprazole Sodium (Pantoprazole Sodium) 40 Mg Tablet.dr, 40 MG PO DAILY, (Reported) Bkvcacwhyutk-Hdiq-Tbvhwvxw,Iso (Zosyn 3.375 gm/50 ml Galaxy) 3.375 Gm/50 Ml Froz.piggy, 1 KEISHA IV Q6H Scheduled PRN Acetaminophen (Acetaminophen) 500 Mg Tablet, 1,000 MG PO Q6H PRN for PAIN LEVEL 1-4, (Reported) Albuterol Sulfate (Ventolin Hfa) 18 Gm Hfa.aer.ad, 2 PUFF INH Q4H PRN for SOB/WHEEZING, (Reported) Allergies Coded Allergies: Gluten Flour (Verified Allergy, Unknown, 10/07/16) A-FIB/CHADSVASC A-FIB History Current/History of A-Fib/PAF?: No Current PO Anticoag Therapy: No Vital Signs Vital Signs Date Time Temp Pulse Resp B/P (MAP) Pulse Ox O2 Delivery O2 Flow Rate FiO2 10/24/20 14:00 10/24/20 13:08 84 10/24/20 12:44 12 10/24/20 12:16 96 Nasal Cannula 3.0 10/24/20 11:22 97.3 Laboratory Data Labs 24H Laboratory Tests 2 10/24/20 11:56: Immature Granulocyte % (Auto) 0.9, Neutrophils (%) (Auto) 83.5H, Lymphocytes (%) (Auto) 6.6L, Monocytes (%) (Auto) 5.8, Eosinophils (%) (Auto) 2.7, Basophils (%) (Auto) 0.5, Neutrophils # (Auto) 13.2H, Lymphocytes # (Auto) 1.1L, Monocytes # (Auto) 0.9H, Eosinophils # (Auto) 0.4, Basophils # (Auto) 0.1, Nucleated Red Blood Cells % (auto) 0.0, Anion Gap 6L, Glomerular Filtration Rate 34.9L, Calcium Level 9.7, Total Creatine Kinase 62, Creatine Kinase MB 1.4, Creatine Kinase MB Relative Index 2.26, Troponin I 0.03, DT-Tpk-Y-Type Natriuretic Peptide 6258H 10/24/20 12:23: Prothrombin Time 12.6, Prothromb Time International Ratio 0.92, Activated Partial Thromboplast Time 25.1, D-Dimer, Quantitative 1464.68H 10/24/20 15:09: Troponin I < 0.02#, Vitamin B12 Level 828, Folate > 24.0 10/24/20 16:34: Ammonia 19 CBC/BMP Laboratory Tests 10/24/20 11:56 Microbiology Microbiology 10/24/20 Respiratory Virus Panel (PCR) (JORGE L) - Final, Complete Plan / VTE VTE Prophylaxis Ordered?: Yes GME ATTESTATION GME ATTESTATION My faculty preceptor for this patient encounter was physically present during the encounter and was fully available. All aspects of the patient interview, examination, medical decision making process, and medical care plan development were reviewed and approved by the faculty preceptor. The faculty preceptor is aware and concurs with the plan as stated in the body of this note and will attest to such by his/her cosignature. ATTENDING NOTE I, Ramakrishna Zaragoza MD, have independently examined this patient and performed my own physical exam, as well as reviewed the documentation and edited where necessary. I have discussed in detail with the resident / student the findings and plan of treatment as documented by the resident / student and edited their note. I agree with their findings and treatment plan and have edited their documentation. KASH HENSON DO Oct 24, 2020 19:34 RAMAKRISHNA ZARAGOZA MD Oct 31, 2020 14:27
[2020-10-24 20:05] VITALS: BP 167/73
[2020-10-24] MEDS: FOLIC ACID 1 MG TAB PO SCH (21:52)
[2020-10-24] MEDS: CEFDINIR 300 MG CAP (OMNICEF) PO SCH (21:53)
[2020-10-24] MEDS: CYANOCOBALAMIN 500 MCG TAB PO SCH (21:53)
[2020-10-24] MEDS: DOCUSATE SODIUM 100MG CAPSULE PO SCH (21:53)
[2020-10-25] VITALS (10 sets, daily range): BP systolic 144–182; BP diastolic 68–92; O2SAT 89–97
[2020-10-25] MEDS: LEVOTHYROXINE 150MCG TABLET (0.15MG) PO SCH (05:48)
[2020-10-25 07:43] LABS: BASO # 0.1 10^3/uL (0.0-0.2); BASO % 0.4 % (0.0-1.0); EOS # 0.2 10^3/uL (0.0-0.5); HEMATOCRIT 39.7 % (42.0-52.0); HEMOGLOBIN 12.9 g/dl (13.5-17.5); LYMPH # 1.2 10^3/uL (1.5-5.0); LYMPH % 10.4 % (24.0-44.0); MEAN CORPUSCULAR HEMOGLOBIN 32.6 pg (27.0-33.0); MEAN CORPUSCULAR HGB CONC 32.5 g/dl (32.0-36.5); MEAN CORPUSCULAR VOLUME 100.3 fl (80.0-96.0); MONO # 0.8 10^3/uL (0.0-0.8); NEUTROPHILS # 9.2 10^3/uL (1.5-8.5); NEUTROPHILS % 79.4 % (36.0-66.0); PLATELET COUNT, AUTOMATED 194 10^3/uL (150-450); RED BLOOD COUNT 3.96 10^6/uL (4.30-6.10); WHITE BLOOD COUNT 11.6 10^3/uL (4.0-10.0)
--- NOTE | 2020-10-25 08:45 | REP ---
INDICATION: rule out PE. COMPARISON: None. TECHNIQUE/RADIOTRACER AND DOSE: After the intravenous administration of 5.4 mCi of technetium 99 M MAA a perfusion lung study was performed. After the inhalation of 1 mCi of technetium 99 M DTPA aerosol a ventilation lung study was performed. FINDINGS: There is clumping of the radiotracer within the tracheobronchial system. There are multiple matching defects bilaterally the largest matching defect is in the right upper lobe but secondary to the clumping of the radiotracer in the tracheobronchial system on the ventilation scan the degree of matching cannot be determined. IMPRESSION: Indeterminate for pulmonary embolism. A pulmonary embolism cannot be ruled out. Contrast-enhanced CT angiography of the chest is recommended. <Electronically signed by Michael Acosta > 10/25/20 [id number]
--- NOTE | 2020-10-25 08:47 | REP ---
INDICATION: chest pain. COMPARISON: Multiple the latest yesterday a portable exam TECHNIQUE: AP and lateral FINDINGS: The technique utilized in obtaining the radiograph has magnified the cardiac silhouette and attenuated the interstitial markings. The cardiomediastinal silhouette is unchanged. Mild cardiomegaly accentuated by technique cannot be ruled out. There is persistent mild right CP angle blunting. No new patchy parenchymal opacities or pleural effusions have developed. There is no change in the osseous structures. IMPRESSION: Persistent slight right CP angle blunting. Small pleural effusion cannot be ruled out. <Electronically signed by Michael Acosta > 10/25/20 [id number]
[2020-10-25] MEDS: NICOTINE 14 MG/24 HR TRANSDERMAL TD SCH (09:00)
[2020-10-25] MEDS: METOPROLOL SUCC *XL* 12.5MG PER 1/2 TAB (TopROL *XL*) PO SCH (09:14)
[2020-10-25] MEDS: DOCUSATE SODIUM 100MG CAPSULE PO SCH ×2 (09:15→22:09)
[2020-10-25] MEDS: FOLIC ACID 1 MG TAB PO SCH ×2 (09:15→22:09)
[2020-10-25] MEDS: PANTOPRAZOLE 40MG TAB (PROTONIX) PO SCH (09:15)
[2020-10-25] MEDS: CEFDINIR 300 MG CAP (OMNICEF) PO SCH (09:15)
[2020-10-25] MEDS: predniSONE 5 MG TAB PO SCH ×2 (09:15→18:48)
[2020-10-25] MEDS: HEPARIN DRIP 25,000 UNITS in IV 1 EA IV SCH (09:32)
[2020-10-25 09:45] LABS: ALBUMIN 3.8 GM/DL (3.2-5.2); ALT/SGPT 24 U/L (12-78); BILIRUBIN,TOTAL 0.5 MG/DL (0.2-1.0); BLOOD UREA NITROGEN 50 MG/DL (7-18); CALCIUM LEVEL 9.6 MG/DL (8.8-10.2); CARBON DIOXIDE LEVEL 27 MEQ/L (21-32); CHLORIDE LEVEL 103 MEQ/L (98-107); CREATININE FOR GFR 1.69 MG/DL (0.70-1.30); GLOMERULAR FILTRATION RATE 41.9 (>42); GLUCOSE, FASTING 130 MG/DL (70-100); MAGNESIUM LEVEL 2.7 MG/DL (1.8-2.4); NT-PRO BNP 7571 PG/ML (<450); POTASSIUM SERUM 4.3 MEQ/L (3.5-5.1); SODIUM LEVEL 141 MEQ/L (136-145); TOTAL PROTEIN 7.1 GM/DL (6.4-8.2); TROPONIN I < 0.02 NG/ML (< 0.10)
[2020-10-25 10:55] LABS: FREE T4 1.27 NG/DL (0.76-1.46)
--- NOTE | 2020-10-25 11:26 | IPNPDOC ---
Date Seen The patient was seen on 10/25/20. Progress Note SUBJECTIVE: Mr. Howard is a pleasant 80 year old male sitting comfortably in bed when I walked into his room this morning, he is not accompanied by his daughter. He states he is doing well and does not have any questions or complaints this morning. He had coffee and juice for breakfast and denies any nausea, vomiting, or diarrhea. He did not have any overnight events and currently has an oxygen saturation of 91% on 2L of oxygen. His baseline oxygen at home is 3.0 liters. He admits to having sharp left sided chest pain (at the level of his fourth rib) when he takes a deep breath in. He denies worsening shortness of breath, dizziness, palpitations, fevers, or chills. OBJECTIVE PHYSICAL EXAMINATION: VITAL SIGNS: Please see below. GENERAL: Elderly male in no acute distress sitting in bed. HEENT: crescent scar on left frontotemporal aspect of skull, sclera non icteric, mucous membranes moist and pink, trachea midline CARDIOVASCULAR: S3 gallop appreciated, regular rate, no murmurs appreciated RESPIRATORY: Bilateral rhonchi noted bilaterally, lung sounds are unchanged from yesterday ABDOMINAL: soft, round, non tender to palpation in all four quadrants : condom catheter visualized EXTREMITIES: 6cm ulcer present on right anterior aspect of lower extremity distal to the knee, healing granulomatous tissue visualized, there is skin breakdown noted between first and second right toes draining serosanguinous fluid, right lower extremity cool to the touch, 0/4 pulses noted on right LE: posterior tibial and dorsalis pedis, 2/4 pulses posterior tibial and dorsalis pedis on left. PSYCHOLOGICAL: alert and oriented x 3 LABORATORY DATA, IMAGING STUDIES, MICROBIOLOGY: Please see below. EKG 10/24/20: Sinus rhythm with 1st degree AV block with premature atrial complexes, Right bundle branch block, Left ventricular hypertrophy with repolarization abnormality ( R in aVL ), Inferior infarct , age undetermined, SIMILAR TO 05/09/20 Chest x-ray 10/24/20 impression: There is evidence of a right pleural effusion. There is mild cardiomegaly accentuated by technique. Vascular u/s 10/24/20: There is no ultrasonographic evidence of deep venous thrombosis involving any of the visualized deep venous structures of the bilateral lower extremity as described above. Compression techniques in the calf were unobtainable. Due to technical parameters calf vein DVT can not be ruled out. Head ct 10/24/20: impression: Status post left frontotemporal craniotomy for aneurysm clipping at the anterior aspect of the cavernous sinus on the left. Old encephalomalacia areas in the inferior frontal lobes bilaterally and the left inferior temporal lobe. 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 Small-vessel atherosclerotic changes and atrophy. Vascular calcification. No acute intracranial abnormality. Chest x-ray 10/25/20: Impression: Persistent slight right CP angle blunting. Small pleural effusion cannot be ruled out. Lung V/Q scan: Impression: Indeterminate for pulmonary embolism. A pulmonary embolism cannot be ruled out. Contrast-enhanced CT angiography of the chest is recommended. Echocardiogram: results pending DVT prophylaxis ordered?: Yes, continue heparin drip ASSESSMENT AND PLAN: Mr. 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 PROBLEMS: #Angina pectoralis PE vs Musculoskeletal -The patient states this pain is of 10 days duration -Troponin wnl, 3 repeats within normal limits. We are able to rule out a myocardial infarction at this time -Patient has history of frequent falls, may have fallen and injured chest wall -Cannot rule out PE/DVT at this time due to indeterminant V/Q scan and LE venous duplex u/s. -ordered repeat LE venous duplex u/s- results pending -reviewed EKG: results as above -continue patient on heparin drip -D-dimer 1464 #Heart failure right side vs left side -BNP 6258 10/24/20, Repeat BNP today is 7571 -continue 2gram sodium diet, strict I/0's, daily weighs -2D echocardiogram results pending -Patient appears "dry on physical exam" but is clinically fluid overloaded -Will review results of echocardiogram and consider diuresing patient tomorrow. -I/O's +120ml in last 24 hours -continue metoprolol #Coronary artery disease -Patient was told he needs CABG and open heart surgery 04/2020 but decided to w ait due to COVID #Acute kidney injury -There is much improvement in his BUN and creatinine levels today when compared to yesterday. BUN: 50 Cr: 1.69 -Discontinued Cefdinir as it may be contributing to kidney injury -Holding irbesartan, spironolactone, and torsemide -Will continue to hold all other nephrotoxic drugs #PVD -Patient scheduled for angioplasty 10/27/20 with vascular surgery at [facility] to reestablish blood supply to right lower extremity -No pulses palpated below right thigh -Right lower extremity is cooler to the touch than left #Questionable cardiac aneurysm -2D echocardiogram results are still pending -The questionable cardiac aneurysm may be right ventricle ballooning -We are working on having his cardiovascular records faxed over from [facility] in [place] #Cellulitis of right lower extremity -discontinued Cefdinir as it may be contributing to kidney injury -WBC count improved today: 11.6 from 15.8 yesterday -the ulcer on anterior wilson is healing well, granulomatous tissue is visualized -Ordered wound care nursing order for skin breakdown between first and second toes on right foot #Frequent falls -likely secondary to right lower extremity cellulitis in combination with deconditioning. -patient is on fall risk precautions and OOB to chair with assistance -He fell yesterday morning and had a negative head CT 10/24/20 -Put in PT consult for therapeutic evaluation -will continue to hold hydroxyzine -B12/folate levels WNL #CKD stage 3 -GFR 41.9 which has improved from 34.9 -Will continue holding nephrotoxic medications -patient is followed by Dr. Flores #COPD -continue albuterol inhaler -currently has oxygen saturation of 91% on 2L NC -patient is on 3L of oxygen baseline at home #Hypertension -Stable 144/80 -continue metoprolol #Depression -holding home medications #Tobacco use disorder -started smoking age 15 -continues to smoke 1/2 ppd -ordered nicotine patch 14 #DVT prophylaxis: yes continue heparin drip DISPOSITION: Mr. Howard appears clinically improved today. We will continue to monitor his kidney function and I/O's. His echocardiogram and repeat venous duplex u/s results are still pending and we are working on having his cardiology records faxed to [facility] from [facility] in [place]. GME ATTESTATION My faculty preceptor for this patient encounter was physically present during the encounter and was fully available. All aspects of the patient interview, examination, medical decision making process, and medical care plan development were reviewed and approved by the faculty preceptor. The faculty preceptor is aware and concurs with the plan as stated in the body of this note and will attest to such by his/her cosignature. VS, I&O, 24H, Fishbone Vital Signs/I&O Vital Signs Date Time Temp Pulse Resp B/P (MAP) Pulse Ox O2 Delivery O2 Flow Rate FiO2 10/25/20 09:14 78 180/92 10/25/20 08:00 97.0 18 91 Nasal Cannula 2.0 l I&O- Last 24 Hours up to 6 AM 10/25/20 05:59 Intake Total 255 ml Output Total 225 ml Balance 30 ml Laboratory Data 24H LABS Laboratory Tests 2 10/24/20 11:56: Immature Granulocyte % (Auto) 0.9, Neutrophils (%) (Auto) 83.5H, Lymphocytes (%) (Auto) 6.6L, Monocytes (%) (Auto) 5.8, Eosinophils (%) (Auto) 2.7, Basophils (%) (Auto) 0.5, Neutrophils # (Auto) 13.2H, Lymphocytes # (Auto) 1.1L, Monocytes # (Auto) 0.9H, Eosinophils # (Auto) 0.4, Basophils # (Auto) 0.1, Nucleated Red Blood Cells % (auto) 0.0, Anion Gap 6L, Glomerular Filtration Rate 34.9L, Calcium Level 9.7, Total Creatine Kinase 62, Creatine Kinase MB 1.4, Creatine Kinase MB Relative Index 2.26, Troponin I 0.03, CA-Has-U-Type Natriuretic Pepti de 6258H 10/24/20 12:23: Prothrombin Time 12.6, Prothromb Time International Ratio 0.92, Activated Partial Thromboplast Time 25.1, D-Dimer, Quantitative 1464.68H 10/24/20 15:09: Troponin I < 0.02#, Vitamin B12 Level 828, Folate > 24.0 10/24/20 16:34: Ammonia 19 10/24/20 22:57: Troponin I < 0.02 10/25/20 00:05: Activated Partial Thromboplast Time 78.1H 10/25/20 07:23: Troponin I < 0.02, Activated Partial Thromboplast Time 68.9H, Immature Granulocyte % (Auto) 0.8, Neutrophils (%) (Auto) 79.4H, Lymphocytes (%) (Auto) 10.4L, Monocytes (%) (Auto) 7.0, Eosinophils (%) (Auto) 2.0, Basophils (%) (Auto) 0.4, Neutrophils # (Auto) 9.2H, Lymphocytes # (Auto) 1.2L, Monocytes # (Auto) 0.8, Eosinophils # (Auto) 0.2, Basophils # (Auto) 0.1, Nucleated Red Blood Cells % (auto) 0.0, Anion Gap 11, Glomerular Filtration Rate 41.9L, Calcium Level 9.6, Magnesium Level 2.7H, Total Bilirubin 0.5, Aspartate Amino Transf (AST/SGOT) 13, Alanine Aminotransferase (ALT/SGPT) 24, Alkaline Phosp hatase 67, EL-Gnk-S-Type Natriuretic Peptide 7571H, Total Protein 7.1, Albumin 3.8, Albumin/Globulin Ratio 1.2, Thyroid Stimulating Hormone (TSH) 3.840H, Free Thyroxine 1.27 CBC/BMP Laboratory Tests 10/24/20 11:56 10/25/20 07:23 Microbiology Microbiology 10/24/20 Respiratory Virus Panel (PCR) ([facility]) - Final, Complete GME ATTESTATION GME ATTESTATION My faculty preceptor for this patient encounter was physically present during the encounter and was fully available. All aspects of the patient interview, examination, medical decision making process, and medical care plan development were reviewed and approved by the faculty preceptor. The faculty preceptor is aware and concurs with the plan as stated in the body of this note and will attest to such by his/her cosignature. ATTENDING NOTE I, Mariana Zaragoza MD, have independently examined this patient and performed my own physical exam, as well as reviewed the documentation and edited where necessary. I have discussed in detail with the resident / student the findings and plan of treatment as documented by the resident / student and edited their note. I agree with their findings and treatment plan and have edited their documentation. KASH HENSON DO Oct 25, 2020 11:26 MARIANA ZARAGOZA MD Oct 31, 2020 14:36
[2020-10-25] MEDS: ACETAMINOPHEN TAB 650MG DOSE (2X325MG) PO PRN (16:38)
[2020-10-25] MEDS: CYANOCOBALAMIN 500 MCG TAB PO SCH (22:09)
[2020-10-26] VITALS (13 sets, daily range): BP systolic 137–183; BP diastolic 70–94; O2SAT 92–95
[2020-10-26] MEDS: HEPARIN DRIP 25,000 UNITS in IV 1 EA IV SCH ×2 (01:58→18:25)
[2020-10-26] MEDS ORDERED: **hydrALAZINE** 10 MG TAB PO ONE (03:40)
[2020-10-26 05:52] LABS: BASO % 0.4 % (0.0-1.0); EOS # 0.3 10^3/uL (0.0-0.5); EOS % 2.6 % (0.0-3.0); HEMATOCRIT 39.3 % (42.0-52.0); LYMPH % 8.9 % (24.0-44.0); MEAN CORPUSCULAR HEMOGLOBIN 33.2 pg (27.0-33.0); MEAN CORPUSCULAR HGB CONC 33.1 g/dl (32.0-36.5); MEAN CORPUSCULAR VOLUME 100.3 fl (80.0-96.0); MONO # 0.8 10^3/uL (0.0-0.8); MONO % 7.5 % (2.0-8.0); NEUTROPHILS # 8.5 10^3/uL (1.5-8.5); NEUTROPHILS % 79.6 % (36.0-66.0); PLATELET COUNT, AUTOMATED 198 10^3/uL (150-450); RED BLOOD COUNT 3.92 10^6/uL (4.30-6.10); WHITE BLOOD COUNT 10.7 10^3/uL (4.0-10.0)
[2020-10-26] MEDS: LEVOTHYROXINE 150MCG TABLET (0.15MG) PO SCH (06:14)
[2020-10-26 06:26] LABS: ALBUMIN 3.5 GM/DL (3.2-5.2); BILIRUBIN,TOTAL 0.4 MG/DL (0.2-1.0); CALCIUM LEVEL 9.5 MG/DL (8.8-10.2); CREATININE FOR GFR 1.32 MG/DL (0.70-1.30); GLOMERULAR FILTRATION RATE 55.7 (>42); MAGNESIUM LEVEL 2.6 MG/DL (1.8-2.4); POTASSIUM SERUM 4.3 MEQ/L (3.5-5.1); TOTAL PROTEIN 6.9 GM/DL (6.4-8.2)
[2020-10-26] MEDS: METOPROLOL SUCC *XL* 12.5MG PER 1/2 TAB (TopROL *XL*) PO SCH (08:16)
[2020-10-26] MEDS: predniSONE 5 MG TAB PO SCH ×2 (08:17→17:07)
[2020-10-26] MEDS: FOLIC ACID 1 MG TAB PO SCH ×2 (08:17→22:18)
[2020-10-26] MEDS: NICOTINE 14 MG/24 HR TRANSDERMAL TD SCH (08:17)
[2020-10-26] MEDS: DOCUSATE SODIUM 100MG CAPSULE PO SCH ×2 (08:18→22:18)
[2020-10-26] MEDS: PANTOPRAZOLE 40MG TAB (PROTONIX) PO SCH (08:18)
--- NOTE | 2020-10-26 09:10 | REP ---
INDICATION: chest pain. COMPARISON: Comparison is made with chest x-ray from October 25, [address] study from May 09, 2020. TECHNIQUE: Two views.. FINDINGS: There is volume loss in the left hemithorax status post thoracotomy and partial pneumonectomy on the left. There are post thoracotomy changes in the left posterolateral rib cage. These findings are unchanged. There is a old healed rib fracture on the right posterolaterally as well. Heart is mildly enlarged. Pulmonary vasculature is not increased. No infiltrate is appreciated. The lateral pleural angles are sharp today. Left hemidiaphragm is slightly elevated as before. No uenice pleural effusion is evident. IMPRESSION: Post thoracotomy partial pneumonectomy changes on the left. Healing right-sided rib fracture. Mild cardiomegaly. Otherwise no acute disease.. <Electronically signed by Vazquez Saab > 10/26/20 [id number]
--- NOTE | 2020-10-26 09:37 | REP ---
INDICATION: suspected DVT in Right leg COMPARISON: None. TECHNIQUE: Knutson scale and color Doppler evaluation using linear high frequency transducer. FINDINGS: Ultrasound examination of the right and left lower extremity deep venous structures from the common femoral vein through the calf/ankle (limited by edema) to include the peroneal, and tibial veins demonstrates normal compressibility flow and wave patterns in response to respiration and augmentation. There is no evidence for deep venous thrombosis. IMPRESSION: No evidence for deep venous thrombosis. <Electronically signed by Bridger Mcclure > 10/26/20 0933
--- NOTE | 2020-10-26 10:13 | ECHO ---
ECHOCARDIOGRAM DATE OF PROCEDURE: 10/25/2020 Age: 80 Gender: Male Height: Weight: REFERRING PHYSICIAN: Toma Aquino D.O. PATIENT LOCATION: Room 3210. REASON FOR STUDY: Aortic aneurysm. 2D MEASUREMENTS: IVS 1.2 cm LV 4.3 cm LVPW 1.1 cm LA 2.7 cm Aorta 4.1 cm IVC 2.1 cm DOPPLER MEASUREMENT Peak velocity across the LVOT 1.6 m/s 2D COMMENTS: 1. Normal left ventricular size and wall thickness, but with a mildly depressed global left ventricular systolic function. The inferior posterior wall appeared to be moderately hypokinetic. The estimated left ventricular systolic ejection fraction is 45% to 50%. 2. Mildly dilated left atrium. Normal right atrium and right ventricle noted in limited views. 3. The atrial septum appeared to be normal without evidence of defect or shunt. 4. Mildly dilated aortic root at 4.1 cm. 5. A small pericardial effusion was noted. No evidence of cardiac tamponade. 6. Mildly calcified aortic valve with normal leaflet excursion. Mildly calcified mitral annulus with normal anterior mitral valve leaflet motion. Normal tricuspid valve. The pulmonic valve also appeared to be normal. The proximal pulmonary artery branches were not well visualized. 7. The inferior vena cava is dilated, central venous pressure is most likely elevated. DOPPLER: Detects mild aortic regurgitation, [id number] mitral regurgitation, mild pulmonic regurgitation. Subjectively, there were findings consistent with grade 1 left ventricular diastolic dysfunction. IMPRESSION: 1. Mild global left ventricle systolic dysfunction with regional wall motion abnormalities. There are findings suggestive of grade 1 left ventricular diastolic dysfunction manifested by abnormal relaxation. 2. Aortic valve sclerosis with mild aortic regurgitation and trivial aortic stenosis. 3. Mitral annular calcification with [id number] mitral regurgitation. 4. Mild pulmonic regurgitation. 5. Mildly dilated aortic root.
[2020-10-26 10:16] LABS: INR 0.94; PROTHROMBIN TIME 12.8 SECONDS (12.5-14.3)
[2020-10-26 10:17] LABS: PARTIAL THROMBOPLASTIN TIME 48.5 SECONDS (24.2-38.5)
[2020-10-26 16:45] LABS: PROTHROMBIN TIME 13.4 SECONDS (12.5-14.3)
[2020-10-26 16:47] LABS: PARTIAL THROMBOPLASTIN TIME 97.5 SECONDS (24.2-38.5)
[2020-10-26] MEDS: ACETAMINOPHEN TAB 650MG DOSE (2X325MG) PO PRN (17:07)
--- NOTE | 2020-10-26 18:52 | IPNPDOC ---
Date Seen The patient was seen on 10/26/20. Progress Note SUBJECTIVE: Mr. Howard is in a pleasant mood this morning when I spoke to him. He states he was able to eat breakfast this morning without nausea, vomiting, or diarrhea. His blood pressure increased to 183 systolic this morning requiring a dose of hydralazine to lower it back to 150 systolic. He does not have any questions or concerns today. He has an oxygen saturation of 92% on 2L NC which is better than his baseline 3L at home. He denies shortness of breath, fevers, chills, dizziness, or palpitations. His records from [facility] have not been received yet. His daughters visited him today. OBJECTIVE PHYSICAL EXAMINATION: VITAL SIGNS: Please see below. GENERAL: Pleasant elderly male sitting comfortably in bed. HEENT: Craniotomy scar on frontotemporal aspect of skull, mucous membranes moist and pink CARDIOVASCULAR: regular rate and rhythm, S3 gallop noted, no murmurs heard RESPIRATORY: equal lung expansion bilaterally, bilateral rhonchi heard, lung sounds improved from yesterday ABDOMINAL: soft, positive bowel sounds, no tenderness to deep palpation in all four quadrants. no organomegaly appreciated : vernon catheter visualized EXTREMITIES: Well healing ulcer on anterior wilson, granulation tissue visualized around ulcer, right lower extremity is erythematous distal to knee and slightly cooler than left lower extremity. R posterior tibial/ dorsalis pedis pulses 0/4 PSYCHOLOGICAL: alert and oriented x 3 LABORATORY DATA, IMAGING STUDIES, MICROBIOLOGY: Please see below. EKG 10/24/20: Sinus rhythm with 1st degree AV block with premature atrial complexes, Right bundle branch block, Left ventricular hypertrophy with repolarization abnormality ( R in aVL ), Inferior infarct , age undetermined, SIMILAR TO 05/09/20 Chest x-ray 10/24/20 impression: There is evidence of a right pleural effusion. There is mild cardiomegaly accentuated by technique. Vascular u/s 10/24/20: There is no ultrasonographic evidence of deep venous thrombosis involving any of the visualized deep venous structures of the bilateral lower extremity as described above. Compression techniques in the calf were unobtainable. Due to technical parameters calf vein DVT can not be ruled out. Head ct 10/24/20: impression: Status post left frontotemporal craniotomy for aneurysm clipping at the anterior aspect of the cavernous sinus on the left. Old encephalomalacia areas in the inferior frontal lobes bilaterally and the left inferior temporal lobe. 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 Small-vessel atherosclerotic changes and atrophy. Vascular calcification. No acute intracranial abnormality. Chest x-ray 10/25/20: Impression: Persistent slight right CP angle blunting. Small pleural effusion cannot be ruled out. Lung V/Q scan: Impression: Indeterminate for pulmonary embolism. A pulmonary embolism cannot be ruled out. Contrast-enhanced CT angiography of the chest is recommended. Echocardiogram: Mild global left ventricle systolic dysfunction with regional wall motion abnormalities. There are findings suggestive of grade 1 left ventricular diastolic dysfunction manifested by abnormal relaxation. Aortic valve sclerosis with mild aortic regurgitation and trivial aortic stenosis. Mitral annular calcification with [id number]-qabixrwn mitral regurgitation. Mild pulmonic regurgitation. Mildly dilated aortic root. DVT prophylaxis ordered?: yes, heparin drip ASSESSMENT AND PLAN: Mr. 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 PROBLEMS: #Angina pectoralis PE vs Musculoskeletal -The patient states this pain is of 10 days duration -We are able to rule out DE and DVT at this time (negative troponins and duplex venous u/s) -Indeterminant V/Q scan, suggested CTA. If patient's BUN and Creatinine improve tomorrow, will order CTA to r/o PE. -continue patient on heparin drip Day 3 -ordered repeat D-dimer for AM -Well's score is 4.5 points- patient at moderate risk for PE #Left sided diastolic heart failure -BNP 7506, slightly improved from yesterday, repeat BNP tomorrow AM -continue 2gram sodium diet, strict I/0's, daily weighs -2D echocardiogram results as above: Right ventricle and atria are normal in size. Findings suggestive of grade 1 left ventricular diastolic dysfunction manifested by abnormal relaxation. Mildly dilated left atrium. -I/O's +570ml cumulative -continue metoprolol #Coronary artery disease -Patient denies chest pain today -Patient was told he needs CABG and open heart surgery 04/2020 but decided to wait due to COVID #Acute kidney injury -Patient's BUN and Creatinine levels improved: BUN 36 and Cr 1.32. -Will order CTA tomorrow pending continued improvement of BUN and Cr -Holding irbesartan, spironolactone, and torsemide -Will continue to hold all other nephrotoxic drugs #PVD -Patient was scheduled for angioplasty 10/27/20 with vascular surgery at [facility] to reestablish blood supply to right lower extremity which he will have to reschedule. -No pulses palpated below right thigh -Right lower extremity is cooler to the touch than left #Questionable cardiac aneurysm -2D echocardiogram results as above. No aneurysm visualized with Echo -Will review cardiovascular records from [facility] in [place]. #Cellulitis of right lower extremity -WBC count improved today: 10.7 -the ulcer on anterior wilson continues to heal well with granulation tissue visualized. -continue nursing wound care for skin breakdown between first and second toes on the right foot #Frequent falls -likely 2/2 to right lower extremity cellulitis in combination with deconditioning. -Patient evaluated by PT/OT-They recommend that patient received rehab upon discharge. He is unstable and required 2 people to assist him for stand pivots. -will continue to hold hydroxyzine #CKD stage 3 -GFR 55.7 which has improved from yesterday (41.9) -Will continue holding nephrotoxic medications -patient is followed by Dr. Flores #COPD -continue albuterol inhaler -currently has oxygen saturation of 91% on 2L NC -patient is on 3L of oxygen baseline at home #Hypertension -Stable 144/80 -continue metoprolol #Depression -holding home medications #Tobacco use disorder -started smoking age 15 -continues to smoke 1/2 ppd -ordered nicotine patch 14 #DVT prophylaxis: yes continue heparin drip Day 3 DISPOSITION: We will continue to monitor patient's kidney function overnight. Pending improvement, we will order a CTA to rule out PE. Spoke to two of his three daughters, they would ideally like their father to be discharged home but are open to him receiving acute rehab first if need be. Patient was evaluated by PT/OT today and they recommend continued rehab following discharge. GME ATTESTATION My faculty preceptor for this patient encounter was physically present during the encounter and was fully available. All aspects of the patient interview, examination, medical decision making process, and medical care plan development were reviewed and approved by the faculty preceptor. The faculty preceptor is aware and concurs with the plan as stated in the body of this note and will attest to such by his/her cosignature. VS, I&O, 24H, Fishbone Vital Signs/I&O Vital Signs Date Time Temp Pulse Resp B/P (MAP) Pulse Ox O2 Delivery O2 Flow Rate FiO2 10/26/20 16:00 97.4 77 16 146/84 (104) 100 Nasal Cannula 2.0 I&O- Last 24 Hours up to 6 AM 10/26/20 06:00 Intake Total 960 ml Output Total 1025 ml Balance -65 ml Laboratory Data 24H LABS Laboratory Tests 2 10/26/20 05:19: Immature Granulocyte % (Auto) 1.0, Neutrophils (%) (Auto) 79.6H, Lymphocytes (%) (Auto) 8.9L, Monocytes (%) (Auto) 7.5, Eosinophils (%) (Auto) 2.6, Basophils (%) (Auto) 0.4, Neutrophils # (Auto) 8.5, Lymphocytes # (Auto) 1.0L, Monocytes # (Auto) 0.8, Eosinophils # (Auto) 0.3, Basophils # (Auto) 0.0, Nucleated Red Blood Cells % (auto) 0.0, Activated Partial Thromboplast Time 53.8H, Anion Gap 9, Glomerular Filtration Rate 55.7, Calcium Level 9.5, Magnesium Level 2.6H, Total Bilirubin 0.4, Aspartate Amino Transf (AST/SGOT) 18, Alanine Aminotransferase (ALT/SGPT) 28, Alkaline Phosphatase 80, AC-Qke-Y-Type Natriuretic Peptide 7506H, Total Protein 6.9, Albumin 3.5, Albumin/Globulin Ratio 1.0 10/26/20 09:50: Activated Partial Thromboplast Time 48.5H, Prothrombin Time 12.8, Prothromb Time International Ratio 0.94 10/26/20 16:25: Activated Partial Thromboplast Time 97.5H, Prothrombin Time 13.4, Prothromb Time International Ratio 1.00 CBC/BMP Laboratory Tests 10/26/20 05:19 Microbiology Microbiology 10/26/20 Stool Occult Blood ([facility]) - Final, Complete 10/25/20 Stool Occult Blood ([facility]) - Final, Complete 10/24/20 Respiratory Virus Panel (PCR) ([facility]) - Final, Complete GME ATTESTATION GME ATTESTATION My faculty preceptor for this patient encounter was physically present during the encounter and was fully available. All aspects of the patient interview, examination, medical decision making process, and medical care plan development were reviewed and approved by the faculty preceptor. The faculty preceptor is aware and concurs with the plan as stated in the body of this note and will attest to such by his/her cosignature. ATTENDING NOTE I, Mariana Zaragoza MD, have independently examined this patient and performed my own physical exam, as well as reviewed the documentation and edited where necessary. I have discussed in detail with the resident / student the findings and plan of treatment as documented by the resident / student and edited their note. I agree with their findings and treatment plan and have edited their documentation. KASH HENSON DO Oct 26, 2020 18:52 MARIANA ZARAGOZA MD Oct 31, 2020 14:41
[2020-10-26] MEDS: CYANOCOBALAMIN 500 MCG TAB PO SCH (22:18)
[2020-10-26 23:04] LABS: PROTHROMBIN TIME 13.4 SECONDS (12.5-14.3)
[2020-10-26 23:06] LABS: PARTIAL THROMBOPLASTIN TIME 89.7 SECONDS (24.2-38.5)
[2020-10-27] VITALS (20 sets, daily range): BP systolic 135–152; BP diastolic 64–95; O2SAT 86–97
[2020-10-27 05:44] LABS: BASO # 0.1 10^3/uL (0.0-0.2); BASO % 0.4 % (0.0-1.0); EOS # 0.3 10^3/uL (0.0-0.5); HEMATOCRIT 37.9 % (42.0-52.0); HEMOGLOBIN 12.7 g/dl (13.5-17.5); LYMPH # 1.2 10^3/uL (1.5-5.0); LYMPH % 7.8 % (24.0-44.0); MEAN CORPUSCULAR HEMOGLOBIN 33.2 pg (27.0-33.0); MEAN CORPUSCULAR HGB CONC 33.5 g/dl (32.0-36.5); MEAN CORPUSCULAR VOLUME 99.2 fl (80.0-96.0); MONO % 6.2 % (2.0-8.0); NEUTROPHILS # 12.8 10^3/uL (1.5-8.5); NEUTROPHILS % 82.3 % (36.0-66.0); PLATELET COUNT, AUTOMATED 206 10^3/uL (150-450); RED BLOOD COUNT 3.82 10^6/uL (4.30-6.10); WHITE BLOOD COUNT 15.6 10^3/uL (4.0-10.0)
[2020-10-27 05:49] LABS: INR 1.04; PROTHROMBIN TIME 13.8 SECONDS (12.5-14.3)
[2020-10-27 05:51] LABS: PARTIAL THROMBOPLASTIN TIME 89.3 SECONDS (24.2-38.5)
[2020-10-27 05:52] LABS: D-DIMER QUANT 925.09 ng/ml (<500)
[2020-10-27 06:14] LABS: ALBUMIN 3.3 GM/DL (3.2-5.2); BILIRUBIN,TOTAL 0.5 MG/DL (0.2-1.0); CALCIUM LEVEL 9.1 MG/DL (8.8-10.2); CREATININE FOR GFR 1.24 MG/DL (0.70-1.30); GLOMERULAR FILTRATION RATE 59.9 (>42); MAGNESIUM LEVEL 2.3 MG/DL (1.8-2.4); POTASSIUM SERUM 4.6 MEQ/L (3.5-5.1); TOTAL PROTEIN 6.7 GM/DL (6.4-8.2)
[2020-10-27] MEDS: LEVOTHYROXINE 150MCG TABLET (0.15MG) PO SCH (06:45)
[2020-10-27] MEDS: NICOTINE 14 MG/24 HR TRANSDERMAL TD SCH (09:00)
--- NOTE | 2020-10-27 09:09 | REP ---
INDICATION: increased BNP. COMPARISON: Comparison chest x-ray October 26, 2020. TECHNIQUE: Two views.. FINDINGS: Cardiomegaly is again observed. There are old healed rib fractures bilaterally. Left hemidiaphragm remains somewhat elevated. There is very slight blunting of the posterior pleural angle on the left. These findings are unchanged. No infiltrate is noted. Pulmonary vasculature is not increased. The aorta is tortuous. Postthoracotomy changes are noted on the left as before. IMPRESSION: Cardiomegaly. Postthoracotomy changes on the left. Otherwise no acute disease.. <Electronically signed by Vazquez Saab > 10/27/20 [id number]
[2020-10-27] MEDS: DOCUSATE SODIUM 100MG CAPSULE PO SCH ×2 (09:22→20:28)
[2020-10-27] MEDS: METOPROLOL SUCC *XL* 12.5MG PER 1/2 TAB (TopROL *XL*) PO SCH (09:22)
[2020-10-27] MEDS: PANTOPRAZOLE 40MG TAB (PROTONIX) PO SCH (09:22)
[2020-10-27] MEDS: FOLIC ACID 1 MG TAB PO SCH ×2 (09:23→20:28)
[2020-10-27] MEDS: predniSONE 5 MG TAB PO SCH ×2 (09:23→19:19)
[2020-10-27] MEDS: ACETAMINOPHEN TAB 650MG DOSE (2X325MG) PO PRN (09:34)
[2020-10-27] MEDS: HEPARIN DRIP 25,000 UNITS in IV 1 EA IV SCH (10:23)
[2020-10-27] MEDS ORDERED: TORSEMIDE 20 MG TAB PO ONE ×2 (11:00→17:00)
[2020-10-27] MEDS ORDERED: ISOVUE-370 76% 100ML VIAL As Ordered ONE (11:28)
--- NOTE | 2020-10-27 12:08 | REP ---
INDICATION: Pulmonary embolism. COMPARISON: Comparison study May 09, 2020.. TECHNIQUE: Contrast dose: 75 ML of Isovue [address] technique: Helical scanning is acquired and overlapping 1.5 mm and contiguous 3 mm axial images are reformatted. In addition, maximum intensity projection and multiplanar re-formation images are generated in sagittal and coronal imaging projections. FINDINGS: There is good opacification in the pulmonary arterial tree. There is no evidence of vessel cut off or filling defect to suggest pulmonary embolus. Homogeneous opacity is seen in the thoracic aorta. There is no evidence of aneurysm or dissection. There is no evidence of pleural or pericardial effusion. No hilar or mediastinal mass or adenopathy is observed. Post thoracotomy partial pneumonectomy changes are noted on the left. Lung window settings demonstrate advanced emphysematous changes in the right upper lobe and some interstitial disease in the right middle lobe and right upper and lower lobes. There are subtle infiltrative changes in the left lower lobe. There are some inspissated endobronchial secretions in the left lower lobe bronchi. In the upper abdomen, normal adrenal glands are observed. There is an accessory splenule. The visualized upper abdominal structures are otherwise unremarkable. Old healed rib fractures are noted on the left. IMPRESSION: No CT evidence of pulmonary embolus. Status post left thoracotomy partial pneumonectomy. Subtle infiltrate left base with inspissated endobronchial secretions. Emphysematous changes right upper lobe and right lung interstitial changes. <Electronically signed by Vazquez Saab > 10/27/20 [id number]
--- NOTE | 2020-10-27 14:18 | CR ---
ADVANCED WOUND CARE CONSULTATION DATE: 10/27/2020 REQUESTING PHYSICIAN: Dr. Toma Huitron REASON FOR CONSULTATION: Right lower extremity wound care. Wound Care Telemedicine provides a visual assessment of a wound without the benefit of physical examination. It can assist with establishing a diagnosis and etiology. This allows for initial treatment plan. As wounds often change, it may be necessary to modify the original care. Our recommendation is periodic wound reassessment to monitor treatment. Failure to comply may result in a nonhealing wound, possible complications and/or poor outcome. The recommendations given will serve as a treatment option plan. As I will not be following this patient, this care plan will require the attending physician to give and sign the orders. Upon discharge, outpatient follow-up can be scheduled at our [facility]. HISTORY OF PRESENT ILLNESS: A 80-year-old male admitted with right lower extremity wounds after he fell and a question of pulmonary embolus. He was prophylactically heparinized. Lung scans are pending. Patient has a wound involving the webspace between the right great toe and the second toe. He also has a traumatic wound involving the right patellar region and the right pretibial area. He is not a diabetic. PHYSICAL EXAMINATION: The patient appears comfortable and pulmonary emboli often times present with chest pain, tachycardia and hypoxia. Arterial blood gas should reflect acidosis and vital signs could point to this. In terms of wound care, the wound between the right great toe and the second toe which measures 2.0 cm x 1.0 cm with a depth of 0.2 cm. should be cleansed with Vashe Wound Cleanser utilizing a 4 x 4 for 10 minutes and then rinsed with saline and pat dry. Iodosorb a cadexomer iodine should be applied directly to the wound and covered with a small foam dressing placed between the digits. This can be changed on a daily basis. In terms of the right knee, there is a dry fixed eschar measuring 3.0 cm x 1.0 cm. Ruthie-wound shows no erythema, maceration or signs of drainage. Treatment for this is to debride this eschar, removing it completely. The pretibial wound measures 5.0 x 1.2 cm. This shows dry fixed full-thickness eschar of necrotic skin. There is no fluctuation noted. Treatment is sharp debridement removing the eschar. This will allow for full evaluation of the wound and appropriate treatment. This is a bedside procedure using Lidocaine 2% without Epinephrine injected below the eschar and using scissors, forceps and a #15 scalpel blade. Once this has been excised, the wound should be cleansed with Vashe and then Hydrofera blue classic cut to the size of the wound covered with an Optilock dressing. These should be secured with a Kerlix or Ruthie, avoiding tape to the skin. An arterial ultrasound of the right lower extremity should be obtained. A consult with Interventional Radiology, Dr. Mai, should be obtained. A consult with Podiatry, Dr. Jefferson, should be obtained. I spoke directly to Dr. Jefferson regarding debridement and Dr. Huitron regarding proposed treatment. Records of the patient's vascular workup in [place] should be obtained. I do not have any information on this but by history I was told that the patient had a CT angio and was scheduled for an arteriogram and/or angioplasty at [facility] in [place]. This would suggest occlusive disease requiring intervention. As the patient is presently hospitalized it would be more efficacious to do the procedure at this hospital at this time. In interventional radiology consult with Dr. Mai should be placed. I have spoken to her regarding this. Patient's diet should be supplemented with Ensure and Misbah. No indication for antibiotic therapy at this time. [facility]
--- NOTE | 2020-10-27 16:23 | IPNPDOC ---
Date Seen The patient was seen on 10/27/20. Progress Note SUBJECTIVE: Mr. Howard was sleeping in bed when I visited him this morning. He did not have any overnight events and has an oxygen saturation of 89% on 2L NC which is better than his baseline 3L at home. He states that his daughters visited him yesterday but did not initiate much conversation other than that. He appears sleepy this morning but is agreeable to answer my questions. He states that he ate a sandwich for dinner last night but cannot remember what type of sandwich. He denies shortness of breath, chest pain, fevers, chills, dizziness, or palpitations. The skin breakdown on his right foot appears worse this morning and the patient's WBC is elevated. I will consult wound care today and discuss this with Dr. Pierre. OBJECTIVE PHYSICAL EXAMINATION: VITAL SIGNS: Please see below. GENERAL: Elderly man with eyes closed lying in bed HEENT: [place] shaped scar on left frontotemporal region of head, trachea midline, mucous membranes pink and moist CARDIOVASCULAR: Sinus rhythm, S3 gallop noted, no murmurs or rubs appreciated RESPIRATORY: decreased inspiratory effort bilaterally, rhonchi heard bilaterally, lung sounds are unchanged from yesterday ABDOMINAL: soft, nontender to palpation in all four quadrants, no organomegaly EXTREMITIES: Eschar noted on right knee and pretibial region of right lower extremity. There is granulation tissue visualized. The skin appears erythematous distal to the knee. The skin breakdown between the first and second toe of the right foot appears thicker and moist. There is slight pungent smell appreciated. No pulses are felt on right lower extremity distal to knee. PSYCHOLOGICAL: Alert and oriented x 3 LABORATORY DATA, IMAGING STUDIES, MICROBIOLOGY: Please see below. Chest x-ray: 10/27/20: Impression: Cardiomegaly. Postthoracotomy changes on the left. Otherwise no acute disease. Angiography CT: 10/27/20: Impression: No CT evidence of pulmonary embolus. Status post left thoracotomy partial pneumonectomy. Subtle infiltrate left base with inspissated endobronchial secretions. Emphysematous changes right upper lobe and right lung interstitial changes. Echocardiogram: Echocardiogram: Mild global left ventricle systolic dysfunction with regional wall motion abnormalities. There are findings suggestive of grade 1 left ventricular diastolic dysfunction manifested by abnormal relaxation. Aortic valve sclerosis with mild aortic regurgitation and trivial aortic stenosis. Mitral annular calcification with [id number] mitral regurgitation. Mild pulmonic regurgitation. Mildly dilated aortic root. DVT prophylaxis ordered?: yes, continue subcutaneous heparin ASSESSMENT AND PLAN: Mr. 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 PROBLEMS: #Angina pectoralis likely 2/2 Musculoskeletal -The patient states this pain is of 10 days duration -We are able to rule out SD, PE and DVT at this time (negative troponins, duplex venous u/s, and CTA) -d/c heparin drip and started subcutaneous heparin -This is likely musculoskeletal in origin. The patient has frequent falls and has healing rib fracture bilaterally as seen on Chest x-ray. #Left sided diastolic heart failure [place] [id number], His IOs for yesterday were +602 ml -continue 2gram sodium diet, strict I/0's, daily weighs -2D echocardiogram results as above: Right ventricle and atria are normal in size. Findings suggestive of grade 1 left ventricular diastolic dysfunction manifested by abnormal relaxation. Mildly dilated left atrium. -started 1500cc restricted fluid -continue metoprolol -Started torsemide 20mg BID for 10/27/20 and qd for 10/28/20 #Coronary artery disease -Patient denies chest pain today with inspiration or at rest -Received patient records from [facility] -He has severe three vessel coronary artery disease including a large coronary aneurysm. He needs surgical revascularization and repair of aneurysm at [facility]. -His family was told the above mentioned in 04/2020. They decided to wait on surgery until after COVID. #Acute kidney injury -Patient's BUN and Creatinine levels improved today -continue to hold irbesartan and spironolactone -started torsemide to diurese patient. Patient had CTA today. Will assess his kidney function tomorrow. #PVD -Patient was scheduled for angioplasty 10/27/20 with vascular surgery at [facility] to reestablish blood supply to right lower extremity which he will have to reschedule. -Dr. Parra is not available until Friday. He will have to follow up on this as an outpatient if he is discharged before 10/30/20. #Large coronary artery aneurysm -2D echocardiogram results as above. No aneurysm visualized with Echo -Received patient records from [facility], he has a large coronary artery aneurysm which needs to be repaired. #Vascular ulcerations -Patient has had these for a few months- per patient's daughter -right lower extremity: located on knee, pretibial region, inbetween first and second toes -WBC count increased today to 15.6 -Consulted Dr. Pierre and Dr. Jefferson, we appreciate their input on this patient -Patient was due to have angioplasty performed at [facility] today. Dr. Parra is not available until 10/30/20. -Patient would highly benefit from having vascular surgery to reintroduce blood flow to right lower extremity. This would accelerate healing of ulcerations -Dr. Jefferson debrided two eschars on patient right lower extremity -Will continue to follow daily wound care orders per Dr. Pierre #Frequent falls -likely multifactorial 2/2 PVD, deconditioning, medications -Patient has old healing rib fractures bilaterally on chest x-ray -Patient evaluated by PT/OT-They recommend that patient received rehab upon discharge. He is unstable and required 2 people to assist him for stand pivots. -will continue to hold hydroxyzine -Patient had ARU admission screening today and will likely be discharged to rehab #CKD stage 3 -GFR has improved today -Ordered CMP for morning, will review labs then -patient is followed by Dr. Flores #COPD -continue albuterol inhaler -currently has oxygen saturation of 89% on 2L NC -patient is on 3L of oxygen baseline at home #Hypertension -Stable 135/82 -continue metoprolol #Depression -holding home medications #Tobacco use disorder -started smoking age 15 -continues to smoke 1/2 ppd -ordered nicotine patch 14 #DVT prophylaxis: continue subcutanous heparin DISPOSITION: The patient will likely be discharged into acute rehab. He had an ARU admission screening today. Patient BNP was elevated today and echo showed left ventricular diastolic dysfunction. We will continue to diurese patient with Torsemide. Dr. Pierre and Dr. Jefferson were consulted today. We appreciate thei r input. Dr. Banarjee is not available until friday, patient will need outpatient follow up for angioplasty. GME ATTESTATION My faculty preceptor for this patient encounter was physically present during the encounter and was fully available. All aspects of the patient interview, examination, medical decision making process, and medical care plan development were reviewed and approved by the faculty preceptor. The faculty preceptor is aware and concurs with the plan as stated in the body of this note and will attest to such by his/her cosignature. VS, I&O, 24H, Fishbone Vital Signs/I&O Vital Signs Date Time Temp Pulse Resp B/P (MAP) Pulse Ox O2 Delivery O2 Flow Rate FiO2 10/27/20 15:00 96 Nasal Cannula 4.0 10/27/20 13:33 97.2 76 20 147/65 (92) I&O- Last 24 Hours up to 6 AM 10/27/20 06:00 Intake Total 1737.5 ml Output Total 950 ml Balance 787.5 ml Laboratory Data 24H LABS Laboratory Tests 2 10/26/20 16:25: Prothrombin Time 13.4, Prothromb Time International Ratio 1.00, Activated Partial Thromboplast Time 97.5H 10/26/20 22:41: Prothrombin Time 13.4, Prothromb Time International Ratio 1.00, Activated Partial Thromboplast Time 89.7H 10/27/20 04:35: Prothrombin Time 13.8, Prothromb Time International Ratio 1.04, Activated Partial Thromboplast Time 89.3H, Immature Granulocyte % (Auto) 1.3, Neutrophils (%) (Auto) 82.3H, Lymphocytes (%) (Auto) 7.8L, Monocytes (%) (Auto) 6.2, Eosinophils (%) (Auto) 2.0, Basophils (%) (Auto) 0.4, Neutrophils # (Auto) 12.8H, Lymphocytes # (Auto) 1.2L, Monocytes # (Auto) 1.0H, Eosinophils # (Auto) 0.3, Basophils # (Auto) 0.1, Reticulocyte # (auto) 91.5H, Nucleated Red Blood Cells % (auto) 0.0, Differential Slide Review Report, Peripheral Blood Smear Path Consult PERIPHERAL SMEAR, Percent Reticulocyte Count 2.4H, Reticulocyte Hemoglobin Equivalent 39.6H, D-Dimer, Quantitative 925.09H, Anion Gap 11, Glomerular Filtration Rate 59.9, Calcium Level 9.1, Magnesium Level 2.3, Total Bilirubin 0.5, Aspartate Amino Transf (AST/SGOT) 25, Alanine Aminotransferase (ALT/SGPT) 24, Alkaline Phosphatase 81, VB-Ezw-J-Type Natriuretic Peptide 96034N, Total Protein 6.7, Albumin 3.3, Albumin/Globulin Ratio 1.0 CBC/BMP Laboratory Tests 10/27/20 04:35 Microbiology Microbiology 10/26/20 Stool Occult Blood (JORGE L) - Final, Complete 10/25/20 Stool Occult Blood (JORGE L) - Final, Complete 10/24/20 Respiratory Virus Panel (PCR) (JORGE L) - Final, Complete GME ATTESTATION GME ATTESTATION My faculty preceptor for this patient encounter was physically present during the encounter and was fully available. All aspects of the patient interview, examination, medical decision making process, and medical care plan development were reviewed and approved by the faculty preceptor. The faculty preceptor is aware and concurs with the plan as stated in the body of this note and will attest to such by his/her cosignature. ATTENDING NOTE I, Mariana Zaragoza MD, have independently examined this patient and performed my own physical exam, as well as reviewed the documentation and edited where necessary. I have discussed in detail with the resident / student the findings and plan of treatment as documented by the resident / student and edited their note. I agree with their findings and treatment plan and have edited their documentation. KASH HENSON DO Oct 27, 2020 16:23 MARIANA ZARAGOZA MD Oct 31, 2020 14:49
--- NOTE | 2020-10-27 17:05 | CR ---
CONSULTATION DATE: 10/27/2020 REASON FOR CONSULTATION: Leg ulcerations. Michael Howard is a 80-year-old male who is admitted due to chest discomfort. He was found to have ulcerations on his legs. His daughters are present in the room. They state that the leg wounds have been present several months and the toe ulceration approximately 1 month. There were plans for him to have vascular intervention in [place]; however, this has been postponed. MEDICAL HISTORY: Significant for: 1. Peripheral vascular disease (PVD). 2. Chronic obstructive pulmonary disease (COPD). 3. Coronary artery disease. 4. Squamous cell carcinoma. 5. Parotid tumors. 6. Hypothyroidism. 7. Hypertension. 8. Rheumatoid arthritis. 9. Gastroesophageal reflux disease (GERD). 10. Depression. 11. Chronic kidney disease, stage III. 12. Cerebral aneurysm. SURGICAL HISTORY: 1. Craniotomy. 2. Left lower lobe lobectomy. 3. Cataract surgery. 4. Retina surgery. SOCIAL HISTORY: Positive for tobacco use. Denies alcohol. FAMILY HISTORY: Noncontributory.. REVIEW OF SYSTEMS: Negative for nausea, vomiting, fever, chills. Vital signs are reviewed. He has been afebrile. Labs are reviewed. White blood cell count today is 15.6. LOWER EXTREMITY EXAMINATION: Pedal pulses are nonpalpable. There is an ulceration to the first interspace with some necrotic tissue. There is delayed capillary refill to the 2nd toe with slight coolness to palpation. There is an ulceration on the anterior wilson with some nonviable tissue as well. ASSESSMENT: A 80-year-old male with peripheral vascular disease and vascular ulcerations. TREATMENT: Bedside debridement was performed, excisional, using a #10 blade and a dermal curette. There was 6 mL of 1% lidocaine plain injected to the right wilson prior to debridement. Wound debridement included subcutaneous tissue. Wound care orders were written as directed by Dr. Pierre. Agree with his plan. Ultimately, patient will need vascular intervention to heal these wounds, be it here or in [place].
[2020-10-27] MEDS: HEPARIN SOD (PORCINE) 5000UNITS/ML 1ML VIAL/SYRINGE SQ SCH (20:28)
[2020-10-27] MEDS: CYANOCOBALAMIN 500 MCG TAB PO SCH (20:28)
--- NOTE | 2020-10-27 22:19 | ECGEPIP ---
[facility] Test Date: 2020-10-25 Pat Name: CAROLINE YAÑEZ Department: Room: [place] [address] Gender: Male Pre Billing Specialist: DEBBIE : [id number] Requested By: KASH Jackson Order Number: [id number] Reading MD: Harsh Garcia Measurements Intervals [place] Rate: 76 P: 59 VA: 200 QRS: -3 QRSD: 136 T: -34 QT: 408 QTc: 459 Interpretive Statements Sinus rhythm with premature atrial complexes Right bundle branch block Probable prior inferior wall myocardial infarction Left ventricular hypertrophy with repolarization abnormality No significant change since prior tracing of October 24, 2020 Electronically Signed on 10-27-2020 22:19:09 EDT by Harsh Garcia
[2020-10-28] VITALS (9 sets, daily range): BP systolic 111–141; BP diastolic 62–80; O2SAT 91–93
[2020-10-28 05:17] LABS: BASO % 0.2 % (0.0-1.0); EOS # 0.2 10^3/uL (0.0-0.5); HEMATOCRIT 37.8 % (42.0-52.0); HEMOGLOBIN 12.3 g/dl (13.5-17.5); LYMPH # 1.2 10^3/uL (1.5-5.0); LYMPH % 7.3 % (24.0-44.0); MEAN CORPUSCULAR HEMOGLOBIN 32.6 pg (27.0-33.0); MEAN CORPUSCULAR HGB CONC 32.5 g/dl (32.0-36.5); MEAN CORPUSCULAR VOLUME 100.3 fl (80.0-96.0); MONO # 1.2 10^3/uL (0.0-0.8); MONO % 7.4 % (2.0-8.0); NEUTROPHILS # 13.3 10^3/uL (1.5-8.5); PLATELET COUNT, AUTOMATED 205 10^3/uL (150-450); RED BLOOD COUNT 3.77 10^6/uL (4.30-6.10); WHITE BLOOD COUNT 16.1 10^3/uL (4.0-10.0)
[2020-10-28] MEDS: LEVOTHYROXINE 150MCG TABLET (0.15MG) PO SCH (05:22)
[2020-10-28 05:43] LABS: ALBUMIN 3.3 GM/DL (3.2-5.2); BILIRUBIN,TOTAL 0.6 MG/DL (0.2-1.0); CALCIUM LEVEL 9.5 MG/DL (8.8-10.2); CREATININE FOR GFR 1.62 MG/DL (0.70-1.30); MAGNESIUM LEVEL 2.4 MG/DL (1.8-2.4); POTASSIUM SERUM 4.6 MEQ/L (3.5-5.1); TOTAL PROTEIN 7.7 GM/DL (6.4-8.2)
[2020-10-28] MEDS ORDERED: VANCOMYCIN HCL 1,000 MG, VIAL MATE ADAPTER 1 EACH in NS 250 ML IV SCH (07:45)
[2020-10-28] MEDS ORDERED: TORSEMIDE 20 MG TAB PO SCH (09:00)
[2020-10-28] MEDS: PIPERACILLIN/TAZOBACTAM SOD 3.375 GM in D5W MINI-BAG PLUS 50 ML IV SCH ×3 (09:19→20:33)
[2020-10-28] MEDS: METOPROLOL SUCC *XL* 12.5MG PER 1/2 TAB (TopROL *XL*) PO SCH (09:20)
[2020-10-28] MEDS: PANTOPRAZOLE 40MG TAB (PROTONIX) PO SCH (09:20)
[2020-10-28] MEDS: predniSONE 5 MG TAB PO SCH (09:20)
[2020-10-28] MEDS: FOLIC ACID 1 MG TAB PO SCH ×2 (09:20→20:32)
[2020-10-28] MEDS: DOCUSATE SODIUM 100MG CAPSULE PO SCH ×3 (09:20→20:42)
[2020-10-28] MEDS: HEPARIN SOD (PORCINE) 5000UNITS/ML 1ML VIAL/SYRINGE SQ SCH ×2 (09:21→20:32)
[2020-10-28] MEDS: NICOTINE 14 MG/24 HR TRANSDERMAL TD SCH (09:21)
[2020-10-28] MEDS ORDERED: VANCOMYCIN HCL 750 MG, VIAL MATE ADAPTER 1 EACH in NS 250 ML IV ONE (11:00)
[2020-10-28 11:47] LABS: APPEARANCE, URINE CLEAR (CLEAR); BACTERIA, URINE AUTO 1+ (NEGATIVE); BILIRUBIN, URINE AUTO NEGATIVE (NEGATIVE); BLOOD, URINE BLOOD 2+ (NEGATIVE); COLOR, URINE YELLOW (YELLOW); GLUCOSE, URINE (UA) AUTO NEGATIVE (NEGATIVE); KETONE, URINE AUTO NEGATIVE (NEGATIVE); LEUKOCYTE ESTERASE, URINE AUTO NEGATIVE (NEGATIVE); NITRITE, URINE AUTO NEGATIVE (NEGATIVE); PROTEIN, URINE AUTO 1+ mg/dL (NEGATIVE); RBC, URINE AUTO 25 /HPF (0-3); SPECIFIC GRAVITY URINE AUTO 1.024 (1.002-1.035); SQUAMOUS EPITHELIAL CELL UR AU 0 /HPF (0-6); UROBILINOGEN, URINE AUTO 0.2 mg/dL (0.0-2.0); WBC, URINE AUTO 5 /HPF (0-3)
[2020-10-28] MEDS ORDERED: VANCOMYCIN HCL 500 MG in D5W MINI-BAG PLUS 100 ML IV ONE (12:00)
[2020-10-28] MEDS ORDERED: IPRATROPIUM 0.5MG/ALBUTEROL 2.5MG INH SOL UD 3ML (DUONEB) NEB PRN (12:05)
[2020-10-28 12:15] LABS: CHLORIDE,RANDOM URINE < 10 MEQ/L; CREATININE,RANDOM URINE 94.4 MG/DL; SODIUM,RANDOM URINE 34 MEQ/L
[2020-10-28] MEDS: IPRATROPIUM 0.5MG/ALBUTEROL 2.5MG INH SOL UD 3ML (DUONEB) NEB SCH ×2 (13:38→19:43)
--- NOTE | 2020-10-28 13:56 | REP ---
INDICATION: suspected pneumonia. COMPARISON: CT angio and portable chest 10/27/2020 TECHNIQUE: AP seated FINDINGS: I am loss in the left hemithorax with thoracotomy clips about the right hilum from prior upper lobectomy. Retrocardiac patchy infiltrate or atelectasis on the left, the better visualized by CT. Right lung appears clear without patchy infiltrate atelectasis today there is a E healing rib fracture posterolateral right 8th rib as before there is no pneumothorax, pneumomediastinum or definite effusion on these 2 studies. The underlying fibrosis and COPD are as before. Calcified tortuous aortic at the arch unchanged prominent the stefan and some degenerative changes at the of the thoracic spine without acute compression deformity also stable. IMPRESSION: 1. Postthoracotomy changes in left upper lobectomy changes again noted with some volume loss clips about the left hilum and post surgical rib findings upper chest. The patchy retrocardiac density left lower lobe better seen by CT than this exam but still suggested. Grossly unchanged. 2. No right base infiltrate or atelectasis. There is underlying fibrosis and COPD with the pulmonary arteries prominent centrally and echo tortuous calcified aorta all stable. Healing posterolateral right 8th rib fracture as before. <Electronically signed by Sascha Cano > 10/28/20 [id number]
[2020-10-28] MEDS: methylPREDNISolone 125MG 2ML VIAL IV SCH ×2 (14:18→20:32)
[2020-10-28] MEDS: ACETAMINOPHEN TAB 650MG DOSE (2X325MG) PO PRN (17:11)
--- NOTE | 2020-10-28 18:26 | IPNPDOC ---
Date Seen The patient was seen on 10/28/20. Progress Note SUBJECTIVE: Mr Howard was sleeping when I entered his room this morning. He is awake and alert but does fall asleep from time to time while I am speaking to him. He states that he didn't sleep very soundly last night after being woken up by the hospital staff. He remembers Dr. Jefferson debriding the eschar on his right lower extremity yesterday evening and states his leg does not hurt today. He has an oxygen saturation of 96% on 3L NC. He denies chest pain, shortness of breath, abdominal pain, nausea, vomiting, or diarrhea. OBJECTIVE PHYSICAL EXAMINATION: VITAL SIGNS: Please see below. GENERAL: Elderly man sitting in bed in no acute distress HEENT:trachea midline, mucous membranes pink and moist, crescent scar left forehead CARDIOVASCULAR: S3 gallop noted, no murmurs or rubs appreciated, patient is in sinus rhythm RESPIRATORY: decreased inspiratory effort bilaterally, rhonchi heard bilaterally ABDOMINAL: soft, nontender to palpation in all four quadrants EXTREMITIES: Eschar on right knee and pretibial region of right lower extremity are wrapped in wound care coverings. Wound between first and second toes on right foot appears clean and moist. No pulses are felt on right lower extremity distal to knee. PSYCHOLOGICAL: Alert and oriented x 3 LABORATORY DATA, IMAGING STUDIES, MICROBIOLOGY: Please see below. Echocardiogram: Mild global left ventricle systolic dysfunction with regional wall motion abnormalities. There are findings suggestive of grade 1 left ventricular diastolic dysfunction manifested by abnormal relaxation. Aortic valve sclerosis with mild aortic regurgitation and trivial aortic stenosis. Mitral annular calcification with [id number] mitral regurgitation. Mild pulmonic regurgitation. Mildly dilated aortic root. DVT prophylaxis ordered?: yes, continue subcutaneous heparin ASSESSMENT AND PLAN: Mr. 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 PROBLEMS: #Acute kidney injury -Patient was diuresed with torsemide and underwent a CTA with contrast yesterday. -His kidney function declined today and his creatinine increased by .38 in 24 hours -Nephrology was consulted, we appreciate Dr. Spann's input. We will hold torsemide and other nephrotoxic drugs for now. #Suspected infection 2/2 pneumonia vs non healing ulcers of right lower extremity -MRSA PCR negative -started zosyn and vancomycin for broad spectrum coverage -Will d/c vanc 10/29/20 -WBC increased today from yesterday -Ordered procalcitonin for tomorrow #Left sided diastolic heart failure [place] [address], holding diuretics for renal function improv ement -continue 2gram sodium diet, strict I/0's, daily weighs -2D echocardiogram results as above -conintue 1500cc restricted fluid -continue metoprolol #Coronary artery disease -Patient denies chest pain today with inspiration or at rest -has severe three vessel coronary artery disease & a large coronary aneurysm. He needs surgical revascularization and repair of aneurysm -His family has decided to wait for surgery until father is physical able to withstand a surgery #PVD -Patient was scheduled for angioplasty 10/27/20 with vascular surgery at [facility] to reestablish blood supply to right lower extremity which he will have to reschedule. -Dr. Parra is not available until Friday. He will have to follow up on this as an outpatient if he is discharged before 10/30/20. #Vascular ulcerations -Patient has had these for a few months- per patient's daughter -right lower extremity: located on knee, pretibial region, inbetween first and second toes -WBC count increased today to 16.1 -Consulted Dr. Pierre and Dr. Jefferson, we appreciate their input on this patient -Daughters are open to father having vascular surgery while at [facility]. May consult Dr. Parra on Friday. -Patient would highly benefit from having vascular surgery to reintroduce blood flow to right lower extremity. This would accelerate healing of ulcerations -continue to follow daily wound care orders per Dr. Pierre -Supplementing patient's diet with ensure #Angina pectoralis likely 2/2 Musculoskeletal -now resolved -We ruled out [place], PE and DVT at this time (negative troponins, duplex venous u/s, and CTA) -This is likely musculoskeletal in origin. The patient has frequent falls and has healing rib fracture bilaterally as seen on Chest x-ray. #Large coronary artery aneurysm -2D echocardiogram results as above. No aneurysm visualized with Echo -Received patient records from [facility], he has a large coronary artery aneurysm which needs to be repaired. #Frequent falls -likely multifactorial 2/2 PVD, deconditioning, medications -Patient has old healing rib fractures bilaterally on chest x-ray -Patient evaluated by PT/OT-They recommend that patient received rehab upon discharge. He is unstable and required 2 people to assist him for stand pivots. -will continue to hold hydroxyzine -Patient had ARU admission screening and will likely be discharged to rehab. He daughters would like their father to eventually return home after acute rehab. #CKD stage 3 -GFR decreased today but still wnl: 44.0 -Repeat CMP ordered for AM -Consulted nephrology today #COPD -continue albuterol inhaler -Started duonebs q 4 hours and solumedrol to help improve patient pulmonary function -Patient on 3L O2 at baseline #Hypertension -Stable 135/63 -continue metoprolol #Depression -holding home medications #Tobacco use disorder -started smoking age 15 -continues to smoke 1/2 ppd -ordered nicotine patch 14 #DVT prophylaxis: continue subcutanous heparin DISPOSITION: We will continue to monitor patient for clinical improvement. We consulted nephrology today and appreciate their input. We will hold diuresing the patient and will focus on optimizing his lung function. I spoke to patient's two daughters today and answered their questions. They are open to their father having vascular surgery done at [facility] with Dr. Parra if she is available. If patient is still in the hospital on Friday we may consult Dr. Parra. We have supplemented his diet with ensure drinks to improve healing of ulcers on right lower extremity. GME ATTESTATION My faculty preceptor for this patient encounter was physically present during the encounter and was fully available. All aspects of the patient interview, examination, medical decision making process, and medical care plan development were reviewed and approved by the faculty preceptor. The faculty preceptor is aware and concurs with the plan as stated in the body of this note and will attest to such by his/her cosignature. VS, I&O, 24H, Fishbone Vital Signs/I&O Vital Signs Date Time Temp Pulse Resp B/P (MAP) Pulse Ox O2 Delivery O2 Flow Rate FiO2 10/28/20 16:00 26 96 Nasal Cannula 3.0 10/28/20 12:00 97.5 66 135/63 (87) I&O- Last 24 Hours up to 6 AM 10/28/20 06:00 Intake Total 1756 ml Output Total 2075 ml Balance -319 ml Laboratory Data 24H LABS Laboratory Tests 2 10/28/20 04:53: Immature Granulocyte % (Auto) 1.1, Neutrophils (%) (Auto) 83.0H, Lymphocytes (%) (Auto) 7.3L, Monocytes (%) (Auto) 7.4, Eosinophils (%) (Auto) 1.0, Basophils (%) (Auto) 0.2, Neutrophils # (Auto) 13.3H, Lymphocytes # (Auto) 1.2L, Monocytes # (Auto) 1.2H, Eosinophils # (Auto) 0.2, Basophils # (Auto) 0.0, Nucleated Red Blood Cells % (auto) 0.0, Anion Gap 8, Glomerular Filtration Rate 44.0, Calcium Level 9.5, Magnesium Level 2.4, Total Bilirubin 0.6, Aspartate Amino Transf (AST/SGOT) 92H, Alanine Aminotransferase (ALT/SGPT) 35, Alkaline Phosphatase 76, GC-Tbb-B-Type Natriuretic Peptide 71480B, Total Protein 7.7, Albumin 3.3, Albumin/Globulin Ratio 0.8 10/28/20 08:17: Methicillin-Resist S.aureus DNA PCR NOT DETECTED 10/28/20 11:30: Urine Color YELLOW, Urine Appearance CLEAR, Urine pH 5.0, Urine Specific [place] 1.024, Urine Protein 1+H, Urine Glucose (Auto)(UA) NEGATIVE, Urine Ketones (Auto) NEGATIVE, Urine Blood 2+H, Urine Nitrite NEGATIVE, Urine Bilirubin NEGATIVE, Urine Urobilinogen 0.2, Urine Leukocyte Esterase (Auto) NEGATIVE, Urine WBC (Auto) 5H, Urine RBC (Auto) 25H, Urine Hyaline Casts (Auto) 0, Urine Bacteria (Auto) 1+H, Urine Squamous Epithelial Cells 0, Urine Sperm (Auto) , Urine Random Creatinine 94.4, Urine Random Sodium 34, Urine Random Chloride < 10 CBC/BMP Laboratory Tests 10/28/20 04:53 Microbiology Microbiology 10/26/20 Stool Occult Blood ([facility]) - Final, Complete 10/25/20 Stool Occult Blood ([facility]) - Final, Complete 10/24/20 Respiratory Virus Panel ([facility]) [facility] - Final, Complete GME ATTESTATION GME ATTESTATION My faculty preceptor for this patient encounter was physically present during the encounter and was fully available. All aspects of the patient interview, examination, medical decision making process, and medical care plan development were reviewed and approved by the faculty preceptor. The faculty preceptor is aware and concurs with the plan as stated in the body of this note and will attest to such by his/her cosignature. ATTENDING NOTE I, Krishan White, have independently examined this patient and performed my own physical exam, as well as reviewed the documentation and edited where necessary. I have discussed in detail with the resident / student the findings and plan of treatment as documented by the resident / student and edited their note. I agree with their findings and treatment plan and have edited their documentation. I will continue to follow the patient during this hospital stay. KASH HENSON DO Oct 28, 2020 18:26 KRISHAN WHITE MD Oct 29, 2020 08:33
--- NOTE | 2020-10-28 18:34 | CR ---
CONSULTATION DATE: 10/28/2020 REQUESTING PHYSICIAN: Krishan White MD CONSULTING PHYSICIAN: Shell Spann M.D. REASON FOR CONSULTATION: Management of acute renal disease. CHIEF COMPLAINT: The patient presented to the hospital on October 24, 2020 with chest discomfort and shortness of breath. HISTORY OF PRESENT ILLNESS: Note: History of was obtained from the medical chart and from the medical team. The patient himself is not a very good historian. Michael Howard is a 80-year-old male with past medical history of hypertension, chronic kidney disease stage 3, baseline creatinine of around 1.5 as per previous records. He presented to the hospital on October 24, 2020 with chest discomfort and shortness of breath. He was admitted under the hospitalist service. He has multiple other comorbidities as mentioned below. His creatinine on arrival was 1.9 which was actually getting better up until yesterday. He had a creatinine of 1.[address] angio of the chest to rule out pulmonary embolism and he was started on the diuretics yesterday. His creatinine has bumped up to 1.6 today and nephrology service was called for further help in the management of this patient. I saw and evaluated the patient today morning at the bedside. He was able to answer a few questions. He is in mild respiratory distress. His diuretics have been stopped because of rising creatinine. PAST MEDICAL HISTORY: 1. Chronic kidney disease stage 3. 2. Peripheral vascular disease. 3. COPD. 4. Active smoker. 5. Coronary artery disease. 6. Squamous cell carcinoma of the left upper lobe. 7. Parotid tumors. 8. Hypothyroidism. 9. Hypertension. 10. Cerebral aneurysm. PAST SURGICAL HISTORY: 1. Status post craniotomy and repair of vein aneurysm in 1996. 2. Left lower lobectomy in 2017. 3. Cataract surgery. 4. Retina surgery. ALLERGIES: HE IS ALLERGIC TO GLUTEN FLOUR. FAMILY HISTORY: No significant family history of end-stage renal disease requiring hemodialysis. SOCIAL HISTORY: The patient is an active smoker. He has been smoking for about 60 years. He is still smoking 1/2 pack per day. Denies any illicit drug abuse or alcohol abuse. 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 REVIEW OF SYSTEMS: Constitutional: He denies any fevers or chills. Eyes: He denies any blurry vision, double vision. ENT: Denies any dysphagia, odynophagia. Cardiovascular: Denies any lower extremity edema or chest pain. Respiratory: He reports progressive shortness of breath. GI: Denies any nausea, vomiting. Genitourinary: He denies any dysuria or hematuria. Musculoskeletal: He denies any muscle aches and pains. Skin: Denies any rashes or ulcers. Hematological/oncological: Denies any bleeding or bruising. LEAD [employer] SERVICE MAN: Denies any stroke, seizures or weakness. All other review of system is negative. PHYSICAL EXAMINATION: GENERAL: The patient is awake, alert, oriented x3, laying in bed. VITAL SIGNS: Temperature is 97.8 degrees Fahrenheit. Blood pressure is 133/79. Pulse is 61. Respiratory rate of 20, saturating 95% on nasal cannula at three liters. HEAD AND NECK: Extraocular muscles are intact. Pupils are equally round and reactive to light. Mucous membranes are moist. Neck is supple, mildly elevated JVD. CARDIOVASCULAR: S1, S2, irregular rate. EXTREMITIES: No edema of the bilateral lower extremities. RESPIRATORY: The patient has bilateral rhonchi, more pronounced on the right side and there is decreased breath sounds at the left base. He also has upper airway secretions and gurgling sounds get better after he clears his throat. ABDOMEN: Soft, positive bowel sounds, nontender, no organomegaly. MUSCULOSKELETAL: No clubbing or cyanosis. Pulses are 2+. LEAD R[employer] SERVICE MAN: No focal deficits. Power is 5/5 in all extremities. LAB REVIEW: CBC showed a WBC of 16.1, hemoglobin 12.3, platelets of 205. Urinalysis done shows 1+ protein, 2+ blood. Urine creatinine was 94.4, sodium 134 and chloride was less than 10. BMP showed sodium 136, potassium 4.6, chloride 103, bicarb 25, BUN 31. Creatinine is 1.6, it was 1.2 yesterday. BNP is 28,839. Microbiology: No new cultures available at this time. IMAGING: A chest x-ray was done today which showed post-thoracotomy changes in the left upper lobectomy. Patchy retrocardiac density in the left lower lobe. There is no right base infiltrate or atelectasis. There is fibrosis and COPD with pulmonary arteries prominent centrally. CT angiogram was done yesterday of the chest which showed no pulmonary embolus, status post left thoracotomy and partial pneumonectomy. Subtle infiltrate in the left base with inspissated endobronchial secretions. CURRENT INPATIENT MEDICATIONS: The patient's medications were all reviewed by myself. He is currently getting vancomycin and Zosyn. He is getting Ipratropium and Proventil nebulizations. He is on Mylanta, vitamin B12, Colace 100 mg twice a day, folic acid 1 mg p.o. twice a day, levothyroxine 300 mcg p.o. daily. He has been started on Solu-Medrol 40 mg IV q.8 hourly. He is on Metoprolol 37.5 mg p.o. daily, Milk of Mag, nicotine patch, Protonix 40 mg p.o. daily, He was being given torsemide 20 mg p.o. daily which has been stopped now. ASSESSMENT AND PLAN: 1. Acute renal failure. The patient has bump in creatinine from use of IV contrast dye and diuretic yesterday. I hope this acute kidney injury is transient and it is secondary to use of contrast. His creatinine should plateau over the next 24 to 48 hours and renal function should start improving. I would hold off on using the diuretics at this time. 2. Pneumonia and acute COPD exacerbation. The patient has already been started on vancomycin and Zosyn. He is getting nebulizations and he has been started on steroids. The patient does not have significant evidence of volume overload at this time. 3. Hypertension. Blood pressure is controlled with current dose of metoprolol. Avoid use of MALINA inhibitors or angiotensin receptor blockers at this time. 4. Chronic combined systolic and diastolic congestive heart failure. The patient has a slightly hypokinetic left ventricle with LV ejection fraction of 45-50% and grade 1 diastolic dysfunction. As mentioned above because of acute renal failure and use of IV contrast dye, I would hold off on using the diuretic at this time. The patient will be started on diuretics once renal function starts improving back to baseline. Thank you for involving me in the care of this patient. I shall be happy to follow the patient along with you tomorrow morning.
[2020-10-28] MEDS: CYANOCOBALAMIN 500 MCG TAB PO SCH (20:32)
[2020-10-29] VITALS (9 sets, daily range): BP systolic 116–147; BP diastolic 63–98; O2SAT 95–96
[2020-10-29] MEDS: PIPERACILLIN/TAZOBACTAM SOD 3.375 GM in D5W MINI-BAG PLUS 50 ML IV SCH ×4 (02:08→20:53)
[2020-10-29] MEDS: IPRATROPIUM 0.5MG/ALBUTEROL 2.5MG INH SOL UD 3ML (DUONEB) NEB SCH ×2 (02:44→08:05)
[2020-10-29] MEDS: methylPREDNISolone 125MG 2ML VIAL IV SCH ×3 (05:30→20:53)
[2020-10-29] MEDS: LEVOTHYROXINE 150MCG TABLET (0.15MG) PO SCH (05:30)
[2020-10-29 06:14] LABS: BASO % 0.1 % (0.0-1.0); HEMOGLOBIN 10.6 g/dl (13.5-17.5); LYMPH # 0.3 10^3/uL (1.5-5.0); LYMPH % 1.6 % (24.0-44.0); MEAN CORPUSCULAR HEMOGLOBIN 32.9 pg (27.0-33.0); MEAN CORPUSCULAR HGB CONC 33.1 g/dl (32.0-36.5); MEAN CORPUSCULAR VOLUME 99.4 fl (80.0-96.0); MONO # 0.6 10^3/uL (0.0-0.8); MONO % 3.4 % (2.0-8.0); NEUTROPHILS # 16.2 10^3/uL (1.5-8.5); PLATELET COUNT, AUTOMATED 197 10^3/uL (150-450); RED BLOOD COUNT 3.22 10^6/uL (4.30-6.10); WHITE BLOOD COUNT 17.2 10^3/uL (4.0-10.0)
[2020-10-29 06:39] LABS: ALBUMIN 2.8 GM/DL (3.2-5.2); BILIRUBIN,TOTAL 0.5 MG/DL (0.2-1.0); CALCIUM LEVEL 9.2 MG/DL (8.8-10.2); CREATININE FOR GFR 2.22 MG/DL (0.70-1.30); GLOMERULAR FILTRATION RATE 30.6 (>42); MAGNESIUM LEVEL 2.6 MG/DL (1.8-2.4); POTASSIUM SERUM 4.3 MEQ/L (3.5-5.1); TOTAL PROTEIN 6.3 GM/DL (6.4-8.2)
[2020-10-29 07:43] LABS: C REACTIVE PROTEIN QUANTITATIV 8.66 MG/DL (0.00-0.30)
[2020-10-29 07:59] LABS: C REACTIVE PROTEIN QUANTITATIV 21.4 MG/DL (0.00-0.30)
[2020-10-29] MEDS: PANTOPRAZOLE 40MG TAB (PROTONIX) PO SCH (08:37)
[2020-10-29] MEDS: FOLIC ACID 1 MG TAB PO SCH ×2 (08:37→20:53)
[2020-10-29] MEDS: DOCUSATE SODIUM 100MG CAPSULE PO SCH ×2 (08:37→20:53)
[2020-10-29] MEDS: METOPROLOL SUCC *XL* 12.5MG PER 1/2 TAB (TopROL *XL*) PO SCH (08:40)
[2020-10-29] MEDS: HEPARIN SOD (PORCINE) 5000UNITS/ML 1ML VIAL/SYRINGE SQ SCH (08:40)
[2020-10-29] MEDS: NICOTINE 14 MG/24 HR TRANSDERMAL TD SCH (08:40)
[2020-10-29] MEDS ORDERED: LEVALBUTEROL 1.25 MG/0.5 ML CONCENTRATE NEB INH PRN (09:40)
[2020-10-29] MEDS ORDERED: VANCOMYCIN HCL 1,000 MG, VIAL MATE ADAPTER 1 EACH in NS 250 ML IV SCH (10:00)
--- NOTE | 2020-10-29 10:42 | IPNPDOC ---
Text Note Date of Service The patient was seen on 10/29/20. NOTE Subjective: Patient is a 80-year-old male with a PMHx of PVD, CAD, HTN, COPD, Chronic hypoxia (on 3L O2 at baseline), Squamous cell lung CA (s/p MAN lobe ctomy), Parathyroid malignancy, CKD3, Hypothyroidism, RA, Depression, Hx of Cerebral aneurysm (s/p left frontotemporal craniotomy), GERD, who presented to the emergency room after reporting 10 days, chest pain. Upon arrival, patient was found to have elevated BNP, creatinine, and there was concerns for CHF and JAG. Patient was initially admitted to the hospital service for further evaluation and treatment. Nephrology was called on consultation on 10/28. Patient was seen and examined at the bedside. Currently patient denies any chest pain or shortness of breath. Does report a mild cough without any significant expectoration. Denies any nausea, vomiting, abdominal pain, diarrhea. Objective: Vitals (See below) General: Lying in bed, apperas comfortable, AAOx3 HEENT: NC, AT CVS: +S1S2 Lungs: Fair air entry b/l, diffuse rhonchi appreciate bilaterally. No evidence o f crackles Abdomen: Soft, ND, NT Extremities: Right lower extremity with multiple ulcerations, right lower area reveals some edema, left lower extremity without any significant edema Imaging: CXR 10/24: There is evidence of a right pleural effusion. There is mild cardiomegaly accentuated by technique. Vascular US 10/24: There is no ultrasonographic evidence of deep venous thrombosis involving any of the visualized deep venous structures of the bilateral lower extremity as described above. Due to technical parameters calf vein DVT can not be ruled out. CT head 10/24: Status post left frontotemporal craniotomy for aneurysm clipping at the anterior aspect of the cavernous sinus on the left. Old encephalomalacia areas in the inferior frontal lobes bilaterally and the left inferior temporal lobe. 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 Small-vessel atherosclerotic changes and atrophy. Vascular calcification. No acute intracranial abnormality. CXR 10/25: Persistent slight right CP angle blunting. Small pleural effusion cannot be ruled out. VQ Scan 10/25: Indeterminate for pulmonary embolism. A pulmonary embolism cannot be ruled out. Contrast-enhanced CT angiography of the chest is recommended. ECHO 10/25: 1. Mild global left ventricle systolic dysfunction (EF: 45-50%) with regional wall motion abnormalities. There are findings suggestive of grade 1 left ventricular diastolic dysfunction manifested by abnormal relaxation. 2. Aortic valve sclerosis with mild aortic regurgitation and trivial aortic stenosis. 3. Mitral annular calcification with [id number] mitral regurgitation. 4. Mild pulmonic regurgitation. 5. Mildly dilated aortic root. CXR 10/26: Post thoracotomy partial pneumonectomy changes on the left. Healing right-sided rib fracture. Mild cardiomegaly. Otherwise no acute disease.. Vascular US 10/26: No evidence for deep venous thrombosis. CXR 10/27: Cardiomegaly. Postthoracotomy changes on the left. Otherwise no acute disease.. CTA chest 10/27: No CT evidence of pulmonary embolus. Status post left thoracotomy partial pneu monectomy. Subtle infiltrate left base with inspissated endobronchial secretions. Emphysematous changes right upper lobe and right lung interstitial changes. CXR 10/28: 1. Postthoracotomy changes in left upper lobectomy changes again noted with some volume loss clips about the left hilum and post surgical rib findings upper chest. The patchy retrocardiac density left lower lobe better seen by CT than this exam but still suggested. Grossly unchanged. 2. No right base infiltrate or atelectasis. There is underlying fibrosis and COPD with the pulmonary arteries prominent centrally and echo tortuous calcified aorta all stable. Healing posterolateral right 8th rib fracture as before. Assessment and plan: JAG on CKD3 - possibly 2/2 contrast / diuretics - Cr baseline unclear - in 04/2019 was ~1.62 - Cr on admission was ~2.0; had had improvement initially; however has increased over last 48 hours - Will avoid nephrotoxic medications - s/p IV fluids - Nephrology on consultation; appreciate their input Acute on Chronic hypoxic respiratory failure - likely 2/2 multifactorial etiology; unlikely 2/2 PE - Baseline level of oxygen requirement is 3L NC - See below Acute exacerbation of COPD - Imaging noted above - Will c/w Solumedrol at current dose - Will adjust inhaled therapy to Xopinex (re: tachycardia) Possibly PNA - Patient has reported a productive cough - Remains afebrile / hemodynamically stable - Leukocytosis noted - PCT elevated - MRSA screen 10/28: Negative - Respiratory panel 10/24: Negative - Will check sputum / blood cultures - c/w Zosyn (Day #2); s/p Vancomycin Compensated Systolic and Diastolic CHF (EF: 45% / Grade 1 diastolic dysfunction) - Currently does not appear to be grossly volume overloaded - ECHO noted above - c/w daily weights, strict ins/outs, fluid restriction - s/p Torsemide (re: JAG) PVD with RLE ulcerations - Was scheduled for angioplasty of RLE on 10/27 at [facility] - Will have IR evaluate on Friday - Will have outpatient follow up with Vascular surgery Ulcerations of RLE - likely 2/2 PVD - Clinically patient denies any pain of his RLE - Ulcers have been noted to be there for several months as per patient's daughter - s/p Bedside debridement on 10/[address] Jefferson - c/w antibiotics (Zosyn) - c/w Dressing changes as ordered - Dr. Pierre (Advanced wound care) and Dr. Jefferson (Podiatry) on consultation; appreciate their input CAD - Denies any CP or SOB this morning - EKG reviewed without any changes compared to 05/09/20 - Troponin trend negative - Patient has severe three vessel coronary artery disease & a large coronary aneurysm - Patient was advised that he needs surgical revascularization and repair of aneurysm; patient and family have decided to wait for surgery until father is physical able to withstand a surgery Frequent falls - likely multifactorial 2/2 PVD, deconditioning, medications - Patient reports that his pain is well controlled - Imaging noted above - s/p Hydroxyzine - c/w PT and OT; likely will need rehabilitation moving forward HTN - BP remains well controlled - c/w Metoprolol Squamous cell lung CA - s/p MAN lobectomy Parathyroid malignancy Hypothyroidism - c/w Levothyroxine RA - Patient is on Prednisone BID as an outpatient - Currently on solumedrol; will resume Prednisone to home dose once clinically improved Depression - Sertraline has been held since admission; will consider starting within 24 hours Nicotine dependence - c/w Nicotine patch - Advised smoking cessation Hx of Cerebral aneurysm - s/p left frontotemporal craniotomy GERD - c/w Protonix DVT prophylaxis - c/w Heparin Disposition: - Awaiting clinical improvement VS,Kena, I+O VS, Kena, I+O Laboratory Tests 10/29/20 05:49 Vital Signs Date Time Temp Pulse Resp B/P (MAP) Pulse Ox O2 Delivery O2 Flow Rate FiO2 10/29/20 08:40 125 10/29/20 06:00 97.7 20 122/77 (92) 94 Nasal Cannula 3.0 I&O- Last 24 Hours up to 6 AM 10/29/20 06:00 Intake Total 1495 ml Output Total 850 ml Balance 645 ml CASEY ENCINAS MD Oct 29, 2020 10:42
[2020-10-29] MEDS: LEVALBUTEROL 1.25 MG/0.5 ML CONCENTRATE NEB INH SCH ×3 (12:04→20:42)
[2020-10-29] MEDS ORDERED: FUROSEMIDE 40MG/4ML VIAL (J1940) IV ONE (13:35)
--- NOTE | 2020-10-29 15:57 | IPN ---
NEPHROLOGY PROGRESS NOTE DATE: 10/29/2020 SUBJECTIVE: Patient was seen and examined at the bedside today morning. He was started on steroids and nebulizations yesterday morning along with the antibiotic. He reports his breathing is significantly better today. He is feeling much better. However, renal function continues to deteriorate. Creatinine has bumped up to 2.2 today. OBJECTIVE: VITAL SIGNS: Temperature 97.5 degrees Fahrenheit, blood pressure 124/87, pulse 100, respiratory rate 17, saturating 98% on nasal cannula at 2 liters. INTAKE AND OUTPUT: Urine output recorded as 700 mL yesterday, 400 mL so far today since overnight. Weight in the bed scale is 79.2 kg, which is slightly higher than yesterday. PHYSICAL EXAMINATION: GENERAL: Patient is awake, alert, oriented times three, laying in bed, no apparent distress. HEAD AND NECK EXAM: Extraocular muscles intact. Pupils equally round and reactive to light. Mucous membranes are moist. Neck is supple. Mildly elevated jugular venous distention (JVD). CARDIOVASCULAR: S1, S2. Regular rate. No significant edema of the bilateral lower extremities. RESPIRATORY: Mild respiratory rhonchi at the bilateral bases to mid-lung zones, but it is better today as compared with yesterday. ABDOMEN: Soft. Positive bowel sounds. Nontender. No organomegaly MUSCULOSKELETAL: Clubbing of the fingernails is noted. CENTRAL NERVOUS SYSTEM (PROCESSING CLERK): No focal deficit. Power is 5/5 in all extremities. LABORATORY STUDIES: CBC showed WBC 17.2, hemoglobin 10.6, platelets 197. BMP showed sodium 135, potassium 4.3, chloride 100, bicarbonate 22, BUN 47, creatinine 2.2, it was 1.6 yesterday, magnesium 2.6. C-reactive protein (CRP) is 21.4. CURRENT INPATIENT MEDICATIONS: Patient's medications were all reviewed by myself. He continues to be on intravenous (IV) Zosyn. Vancomycin has been stopped. I gave the patient one dose of IV Lasix 40 mg IV today. He has been started on Xopenex nebulizations. ASSESSMENT AND PLAN: 1. Acute renal failure. Most likely it is contrast-induced nephropathy. I am hopeful that creatinine should plateau and should start getting better by tomorrow. I have given the patient a small dose of Lasix, as mentioned below in #2. 2. Acute on chronic combined systolic and diastolic congestive heart failure. Patient has left ventricular (LV) ejection fraction of 45-50% with grade 1 diastolic dysfunction. He is slightly oliguric today. I am giving one dose of Lasix 40 mg IV. Further diuretic regimen will be adjusted tomorrow morning. 3. Acute chronic obstructive pulmonary disease (COPD) exacerbation and pneumonia. Patient is on Zosyn. Vancomycin is on hold. He is getting nebulizations and steroids. Clinically, his breathing is much better today. 4. Hypertension. Blood pressure is controlled with metoprolol.
[2020-10-29] MEDS: ACETAMINOPHEN TAB 650MG DOSE (2X325MG) PO PRN (16:53)
[2020-10-29] MEDS ORDERED: METOPROLOL SUCC (TopROL XL) 50MG **XL** TAB PO SCH (18:00)
[2020-10-29 18:04] LABS: FREE T4 1.44 NG/DL (0.76-1.46); THYROID STIMULATING HORMONE 2.38 uIU/ML (0.358-3.740)
[2020-10-29] MEDS ORDERED: NS 500 ML IV ONE (18:35)
[2020-10-29 18:56] LABS: CK-MB VALUE MASS 13.1 NG/ML (<3.6); MB/CK RELATIVE INDEX 5.44 (< OR =4); TROPONIN I 5.86 NG/ML (< 0.10)
[2020-10-29] MEDS ORDERED: ASPIRIN 325 MG TAB PO ONE (19:05)
[2020-10-29] MEDS ORDERED: HEPARIN DRIP 25,000 UNITS in IV 1 EA IV SCH (19:10)
[2020-10-29] MEDS ORDERED: HEPARIN SOD (PORCINE) 5000UNITS/ML 1ML VIAL/SYRINGE IV PRN (19:10)
[2020-10-29] MEDS ORDERED: ZOSY1SOL5 IV (19:13)
[2020-10-29] MEDS ORDERED: METO1TAB32 PO (19:13)
[2020-10-29] MEDS ORDERED: METO1TAB7 PO (19:13)
[2020-10-29] MEDS ORDERED: METH125VL IV (19:13)
[2020-10-29] MEDS ORDERED: ASPI-1 PO (19:13)
--- NOTE | 2020-10-29 19:45 | DS.PDOC ---
Discharge Summary General Date of Admission Oct 24, 2020 at 13:49 Date of Discharge 10/29/2020 Discharge Summary PROCEDURES PERFORMED DURING STAY: [None]. ADMITTING DIAGNOSES / DISCHARGE DIAGNOSES: NSTEMI Atrial fibrillation with RVR Lactic acidosis JAG on CKD3 - possibly 2/2 contrast / diuretics Acute on Chronic hypoxic respiratory failure - likely 2/2 multifactorial etiology; unlikely 2/2 PE Acute exacerbation of COPD Possibly PNA Compensated Systolic and Diastolic CHF (EF: 45% / Grade 1 diastolic dysfunction) PVD with RLE ulcerations Ulcerations of RLE - likely 2/2 PVD Frequent falls - likely multifactorial 2/2 PVD, deconditioning, medications HTN Squamous cell lung CA Parathyroid malignancy Hypothyroidism RA Depression Nicotine dependence Hx of Cerebral aneurysm GERD DVT prophylaxis COMPLICATIONS/CHIEF COMPLAINT: Chest Discomfort HISTORY OF PRESENT ILLNESS: Patient is a 80-year-old male with a PMHx of PVD, CAD, HTN, COPD, Chronic hypoxia (on 3L O2 at baseline), Squamous cell lung CA (s/p MAN lobectomy), Parathyroid malignancy, CKD3, Hypothyroidism, RA, Depression, Hx of Cerebral aneurysm (s/p left frontotemporal craniotomy), GERD, who presented to the emergency room after reporting 10 days, chest pain. Upon arrival, patient was found to have elevated BNP, creatinine, and there was concerns for CHF and JAG. Patient was initially admitted to the hospital service for further evaluation and treatment. Nephrology was called on consultation on 10/28. Patient was seen and examined at bedside this evening after he had persistent tachycardia. Patient reported that he did not experience any significant chest pain, shortness of breath or palpitations. The fact he did report that his breathing has had improvement. Denies any nausea, vomiting, abdominal discomfort or diarrhea. EKG acquired at the bedside had revealed evidence of atrial fibrillation with rapid ventricular response. Troponins were significantly elevated at 5.8. Case was discussed with brazing machine feeder, Dr. Summers. Case was also discussed with [facility] interventional cardiology and patient has been accepted on transfer to the hospitalist service. Discussed with hospitalist, Dr. Weinstein. HOSPITAL COURSE: NSTEMI - History of CAD - Currently denies any CP or SOB this morning - EKG currently was reviewed - Troponin elevated - Patient has severe three vessel coronary artery disease & a large coronary aneurysm - Patient was advised that he needs surgical revascularization and repair of aneurysm; patient and family have decided to wait for surgery until father is physical able to withstand a surgery - Discussed with interventional cardiology and hospitalist service; will provide ASA 325 and start Heparin drip - Will transfer to [facility] for interventional cardiology; but in the mean time will move patient to PCU for continued monitoring Atrial fibrillation with RVR - Will increase frequency of Metoprolol - TSH noted to be wnl - ECHO noted below - c/w Telemetry monitoring - Will start full anticoagulation with Heparin drip Lactic acidosis - Will start IV fluid hydration JAG on CKD3 - possibly 2/2 contrast / diuretics - Cr baseline unclear - in 04/2019 was ~1.62 - Cr on admission was ~2.0; had had improvement initially; however has increased over last 48 hours - Will avoid nephrotoxic medications - s/p IV fluids - Nephrology on consultation; appreciate their input Acute on Chronic hypoxic respiratory failure - likely 2/2 multifactorial etiol ogy; unlikely 2/2 PE - Baseline level of oxygen requirement is 3L NC - See below Acute exacerbation of COPD - Imaging noted above - Will c/w Solumedrol at current dose - Will adjust inhaled therapy to Xopinex (re: tachycardia) Possibly PNA - Patient has reported a productive cough - Remains afebrile / hemodynamically stable - Leukocytosis noted - PCT elevated - MRSA screen 10/28: Negative - Respiratory panel 10/24: Negative - Will check sputum / blood cultures - c/w Zosyn (Day #2); s/p Vancomycin Compensated Systolic and Diastolic CHF (EF: 45% / Grade 1 diastolic dysfunction) - Currently does not appear to be grossly volume overloaded - ECHO noted above - c/w daily weights, strict ins/outs, fluid restriction - s/p Torsemide (re: JAG) PVD with RLE ulcerations - Was scheduled for angioplasty of RLE on 10/27 at [facility] - Will have IR evaluate on Friday - Will have outpatient follow up with Vascular surgery Ulcerations of RLE - likely 2/2 PVD - Clinically patient denies any pain of his RLE - Ulcers have been noted to be there for several months as per patient's daughter - s/p Bedside debridement on 10/[address] Jefferson - c/w antibiotics (Zosyn) - c/w Dressing changes as ordered - Dr. Pierre (Advanced wound care) and Dr. Jefferson (Podiatry) on consultation; appreciate their input Frequent falls - likely multifactorial 2/2 PVD, deconditioning, medications - Patient reports that his pain is well controlled - Imaging noted above - s/p Hydroxyzine - c/w PT and OT; likely will need rehabilitation moving forward HTN - BP remains well controlled - c/w Metoprolol Squamous cell lung CA - s/p MAN lobectomy Parathyroid malignancy Hypothyroidism - c/w Levothyroxine RA - Patient is on Prednisone BID as an outpatient - Currently on solumedrol; will resume Prednisone to home dose once clinically improved Depression - Sertraline has been held since admission; will consider starting within 24 hours Nicotine dependence - c/w Nicotine patch - Advised smoking cessation Hx of Cerebral aneurysm - s/p left frontotemporal craniotomy GERD - c/w Protonix DVT prophylaxis - c/w Heparin DISCHARGE MEDICATIONS: Please see below. ALLERGIES: Please see below. PHYSICAL EXAMINATION ON DISCHARGE: Vitals (See below) General: Lying in bed, apperas comfortable, AAOx3 HEENT: NC, AT CVS: +S1S2 Lungs: Fair air entry b/l, diffuse rhonchi appreciate bilaterally. No evidence of crackles Abdomen: Soft, ND, NT Extremities: Right lower extremity with multiple ulcerations, right lower area reveals some edema, left lower extremity without any significant edema LABORATORY DATA: Please see below. IMAGING: CXR 10/24: There is evidence of a right pleural effusion. There is mild cardiomegaly accentuated by technique. Vascular US 10/24: There is no ultrasonographic evidence of deep venous thrombosis involving any of the visualized deep venous structures of the bilateral lower extremity as described above. Due to technical parameters calf vein DVT can not be ruled out. CT head 10/24: Status post left frontotemporal craniotomy for aneurysm clipping at the anterior aspect of the cavernous sinus on the left. Old encephalomalacia areas in the inferior frontal lobes bilaterally and the left inferior temporal lobe. 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 Small-vessel atherosclerotic changes and atrophy. Vascular calcification. No acute intracranial abnormality. CXR 10/25: Persistent slight right CP angle blunting. Small pleural effusion cannot be ruled out. VQ Scan 10/25: Indeterminate for pulmonary embolism. A pulmonary embolism cannot be ruled out. Contrast-enhanced CT angiography of the chest is recommended. ECHO 10/25: 1. Mild global left ventricle systolic dysfunction (EF: 45-50%) with regional wall motion abnormalities. There are findings suggestive of grade 1 left ventricular diastolic dysfunction manifested by abnormal relaxation. 2. Aortic valve sclerosis with mild aortic regurgitation and trivial aortic stenosis. 3. Mitral annular calcification with [id number] mitral regurgitation. 4. Mild pulmonic regurgitation. 5. Mildly dilated aortic root. CXR 10/26: Post thoracotomy partial pneumonectomy changes on the left. Healing right-sided rib fracture. Mild cardiomegaly. Otherwise no acute disease.. Vascular US 10/26: No evidence for deep venous thrombosis. CXR 10/27: Cardiomegaly. Postthoracotomy changes on the left. Otherwise no acute disease.. CTA chest 10/27: No CT evidence of pulmonary embolus. Status post left thoracotomy partial pneumonectomy. Subtle infiltrate left base with inspissated endobronchial secretions. Emphysematous changes right upper lobe and right lung interstitial changes. CXR 10/28: 1. Postthoracotomy changes in left upper lobectomy changes again noted with some volume loss clips about the left hilum and post surgical rib findings upper chest. The patchy retrocardiac density left lower lobe better seen by CT than this exam but still suggested. Grossly unchanged. 2. No right base infiltrate or atelectasis. There is underlying fibrosis and COPD with the pulmonary arteries prominent centrally and echo tortuous calcified aorta all stable. Healing posterolateral right 8th rib fracture as before. PROGNOSIS: Guarded ACTIVITY: [As tolerated]. DISCHARGE PLAN: Follow-up with [facility] interventional radiology Remain compliant with treatment plan and medications Return to the ER if you experience any problems DISPOSITION: [facility] DISCHARGE CONDITION: [Stable]. TIME SPENT ON DISCHARGE: 35 minutes. Vital Signs/I&Os Vital Signs Date Time Temp Pulse Resp B/P (MAP) Pulse Ox O2 Delivery O2 Flow Rate FiO2 10/29/20 18:00 97.5 114 16 121/90 (100) 95 Nasal Cannula 3.0 I&O- Last 24 Hours up to 6 AM 10/29/20 06:00 Intake Total 1495 ml Output Total 850 ml Balance 645 ml Laboratory Data Labs 24H Laboratory Tests 2 10/29/20 05:49: Immature Granulocyte % (Auto) 0.9, Neutrophils (%) (Auto) 94.0H, Lymphocytes (%) (Auto) 1.6L, Monocytes (%) (Auto) 3.4, Eosinophils (%) (Auto) 0.0, Basophils (%) (Auto) 0.1, Neutrophils # (Auto) 16.2H, Lymphocytes # (Auto) 0.3L, Monocytes # (Auto) 0.6, Eosinophils # (Auto) 0.0, Basophils # (Auto) 0.0, Nucleated Red Blood Cells % (auto) 0.0, Anion Gap 13, Glomerular Filtration Rate 30.6L, Calcium Level 9.2, Magnesium Level 2.6H, Total Bilirubin 0.5, Aspartate Amino Transf (AST/SGOT) 62H, Alanine Aminotransferase (ALT/SGPT) 40, Alkaline Phosphatase 74, C-Reactive Protein, Quantitative 21.40H, Total Protein 6.3L, Albumin 2.8L, Albumin/Globulin Ratio 0.8, Procalcitonin 4.10 10/29/20 17:10: Total Creatine Kinase 241, Creatine Kinase MB 13.1H, Creatine Kinase MB Relative Index 5.44H, Troponin I 5.86*H, Thyroid Stimulating Hormone (TSH) 2.380, Free Thyroxine 1.44 10/29/20 17:16: Lactic Acid Level 3.5*H CBC/BMP Laboratory Tests 10/29/20 05:49 Microbiology Microbiology 10/29/20 Gram Stain, Received Pending 10/29/20 Sputum Culture, Received Pending 10/29/20 Blood Culture, Received Pending 10/29/20 Blood Culture, Received Pending 10/26/20 Stool Occult Blood (JORGE L) - Final, Complete 10/25/20 Stool Occult Blood (JORGE L) - Final, Complete 10/24/20 Respiratory Virus Panel (PCR) (JORGE L) - Final, Complete Discharge Medications Scheduled Aspirin (Aspirin EC) 81 Mg Tablet.dr, 81 MG PO QPM, (Reported) Aspirin (Aspirin) 325 Mg Tablet, 325 MG PO ONCE Calcium Carbonate/Vitamin D3 (Calcium 600-Vit D3 400 Tablet) 1 Each Tablet, 1 TAB PO BID, (Reported) Cyanocobalamin (Vitamin B-12) (Vitamin B-12) 500 Mcg Tablet, 500 MCG PO QPM, (Reported) Folic Acid (Folic Acid) 1 Mg Tablet, 1 MG PO BID, (Reported) Guaifenesin (Mucinex) 600 Mg Tab.er.12h, 600 MG PO QHS, (Reported) Levothyroxine Sodium (Synthroid) 300 Mcg Tablet, 300 MCG PO QAM, (Reported) Methylprednisolone (Solu-Medrol 125 mg Vial) 125 Mg/2 Ml Vial, 40 MG IV Q8H Metoprolol Succinate (Metoprolol Succinate) 25 Mg Tab.er.24h, 50 MG PO BID Metoprolol Succinate (Metoprolol Succinate) 50 Mg Tab.er.24h, 50 MG PO BID Pantoprazole Sodium (Pantoprazole Sodium) 40 Mg Tablet.dr, 40 MG PO DAILY, (Reported) Hhcocaxnbdlk-Qtwu-Cudgwprx,Iso (Zosyn 3.375 gm/50 ml Galaxy) 3.375 Gm/50 Ml Froz.piggy, 1 KEISHA IV Q6H Scheduled PRN Acetaminophen (Acetaminophen) 500 Mg Tablet, 1,000 MG PO Q6H PRN for PAIN LEVEL 1-4, (Reported) Albuterol Sulfate (Ventolin Hfa) 18 Gm Hfa.aer.ad, 2 PUFF INH Q4H PRN for SOB/WHEEZING, (Reported) Allergies Coded Allergies: Gluten Flour (Verified Allergy, Unknown, 10/07/16) CASEY ENCINAS MD Oct 29, 2020 19:44
--- NOTE | 2020-10-29 19:58 | ECGEPIP ---
[facility] Test Date: 2020-10-29 Pat Name: CAROLINE YAÑEZ Department: Room: [place] [address] Gender: Male Microwave Engineer: [email or web address] : 1940 Requested By: CASEY ENCINAS Order Number: [id number] Reading MD: Harsh Garcia Measurements Intervals [place] Rate: 119 P: VT: QRS: 85 QRSD: 136 T: -45 QT: 328 QTc: 461 Interpretive Statements Sinus tachycardia with PACs; cannot rule out atrial fibrillation but P waves are seen Inferior infarct , age indeterminate Right bundle branch block Nonspecific repolarization abnormality which is more pronounced than prior tracing of 10/25/2020, and apparent atrial fibrillation is new Electronically Signed on 10-29-2020 19:57:37 EDT by Harsh Garcia
[2020-10-29] MEDS: NS 1,000 ML IV SCH (20:52)
[2020-10-29] MEDS: CYANOCOBALAMIN 500 MCG TAB PO SCH (20:53)
[2020-10-29 21:12] LABS: CK-MB VALUE MASS 11.8 NG/ML (<3.6); MB/CK RELATIVE INDEX 5.54 (< OR =4); TROPONIN I 5.72 NG/ML (< 0.10)
[2020-10-30] VITALS: BP 149/64
[2020-10-30 00:53] LABS: CK-MB VALUE MASS 10.5 NG/ML (<3.6); MB/CK RELATIVE INDEX 5.83 (< OR =4); TROPONIN I 5.87 NG/ML (< 0.10)
[2020-10-30] MEDS: PIPERACILLIN/TAZOBACTAM SOD 3.375 GM in D5W MINI-BAG PLUS 50 ML IV SCH (01:40)
[2020-10-30 03:07] LABS: BASO % 0.2 % (0.0-1.0); EOS # 0.5 10^3/uL (0.0-0.5); EOS % 2.5 % (0.0-3.0); HEMATOCRIT 31.1 % (42.0-52.0); HEMOGLOBIN 10.5 g/dl (13.5-17.5); LYMPH # 0.7 10^3/uL (1.5-5.0); LYMPH % 3.5 % (24.0-44.0); MEAN CORPUSCULAR HEMOGLOBIN 33.5 pg (27.0-33.0); MEAN CORPUSCULAR HGB CONC 33.8 g/dl (32.0-36.5); MEAN CORPUSCULAR VOLUME 99.4 fl (80.0-96.0); MONO # 0.7 10^3/uL (0.0-0.8); MONO % 3.7 % (2.0-8.0); NEUTROPHILS # 16.9 10^3/uL (1.5-8.5); NEUTROPHILS % 88.7 % (36.0-66.0); PLATELET COUNT, AUTOMATED 242 10^3/uL (150-450); RED BLOOD COUNT 3.13 10^6/uL (4.30-6.10); WHITE BLOOD COUNT 19.1 10^3/uL (4.0-10.0)
[2020-10-30 03:39] LABS: CK-MB VALUE MASS 9.4 NG/ML (<3.6); MB/CK RELATIVE INDEX 5.47 (< OR =4); TROPONIN I 5.46 NG/ML (< 0.10)
[2020-10-30 03:40] LABS: ALBUMIN 2.9 GM/DL (3.2-5.2); BILIRUBIN,TOTAL 0.4 MG/DL (0.2-1.0); C REACTIVE PROTEIN QUANTITATIV 14.1 MG/DL (0.00-0.30); CALCIUM LEVEL 8.8 MG/DL (8.8-10.2); CREATININE FOR GFR 2.28 MG/DL (0.70-1.30); GLOMERULAR FILTRATION RATE 29.6 (>42); MAGNESIUM LEVEL 2.6 MG/DL (1.8-2.4); POTASSIUM SERUM 5.1 MEQ/L (3.5-5.1); TOTAL PROTEIN 6.7 GM/DL (6.4-8.2)
[2020-10-30 04:00] VITALS: BP 143/89
[2020-10-30] MEDS: NS 1,000 ML IV SCH (05:05)
[2020-10-30] MEDS: LEVOTHYROXINE 150MCG TABLET (0.15MG) PO SCH (05:35)
[2020-10-30] MEDS: methylPREDNISolone 125MG 2ML VIAL IV SCH (05:35)
[2020-10-30 05:42] VITALS: BP 119/68
[2020-10-30 09:49] LABS: TOTAL T3 84.9 NG/DL (60.0-181.0)
== END 2020-10-30 06:12 | disposition short-term general hospital (02) | DRG 264 ==
LOC: M ED 11:20 → M ED INP 13:49 → M PCU 20:03 → M MSPAV 10-28 17:48 → M PCU 10-29 19:02
PROVIDERS: ADMIT Internal Medicine; ATTEND Internal Medicine
PROC: 0JBN0ZZ Excision of Right Lower Leg Subcutaneous Tissue and Fascia, Open Approach (ICD-10-PCS; principal; 2020-10-26)
DX: I21.4 Non-ST elevation (NSTEMI) myocardial infarction (principal); J18.9 Pneumonia, unspecified organism; J96.21 Acute and chronic respiratory failure with hypoxia; N17.9 Acute kidney failure, unspecified; I50.42 Chronic combined systolic (congestive) and diastolic (congestive) heart failure; E87.2 Acidosis; J44.1 Chronic obstructive pulmonary disease with (acute) exacerbation; I13.0 Hypertensive heart and chronic kidney disease with heart failure and stage 1 through stage 4 chronic kidney disease, or unspecified chronic kidney disease; L03.115 Cellulitis of right lower limb; I48.91 Unspecified atrial fibrillation; K21.9 Gastro-esophageal reflux disease without esophagitis; E03.9 Hypothyroidism, unspecified; N18.30 Chronic kidney disease, stage 3 unspecified; I70.25 Atherosclerosis of native arteries of other extremities with ulceration; R29.6 Repeated falls; F17.210 Nicotine dependence, cigarettes, uncomplicated; F32.9 Major depressive disorder, single episode, unspecified; M06.9 Rheumatoid arthritis, unspecified; Z85.118 Personal history of other malignant neoplasm of bronchus and lung; Z85.850 Personal history of malignant neoplasm of thyroid; Z79.899 Other long term (current) drug therapy; Z79.82 Long term (current) use of aspirin